=== PATIENT | male | born 1970 | race Caucasian/White ===

== ENCOUNTER 2019-08-24 13:04 | Outpatient (RCR) | payer OTHER, SELFPAY ==
--- NOTE | 2019-08-24 14:18 | HMH.PTOPEV ---
PT Outpatient Evaluation Rehab PT Outpatient Evaluation Start: 08/24/19 13:32 Freq: Status: Active Protocol: Document 08/24/19 14:03 NATHAN (Rec: 08/24/19 14:18 PHORCHERYLE [id number]) Electronically Signed By Ishan Baker, PT 08/24/19 14:03 Outpatient Therapy Subjective History Subjective History Pt is 48 yowm who presents with c/o pain in the R elbow x ~ 2-3 mos with insidious onset of symptoms. He reports pain is worse with lifting anything and any push/pull activity. 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 He has significant PMH with 2 extreme reconstructions of the R shld, pacemaker placement, 3 lumbar discectomies, 2 x L knee total reconstruction, and seizure disorder. He also reports intermittent tingling or numbess in the R 4th and 5th fingers (Tinel's sign positive at the medial elbow over the ulnar nerve). He reports limited relief from tylenol, ice packs, and oral steroids. Chief Complaint Pain,Stiff Symptom Type Ache,Sharp,Dull Symptoms Relieved By Rest/Positioning Symptoms Aggravated By Physical Activity,Lifting Prior Functional Limitations Reaching Current Functional Limitations Reaching,Lifting Symptom Description Constant but Variable Level of pain today (0-10) 5 Pain scale - at its worst (0-10) 8 Shoulder/Elbow Eval Shoulder Objective Measurements Shoulder MMT Right Anterior Deltoid Strength Grade 4 Good Shoulder Abduction Strength Grade 4 Good Shoulder Flexion Strength Grade 4 Good Shoulder Horizontal Abduction Strength 4 Good Grade Shoulder External Rotation Strength 4 Good Grade Shoulder Internal Rotation Strength 4 Good Grade Elbow Objective Measurements Palpation Tenderness Elbow Palpation Overall Comment R med epicondyle, lat epicondyle, distal bicep tendon, and tricep tendon Elbow Palpation Finding Tenderness tenderness over the lateral epicondyle right elbow exam st
== END 2019-08-24 13:05 | disposition home or self-care (01) ==
LOC: PT 13:04
PROVIDERS: PCP Nurse Practitioner; Visit Provider Orthopaedic Surgery
DX: M77.11 Lateral epicondylitis, right elbow (principal)
CPT/HCPCS: 97163

== ENCOUNTER → 2019-09-18 09:09 | Outpatient (CLI) | payer OTHER, SELFPAY ==
--- NOTE | 2019-09-18 09:12 | XR_ITS ---
PROCEDURE: XR ELBOW RT MIN 3V CLINICAL INDICATION: elbow pain COMPARISON: XR ELBOW RT MIN 3V from 07/12/2019 FINDINGS: No fracture or dislocation. There is normal mineralization. The joint spaces are well-preserved. No significant degenerative/arthritic changes. No erosive changes evident. Other findings:There is a small sclerotic area involving the proximal aspect the ulna and could be due to a bone island unchanged 07/12/2019. IMPRESSION: No change no acute finding Dictated by: Hiram Tipton MD 09/18/2019 09:56 Electronically signed by Hiram Tipton MD in [place] 09/18/2019 09:56
--- NOTE | 2019-09-18 09:12 | XR_ITS ---
PROCEDURE: XR SHOULDER RT MIN 2V CLINICAL INDICATION: shoulder pain COMPARISON: No exams were available for comparison FINDINGS: There are postsurgical changes with 2 anchors along the humeral head. There are mild osteoarthritic changes of the glenohumeral joint. Acromioclavicular joint has an unremarkable appearance. No acute fracture or dislocation. IMPRESSION: Postsurgical change with minimal osteoarthritic change of the glenohumeral joint Dictated by: Hiram Tipton MD 09/18/2019 09:41 Electronically signed by Hiram Tipton MD in [place] 09/18/2019 09:41
== END ==
PROVIDERS: PCP Nurse Practitioner; Visit Provider Orthopaedic Surgery
DX: M25.521 Pain in right elbow (principal); M25.511 Pain in right shoulder
CPT/HCPCS: 73030; 73080

== ENCOUNTER → 2019-09-25 10:32 | Outpatient (CLI) | payer OTHER, SELFPAY ==
--- NOTE | 2019-10-08 16:52 | PC.NURSE ---
165- pt notified of negative covid-19 test results 1656- RUKHSANA martin NOTIFIED AT THIS TIME. 1658 DR. ACOSTA NOTIFIED
[2019-10-08 18:32] LABS: Covid-19 Nasal PCR Sendout Lex Not Detected (Not Detected)
== END ==
PROVIDERS: Visit Provider Nurse Practitioner
DX: R05 Cough (principal); J02.9 Acute pharyngitis, unspecified; R06.02 Shortness of breath

== ENCOUNTER 2019-12-07 13:59 | Emergency (ER) | payer OTHER, SELFPAY ==
[2019-12-07 14:00] VITALS: BP 155/95; PULSE 85; RESP 20; TEMP 36.9; O2SAT 100
--- NOTE | 2019-12-07 14:16 | US_ITS ---
PROCEDURE: US TESTICULAR CLINICAL INDICATION: SWOLLEN LT TESTICLE, PAIN Painful and swollen left testicle COMPARISON: No exams were available for comparison FINDINGS: Right testicle is 4.4 x 2.6 x 2.8 cm. There is an epididymal cyst measuring 16 by 10 mm. There is blood flow to the right testicle. No testicular mass or hydrocele. The left testicle is 4 x 2.3 x 3.2 cm and has an unremarkable appearance. Blood flow is present. No mass evident. No hydrocele. IMPRESSION: Small epididymal cyst on the right otherwise negative scrotal ultrasound Dictated by: Hiram Tipton MD 12/07/2019 15:13 Electronically signed by Hiram Tipton MD in [place] 12/07/2019 15:13
--- NOTE | 2019-12-07 14:20 | PC.NURSE ---
Pt given urinal to obtain urine spec
--- NOTE | 2019-12-07 14:20 | PC.NURSE ---
rad called for us
--- NOTE | 2019-12-07 14:27 | PC.NURSE ---
Pt with US
[2019-12-07 14:31] LABS: Microscopic, Urine URINE MICROSCOPIC (MICROSCOPIC)
--- NOTE | 2019-12-07 14:48 | PC.NURSE ---
pt returned from rad
--- NOTE | 2019-12-07 14:51 | HMH.EDUROGM ---
ED Disposition Clinical Impression: Epididymitis Disposition: Home, Self-Care Condition on Discharge: Good Instructions: DI for Testicular Pain Additional Instructions: see dr moncada in am Prescriptions: levoFLOXacin [Levaquin 500mg tab] 500 mg PO DAILY #7 tab Transmission Status: Pending to [facility] Ketorolac Tromethamine [Toradol 10mg tablet] 10 mg PO Q6H 5 Days #10 tab Transmission Status: Pending to [facility] Referrals: Georgette Adame APRN [Primary Care Provider] - Felix Moncada MD [Staff Physician] - - Critical Care Critical Care Time: No Attestation: On 12/07/19, the high probability of a clinically significant, sudden or life threatening deterioration of the following system(s) required my full and direct attention, intervention and personal management. The time I documented below is in addition to time spent performing reported procedures but includes the following listed in this critical care notation. Medical Decision Making - Medical Records Medical records reviewed: Yes: I reviewed the patient's medical records. - Santosh Inquiry Pt receiving controlled substance: No Vital Signs: 12/07/19 14:00 Temperature 98.4 F Temperature Source Oral Pulse Rate [Right Radial] 85 Respiratory Rate 20 Blood Pressure [Right Arm] 155/95 H Blood Pressure Mean [Right Arm] 115 Blood Pressure Source [Right Arm] Automatic Cuff Blood Pressure Position [Right Arm] Sitting 02 Sat by Pulse Oximetry 100 Oxygen Delivery Method Room Air - Lab Data Lab results reviewed: Yes: I reviewed the patient's lab results. Lab Results 12/07/19 14:25: Urine Color Straw, Urine Appearance Clear, Urine pH 7.0, Ur Specific [place] 1.020, Urine Protein Trace, Urine Glucose (UA) Negative, Urine Ketones Negative, Urine Blood Negative, Urine Nitrate Negative, Urine Bilirubin Negative, Urine Urobilinogen 0.2, Ur Leukocyte Esterase Negative, Urine WBC Occasional, Urine Bacteria 1+, Urine Mucus 1+, Urine Sperm 1+ Orders (Tests/Meds): ED MEDICATIONS Generic Name Dose Route Start Last Admin Trade Name Freq PRN Reason Stop Dose Admin Sodium Chloride 1,000 mls @ 999 mls/hr 12/07/19 14:22 12/07/19 14:59 Sod Chlor 0.9% 1000ml Bag IV 12/07/19 15:22 999 mls/hr .Q1H1M ONE Administration Discontinued Medications Generic Name Dose Route Start Last Admin Trade Name Amari PRN Reason Stop Dose Admin Ketorolac Tromethamine 30 mg 12/07/19 14:22 12/07/19 14:59 Toradol 30mg/Ml Vial IV 12/07/19 14:23 30 mg ONCE ONE Administration Levofloxacin 500 mg 12/07/19 15:05 12/07/19 15:07 Levaquin 500mg Tab PO 12/07/19 15:06 500 mg ONCE ONE Administration Protocol ORDERS Category Date Time Status Complete Blood Count Auto Diff Stat Lab 12/07/19 14:16 Ordered Comprehensive Metabolic Panel Stat Lab 12/07/19 14:16 Ordered - US Data US Images: Other (scrotal) ED US Reviewed: Yes: I have viewed radiologist's interpretation Findings Narrative: no torsion Male Urogenital HPI - General Chief complaint: Urogenital-Male Stated complaint: left testicle pain Time Seen by Provider: 12/07/19 14:51 Mode of Arrival: Ambulatory Source of Information: Patient, Medical Record Limitations: No Limitations Description of Symptoms (Recalled from ER Triage Doc. by RN): PT C/O LT TESTICULAR PAIN/SWELLING THAT BEGAN YESTERDAY AND HASN'T GOTTEN ANY BETTER - History of Present Illness HPI Narrative: atraumatic lt testicular pain which started yesterday - no fever or penile d/c or std or lesions - heterosexual - MD Complaint: testicle pain, testicle swelling Onset (ago): day(s) Duration: constant Location: left testicle Severity: moderate Reports: denies other symptoms - Related Data Sexually active: Yes Home Medications Medication Instructions Recorded Confirmed alprazolam 1 mg tablet 1 mg PO QID tab 02/06/19 09/24/19 Previous Rx's Medication Instructi
[2019-12-07 14:56] LABS: Appearance,Urine CLEAR (Clear); Bilirubin,Urine Negative (Negative); Blood, Urine Negative (Negative); Color,Urine STRAW (Yellow); Glucose,Urine (UA) Negative (Negative); Ketones,Urine Negative (Negative); Leukocyte Esterase,Urine Negative (Negative); Nitrate,Urine Negative (Negative); Protein,Urine TRACE (Negative); Urobilinogen,Urine 0.2 EU/dl (0.2)
[2019-12-07 15:11] LABS: Bacteria,Urine 1+ /lpf; Mucus,Urine 1+ /lpf; Sperm,Urine 1+ /lpf; WBC,Urine Occasional #/hpf (0-3)
[2019-12-07 15:42] VITALS: BP 131/78; PULSE 76; RESP 18; TEMP 36.7; O2SAT 98
[2019-12-07 15:42] LABS: Basophils # 0.1 K/mm3 (0-0.2); Basophils % 0.9 % (0.1-2.0); Eosinophils # 0.2 K/mm3 (0.0-0.4); Eosinophils % 2.5 % (0.1-12.0); Hematocrit 46.1 % (42.0-52.0); Hemoglobin 15.4 g/dL (14.1-18.0); Lymphocytes # 1.4 K/mm3 (0.7-4.5); Lymphocytes % 18.6 % (10-50); Mean Corpuscular HGB Conc 33.4 g/dL (31.8-35.4); Mean Corpuscular Hemoglobin 30.5 pg (27.0-31.2); Mean Corpuscular Volume 91.2 fl (80-94); Mean Platelet Volume 7.9 fl (7.4-10.4); Monocytes # 0.5 K/mm3 (0.1-1.0); Monocytes % 5.9 % (1.7-9.3); Neutrophils # 5.5 K/mm3 (1.8-7.8); Neutrophils % 72.1 % (37.0-80.0); Platelet Count 248 K/mm3 (142-424); Red Blood Count 5.06 M/mm3 (4.60-6.20); Red Cell Distribution Width 13.9 % (11.5-17.5); White Blood Count 7.6 K/mm3 (4.8-10.8)
--- NOTE | 2019-12-07 15:44 | PC.NURSE ---
PT WAS OFFERED ADDITIONAL PAIN MEDICATION PRIOR TO D/C BUT PT REFUSED.
[2019-12-07 15:47] LABS: Alanine Aminotransferase 20 U/L (12-78); Albumin/Globulin Ratio 1.6 (1.1-1.8); Alkaline Phosphatase 120 U/L (38-126); Anion Gap 10.3 mEq/L (5-15); Aspartate Amino Transferase 30 U/L (17-59); Bilirubin,Total 0.4 mg/dl (0.2-1.3); Blood Urea Nitrogen 19 mg/dl (9-20); Calcium 9.6 mg/dl (8.4-10.2); Carbon Dioxide 30 mmol/L (22.0-30.0); Chloride 99 mmol/L (98-107); Creatinine Clearance Estimated 63 mL/min (50-200); Estimated Glomerular Filt Rate 59 ml/min (>60); GFR (African American) 72 ML/MIN (>60); Globulin 3.1 g/dL (1.3-3.2); Glucose 97 mg/dl (74-100); Potassium 4.3 mmoL/L (3.5-5.1); Sodium 135 mmol/L (136-145); Total Protein,Serum 8.1 g/dl (6.3-8.2)
== END 2019-12-07 15:44 | disposition home or self-care (01) ==
PROVIDERS: Emergency Provider Emergency Medicine; PCP Nurse Practitioner
DX: N45.1 Epididymitis (principal); F41.8 Other specified anxiety disorders; Z87.891 Personal history of nicotine dependence; G43.709 Chronic migraine without aura, not intractable, without status migrainosus; G40.909 Epilepsy, unspecified, not intractable, without status epilepticus; Z79.899 Other long term (current) drug therapy
CPT/HCPCS: 76870; 80053; 81001; 85025; 96365; 96375; 99283

== ENCOUNTER 2020-04-12 16:04 | Emergency (ER) | payer OTHER, SELFPAY ==
--- NOTE | 2020-04-12 16:10 | XR_ITS ---
PROCEDURE: XR SHOULDER RT MIN 2V CLINICAL INDICATION: PAIN Posttraumatic pain COMPARISON: CR XR SHOULDER RT MIN 2V from 09/18/2019 FINDINGS: No fracture or dislocation. No lytic or blastic change. There is normal mineralization. Mild osteoarthritic changes are present with slight decrease in the joint space. Postsurgical changes with 2 anchor screws in the humeral head Other findings:None. IMPRESSION: Postsurgical and mild osteoarthritic change, no acute finding Dictated by: Hiram Tipton MD 04/12/2020 16:48 Hiram Tipton MD in [place] 04/12/2020 16:48
--- NOTE | 2020-04-12 16:10 | HMH.EDUTC ---
[facility] Disposition Clinical Impression: Shoulder separation Disposition: Home, Self-Care Condition on Discharge: Good Instructions: AC Joint Separation Additional Instructions: Rest the extremity, apply ice for 15 minutes as tolerated three or four times per day, Elevate the extremity as tolerated while you are resting. Take ibuprofen for pain. Follow up with Dr. Hays. I put in a referral but you need to call her office and schedule an appointment. Follow up with your regular doctor. GO TO THE ER FOR ANY WORSENING SYMPTOMS Prescriptions: Ibuprofen [Ibuprofen 600mg Tablet] 600 mg PO Q6HP PRN #30 tab PRN Reason: Mild Pain Transmission Status: Received by [facility] Referrals: Georgette Adame APRN [Primary Care Provider] - Emily Hays MD [Physician] - Forms: Work/School Release Time of Disposition: 16:53 Medical Decision Making - Medical Records Medical records reviewed: No: I reviewed the patient's medical records. - Santosh Inquiry Pt receiving controlled substance: No Vital Signs: 04/12/20 16:13 04/12/20 17:06 Temperature 98.0 F Pulse Rate 70 Pulse Rate [Left Brachial] 70 Respiratory Rate 21 21 Blood Pressure 145/89 H Blood Pressure [Left Arm] 145/89 H Blood Pressure Mean [Left Arm] 107 Blood Pressure Source [Left Arm] Automatic Cuff Blood Pressure Position [Left Arm] Sitting 02 Sat by Pulse Oximetry 98 Oxygen Delivery Method Room Air - Radiology Data #1 Image(s): Shoulder Image Reviewed: Yes I reviewed the patient's radiology image Preliminary Findings: Abnormal, No Fracture Seen [facility] HPI - General Stated complaint: ao [id number] INJURED R SHOULDER Time Seen by Provider: 04/12/20 16:20 - History of Present Illness Provider Complaint: He states the 2 days ago he picked up a heavy board and almost dropped it. When he did this it resulted in him pulling his right arm and right shoulder. He has had right shoulder pain since then. The pain is worse with moving the arm. He has a history of having rotator cuff surgery on that shoulder several years ago. He states he feels like he has torn something back loose since this injury. - Related Data Home Medications Medication Instructions Recorded Confirmed alprazolam 1 mg tablet 1 mg PO QID tab 02/06/19 04/12/20 Vortioxetine Hydrobromide 20 mg PO DAILY 04/12/20 04/12/20 [Trintellix] Previous Rx's Medication Instructions Recorded Ibuprofen [Ibuprofen 600mg 600 mg PO Q6HP PRN #30 tab 04/12/20 Tablet] Allergies Allergy/AdvReac Type Severity Reaction Status Date / Time Tricyclic Compounds Allergy Unknown Verified 12/08/19 10:56 [TRICYCLIC COMPOUNDS] [facility] History - Hepatitis A Screen Attestation statement:: This patient has been screened for Hepatitis A risk factors. I have reviewed the patient's past medical history: Yes Medical History: Reports:: Anxiety, Asthma, Cancer, Internal Pacemaker, Seizures Denies:: Diabetes Mellitus Type 1, Diabetes Mellitus Type 2 Other Medical History: Reports: Arthritis Other Surgeries: Yes: Cancer Surgery, Pacemaker Amputation: No Fractures: Yes (ANKLE) Comment: 3 lower back, left knee reconstruction, right shoulder reconstruction - Social History Smoking Status: Former smoker Tobacco Type: cigarettes # Packs/Day (cigarettes): 1 Alcohol Intake: current Alcohol Intake Frequency:: holidays/special occasions only Substance Use Type: denies use Occupational Status: employed - Psychiatric History Pschychiatric History:: Reports:: Anxiety Family Hx:: Cancer, Hyperlipidemia, Heart Attack, Hypertension ROS Obtained: Yes All systems reviewed & no additional complaints - Constitutional Constitutional: Denies chills, Denies fever(s) - Musculoskeletal Musculoskeletal: Reports as per HPI - Integumentary/Breasts Skin/Breast: Denies redness, Denies rash, Denies wounds - Neurologic Neurologic: Denies tingling/numbne
[2020-04-12 16:13] VITALS: BP 145/89; PULSE 70; RESP 21; O2SAT 98; BMI 23.7
[2020-04-12 17:06] VITALS: BP 145/89; PULSE 70; RESP 21; TEMP 36.7; O2SAT 98
== END 2020-04-12 17:10 | disposition home or self-care (01) ==
PROVIDERS: Emergency Provider Nurse Practitioner Family; PCP Nurse Practitioner
DX: S43.001A Unspecified subluxation of right shoulder joint, initial encounter (principal); X50.0XXA Overexertion from strenuous movement or load, initial encounter; Y92.89 Other specified places as the place of occurrence of the external cause; Z95.0 Presence of cardiac pacemaker; G40.909 Epilepsy, unspecified, not intractable, without status epilepticus; Z87.891 Personal history of nicotine dependence
CPT/HCPCS: 73030; 99201

== ENCOUNTER → 2020-05-19 12:57 | Outpatient (CLI) | payer OTHER, SELFPAY ==
--- NOTE | 2020-05-19 12:59 | CT_ITS ---
PROCEDURE: CT SHOULDER RT W CON CLINICAL HISTORY: Rt shoulder pain,, hx of 2 reconstructions, right shoulder pain with limited range of motion, recent injury COMPARISON: CR XR SHOULDER RT MIN 2V from 04/12/2020 TECHNIQUE: Please see arthrogram report for description of that technique. Axial images obtained with sagittal and coronal reformats. All CT scans at the facility use one or more dose reduction, viz: automated exposure control, ma/kV adjustment per patient size (including targeted exams where dose is matched to indication, i.e. head), or iterative reconstruction technique. FINDINGS: There was normal localization of contrast within the shoulder joint. Contrast does not localize in the sub acromial region. No evidence of a full-thickness rotator cuff tear. There are 2 anchor screws in the humeral head anteriorly. There are mild osteoarthritic changes of the shoulder. There is a small defect within the superior glenoid labrum best seen on the coronal images series 601, image 28. This communicates with the articular surface and may be due to small incomplete labral tear versus a sublabral recess. The bicipital tendon appears in place. No acute fracture or dislocation is evident. No lytic or blastic change. IMPRESSION: 1. No evidence of rotator cuff tear. 2. Irregularity involving the superior aspect of the glenoid labrum possibly due to small labral tear versus a sublabral recess. 3. Osteoarthritic changes. Dictated by: Hiram Tipton MD 05/20/2020 06:04 Hiram Tipton MD in [place] 05/20/2020 06:04
--- NOTE | 2020-05-19 13:44 | IR_ITS ---
PROCEDURE: IR ARTHROGRAM SHOULDER RT CLINICAL INDICATION: RIGHT SHOULDER PAIN COMPARISON: CT CT SHOULDER RT W CON from 05/19/2020 FINDINGS: Technique: Following obtaining informed consent and time-out procedure with fluoroscopic guidance and local anesthesia with 1 percent buffered lidocaine, a 22 gauge spinal needle was inserted into the shoulder joint capsule via the anterior approach. Approximately 10 mL of a 50: 50 mixture of Optiray 320 and normal saline was injected into the shoulder joint. The patient tolerated the procedure well without evidence of immediate complication. Post exercise images were then obtained. The patient was then taken to CT where thin section images were obtained with multiplanar reformats. There was normal localization of contrast in this patient that has had a prior shoulder surgery with [address] There is no evidence of rotator cuff tear. Mild osteoarthritic changes are present at the shoulder joint. IMPRESSION: No evidence of rotator cuff tear. Mild osteoarthritis. Please see CT arthrogram report for further description Dictated by: Hiram Tipton MD 05/20/2020 08:47 Hiram Tipton MD in [place] 05/20/2020 08:47
== END ==
PROVIDERS: PCP Nurse Practitioner; Visit Provider Orthopaedic Surgery
DX: M19.011 Primary osteoarthritis, right shoulder (principal)
CPT/HCPCS: 73040; 73201

== ENCOUNTER → 2020-08-20 09:58 | Outpatient (CLI) | payer OTHER, SELFPAY ==
[2020-08-20 11:00] LABS: Coronavirus 19 IgG Antibody Negative (Negative)
[2020-08-20 11:01] LABS: Coronavirus 19 IgM Antibody Negative (Negative)
== END ==
PROVIDERS: Visit Provider Internal Medicine Gastroenterology
DX: Z01.818 Encounter for other preprocedural examination (principal); Z20.822 Contact with and (suspected) exposure to COVID-19; Z13.810 Encounter for screening for upper gastrointestinal disorder; Z12.11 Encounter for screening for malignant neoplasm of colon
CPT/HCPCS: 36415; 86328

== ENCOUNTER 2020-08-22 08:36 | Day surgery (SDC) | payer OTHER, SELFPAY ==
[2020-08-16 15:25] VITALS: BMI 25.1
[2020-08-22 08:58] VITALS: BP 158/89; PULSE 54; RESP 18; TEMP 36.6; O2SAT 97
[2020-08-22 09:33] VITALS: O2SAT 97
--- NOTE | 2020-08-22 09:49 | HMH.PROC ---
[facility] Procedure Note Procedure Note:: Upper Endoscopy Procedure Report: Esophagogastroduodenoscopy with cold biopsies Endoscopost: Scott Patel II, MD Referring Physician: Juan Luis Kaminski MD Date of Procedure: August 22, 2020 Equipment: Olympus GIF 180 standard upper endoscope Sedation: MAC sedation Indications: Mr. Purdy is a 49-year-old gentleman who is here for diagnostic upper endoscopy. He has had worsening heartburn and reflux. He has had epigastric and some lower abdominal pain and discomfort. He has bloating, nausea and some bilious vomiting. His CAT scan in January 2020 showed some mild enteritis. He was placed on metronidazole. He gets worse and nausea when he bends over and sometimes after he eats postprandially. He will have emesis 2 or 3 times weekly. He reports no weight loss. The patient also has some chronic diarrhea since September 2019. Procedure: Prior to the procedure, a history and physical exam was performed, and patient's medications and allergies were reviewed. The risks, benefits and alternatives of the sedation and procedure were discussed with the patient. All questions were answered and informed consent was obtained. The patient was brought to the procedure room. Patient identification and proposed procedure were verified by the physician and the nurse. The patient was placed in a left lateral decubitus position and the scope was passed under direct vision. Throughout the procedure, the patient's blood pressure, pulse, and oxygen saturations were monitored continuously. The upper GI endoscopy was accomplished without difficulty. The patient tolerated the procedure well. Findings: The scope was passed directly into the upper esophagus and advanced to the third portion of the duodenum. The post bulbar duodenum and duodenal bulb were normal with normal mucosa and conniventes. Biopsies were taken from the post bulbar duodenum to rule out celiac disease. The scope was withdrawn through a normal duodenal bulb and pylorus into the stomach. There was bile reflux with linear reactive gastropathy of the antrum and body. The remainder of the proximal body and fundus of the stomach were grossly normal. Upon retroflexion there was no hiatal hernia. 2 biopsies were taken in the antrum and along the lesser curvature for histology to rule out gastritis and/or H pylori. There was a gastric fundic polyp in the fundus of the stomach removed via cold biopsy. The scope was then withdrawn into the esophagus. There was grade B (LA classification) reflux esophagitis. A biopsy was taken at the GE junction to rule out intestinal metaplasia. The remainder of the esophageal mucosa was normal. Impression: 1. Grade B reflux esophagitis 2. Bile reflux with linear reactive gastropathy 3. Gastric fundic gland polyp Plan: I will follow-up the biopsies. I do feel that the patient has functional dyspepsia. He also has reflux esophagitis and I would recommend omeprazole daily. We will discuss additional dietary measures and treatment options. I will proceed with colonoscopy.
--- NOTE | 2020-08-22 10:07 | HMH.PROC ---
[facility] Procedure Note Procedure Note:: Colonoscopy Procedure Report: Colonoscopy with cold snare polypectomy and cold biopsies Endoscopist: Scott Patel II, MD Referring physician: Juan Luis Kaminski MD Date of Procedure: August 22, 2020 Equipment: Olympus 180 variable stiffness pediatric colonoscope Sedation: MAC sedation Indication: Mr. Nichole is a 49-year-old gentleman with chronic diarrhea that began in September 2019 and is here for diagnostic colonoscopy. He does report lower abdominal pain and watery diarrhea daily. His CAT scan in January 2020 showed some mild retention of stool as well as possible enteritis. He was treated with metronidazole. He reports no rectal bleeding or weight loss. He does have some gassiness and bloating. He reports no family history of colitis, Crohn's disease or colon cancer. His sister has irritable bowel syndrome. The patient's last colonoscopy was 4 to 5 years ago. Procedure: Prior to the procedure, a history and physical exam was performed, and patient's medications and allergies were reviewed. The risks, benefits and alternatives of the sedation and procedure were discussed with the patient. All questions were answered and informed consent was obtained. The patient was brought to the procedure room. Patient identification and proposed procedure were verified by the physician and the nurse. The patient was placed in a left lateral decubitus position and the scope was passed under direct vision. Throughout the procedure, the patient's blood pressure, pulse, and oxygen saturations were monitored continuously. The colonoscopy was accomplished without difficulty. The patient tolerated the procedure well. Findings: On digital rectal examination there was normal rectal tone. There were no external hemorrhoids. The prostate was 2+, mildly firm but symmetric without nodules. The colonoscope was introduced through the anal canal to the rectum and advanced to the cecum. The ileocecal valve and appendiceal orifice were identified. The scope was advanced a short distance into the ileum which appeared grossly normal. The scope was then withdrawn into the colon. The cecum and ascending colon were normal. Cold biopsies were taken from the right colon to rule out microscopic colitis. Within the transverse colon, there was a 4 mm polyp that was removed via cold snare polypectomy. The remaining descending, sigmoid and rectum were grossly normal. There were no mucosal abnormalities identified. Upon retroflexion within the rectum there were grade 1-2 internal hemorrhoids.The preparation was excellent throughout with [place] Preparation Score of 9. The cecal time was 12 minutes. Impression: 1. Diminutive transverse colon polyp 2. Grade 1-2 internal hemorrhoids Plan: I will follow up the polyp pathology and recommend repeat colonoscopy again in 7 years based upon the polyp histology. I suspect chronic IBS diarrhea. I would consider Viberzi. I would also consider dietary measures, bulk fiber, probiotic and IBgard.
[2020-08-22 10:08] VITALS: BP 107/59; PULSE 61; RESP 16; TEMP 36.4; O2SAT 97
[2020-08-22 10:18] VITALS: BP 110/70; PULSE 60; RESP 16; O2SAT 99
--- NOTE | 2020-08-22 10:19 | HMH.ANESCL ---
[facility] Anesthesia Checklist - Patient Identification Patient Identification: Arm Band - Structural Data Admitted From: Home Planned Operative Procedure/s: egd Consent for Planned Operative Procedure(s) Verified: Yes Verified Documents: Surgical Consent, History and Physical - NPO Status Verified Time NPO: 00:00 - Additional verifications Anesthesia Reactions: No - Airway Assessment C-Spine Mobility Assessed: Yes (mp2) TMJ Mobility Assessed: Yes Dentition: Dentures-good fit (removed) - Neurological Assessment Level of Consciousness: Awake, Alert - Anesthesia Plan Anesthesia Risk discussed: Yes Anesthesia Plan: Verified ASA Class: III Anesthesia Type: MAC [facility] History I have reviewed the patient's past medical history: Yes Medical History: Reports:: Anxiety, Arrhythmia, Asthma, Cancer (skin cancer), Internal Pacemaker Denies:: Diabetes Mellitus Type 1, Diabetes Mellitus Type 2, MRSA, Seizures *Have you ever received a pneumonia vaccine?: Yes *Have you received a flu vaccine this season?: No Other Medical History: Reports: Arthritis Anesthesia experience/problems:: nac Laterality Cases: Right: Other Other Surgeries: Yes: Cancer Surgery, Pacemaker Amputation: No Fractures: Yes (ANKLE) - *Social History Last grade of school completed: Advanced degree Smoking Status: Former smoker Tobacco Type: cigarettes, smokeless tobacco # Packs/Day (cigarettes): 1 #Yrs smoked (if former smoker): 20 Alcohol Intake: current Alcohol Intake Frequency:: a few times a week Substance Use Type: denies use *Occupational Status:: unemployed Housing: house Household Members: spouse, family *Travel in the last 8 weeks: None - Psychiatric History Pschychiatric History:: Reports:: Anxiety Family Hx:: Cancer, Coronary Artery Disease, Heart Attack
[2020-08-22 10:28] VITALS: BP 112/66; PULSE 57; RESP 18; O2SAT 99
[2020-08-22 10:38] VITALS: BP 144/74; PULSE 60; RESP 18; O2SAT 99
== END 2020-08-22 10:38 | disposition home health service (06) ==
LOC: OUTP 08:38
PROVIDERS: PCP Nurse Practitioner; Visit Provider Internal Medicine Gastroenterology
PROC: 0DJ08ZZ Inspection of Upper Intestinal Tract, Via Natural or Artificial Opening Endoscopic (ICD-10-PCS; CPT 43235; principal; 2020-08-22 11:00)
DX: K21.9 Gastro-esophageal reflux disease without esophagitis (principal); K31.9 Disease of stomach and duodenum, unspecified; K31.7 Polyp of stomach and duodenum; F41.9 Anxiety disorder, unspecified; J45.909 Unspecified asthma, uncomplicated; M19.90 Unspecified osteoarthritis, unspecified site; Z85.828 Personal history of other malignant neoplasm of skin; Z95.0 Presence of cardiac pacemaker; Z87.891 Personal history of nicotine dependence; Z88.8 Allergy status to other drugs, medicaments and biological substances; Z79.899 Other long term (current) drug therapy
CPT/HCPCS: 43239

== ENCOUNTER 2020-10-05 08:00 | Outpatient (RCR) | payer OTHER, SELFPAY | END 2020-10-05 08:05 | disposition home or self-care (01) | LOC: PT 08:00 | PROVIDERS: Visit Provider Orthopaedic Surgery | DX: M47.12 Other spondylosis with myelopathy, cervical region (principal) | CPT/HCPCS: 20560; 97010; 97012; 97110; 97140; 97163 ==

== ENCOUNTER → 2020-11-21 09:51 | Outpatient (POV) | payer OTHER, SELFPAY | PROVIDERS: Visit Provider Nurse Practitioner Family | DX: Z00.00 Encounter for general adult medical examination without abnormal findings (principal) ==

== ENCOUNTER 2021-01-22 11:54 | Emergency (ER) | payer OTHER, SELFPAY ==
[2021-01-22 12:37] VITALS: BMI 22.5
--- NOTE | 2021-01-22 12:38 | XR_ITS ---
PROCEDURE INFORMATION: Exam: XR Right Hand Exam date and time: 01/22/2021 12:38 PM Age: 50 years old Clinical indication: Pain; Hand; Right; Additional info: Fall TECHNIQUE: Imaging protocol: XR Right hand. Views: 3 or more views. 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 There is no evidence of acute fracture. There is no evidence of joint malalignment or dislocation. Sclerotic density noted within the distal aspect of the ulna may represent a bone island. Soft tissues: There are no soft tissue masses or fluid collections. IMPRESSION: 1. 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 2. No evidence of acute fracture. 3. No evidence of acute dislocation. 4. Sclerotic density noted within the distal aspect of the ulna may represent a bone island.
[2021-01-22 12:40] VITALS: BP 145/97; PULSE 75; RESP 14; TEMP 36.6; O2SAT 98; BMI 23.1
--- NOTE | 2021-01-22 14:25 | HMH.EDUTC ---
[facility] [place] Disposition Clinical Impression: Right hand pain Fall Qualifiers: Encounter type: initial encounter Qualified Code(s): W19.XXXA - Unspecified fall, initial encounter Disposition: Home, Self-Care Condition on Discharge: Good Instructions: DI for Hand Pain Additional Instructions: Rest the extremity, apply ice for 15 minutes as tolerated three or four times per day, Wear the esther wrap for compression, Elevate the extremity as tolerated while you are resting. Take ibuprofen for pain. I sent in a prescription to your pharmacy. Follow up with Dr. Cadet (orthopedics). Sometimes there can be fractures that don't show up well on the first set of x-rays. So, you should follow up if you continue to have symptoms. I put in a referral but you need to call his office and schedule an appointment. Follow up with your regular doctor. GO TO THE ER FOR ANY WORSENING SYMPTOMS Prescriptions: Ibuprofen [Ibuprofen 800mg Tablet] 800 mg PO Q8HP PRN #30 tab PRN Reason: Moderate Pain Transmission Status: Received by [id number] Referrals: Georgette Adame APRN [Primary Care Provider] - Hill Cadet MD [Staff Physician] - Time of Disposition: 14:27 Medical Decision Making - Medical Records Medical records reviewed: No: I reviewed the patient's medical records. - Santosh Inquiry Pt receiving controlled substance: No Reason not queried -: Santosh login issues Vital Signs: 01/22/21 12:40 01/22/21 14:37 Temperature 98 F 98 F Temperature Source Temporal Artery Scan Pulse Rate 79 Pulse Rate [Left] 75 Respiratory Rate 14 16 Blood Pressure 139/91 H Blood Pressure [Right Arm] 145/97 H Blood Pressure Mean [Right Arm] 113 02 Sat by Pulse Oximetry 98 - Radiology Data #1 Image(s): Hand Image Reviewed: Yes I reviewed the patient's radiology image, Yes I have reviewed radiologist's interpretation Preliminary Findings: No Fracture Seen Drink plenty of fluids. Take tylenol or ibuprofen for pain or fever. Take the medications as directed. Follow up with your regular doctor. GO TO THE ER FOR ANY WORSENING SYMPTOMS [facility] [place] HPI - General Stated complaint: fall 01/19 rt hand pain Time Seen by Provider: 01/22/21 12:45 Mode of Arrival: Ambulatory Source of Information: Patient Limitations: No Limitations Description of Symptoms (Recalled from Triage Doc. by RN): pt fell on his R hand, pt is now having pain. HEENT Symptoms (Recalled from RN notes): No Resp Symptoms (Recalled from RN notes): No Skin Symptoms (Recalled from RN notes): No MS Symptoms (Recalled from RN notes): Yes (R hand pain) Functional Status (Recalled from RN notes): na - History of Present Illness Provider Complaint: He states that yesterday he fell and came down on his right hand. Since then he has had right hand and wrist pain. He denies significant swellling today. - Related Data Home Medications Medication Instructions Recorded Confirmed alprazolam 1 mg tablet 1 mg PO QID tab 02/06/19 08/22/20 Bifidobacterium Infantis [Align] 4 mg PO DAILY 08/16/20 08/22/20 Gabapentin [Gabapentin 100mg Cap] 100 mg PO DAILY 08/16/20 08/22/20 Cyclobenzaprine HCl 10 mg PO TIDP PRN 08/22/20 08/22/20 [Cyclobenzaprine 10mg Tab*] Omeprazole [Omeprazole 20mg 20 mg PO DAILY 08/22/20 08/22/20 Capsule] Previous Rx's Medication Instructions Recorded vortioxetine 20 mg tablet 20 mg PO DAILY #90 tab 12/20/20 Ibuprofen [Ibuprofen 800mg 800 mg PO Q8HP PRN #30 tab 01/22/21 Tablet] Allergies Allergy/AdvReac Type Severity Reaction Status Date / Time Tricyclic Compounds Allergy Unknown Verified 01/22/21 12:43 [TRICYCLIC COMPOUNDS] - Worker's Comp Is this a Worker's Comp case?: No [facility] History - Hepatitis A Screen Drug use history?: No High risk sexual behaviors?: No History of sexually transmitted infection?: No Currently employed?: No Childcare worker?: No Do you have indoor plumbi
[2021-01-22 14:37] VITALS: BP 139/91; PULSE 79; RESP 16; TEMP 36.6
== END 2021-01-22 14:37 | disposition home or self-care (01) ==
PROVIDERS: Emergency Provider Nurse Practitioner Family; PCP Nurse Practitioner
DX: M79.641 Pain in right hand (principal); F41.9 Anxiety disorder, unspecified; Z95.0 Presence of cardiac pacemaker; J45.909 Unspecified asthma, uncomplicated; F17.210 Nicotine dependence, cigarettes, uncomplicated
CPT/HCPCS: 73130; 99202; G0463

== ENCOUNTER 2021-07-20 08:59 | Emergency (ER) | payer OTHER, SELFPAY ==
[2021-07-20 09:05] VITALS: BP 136/91; PULSE 101; RESP 21; TEMP 37.1; O2SAT 100; BMI 24.4
--- NOTE | 2021-07-20 09:45 | HMH.EDUTC ---
[facility] [place] Dis[place] Clinical Impression: URI (upper respiratory infection) Qualifiers: URI type: unspecified URI Qualified Code(s): J06.9 - Acute upper respiratory infection, unspecified Disposition: Home, Self-Care Condition on Discharge: Good Instructions: Sore Throat, DI for Fever (Symptom) -- Adult Additional Instructions: *Monitor Temp, Over the counter Motrin or Tylenol as directed/as needed Tylenol every 4 hours and Motrin every 6 hours (as long as your family doctor has told you that you can take it) for fever or pain. and straight to ER if unable to lower temp less than 101.0 after medication given *Warm salt water gargles may help to soothe the throat *Throat Lozenges *Warm fluids like tea with honey may help to soothe the throat *Sleep elevated *Humidifier/Vaporizer Your throat swab was sent for culture. Those results are typically sent to your primary care. Be sure to follow up in 2-3 days with your family doctor/primary care physician if no improvement so they can review those result and treat if necessary. If you don?t have a primary care doctor, I recommend you get one but in the mean time, you will have to return to a walk in clinic Follow up IMMEDIATELY for new or worsening symptoms or no Noticeable improvement over the next 48-72 hours. 911 for difficulty breathing or swallowing You were tested for today for COVID19 your test result should be back in the next 24-48 hours, you may check your results on the [facility] My Health Portal if you have trouble logging on you can call support or you will get a call if your results are Positive You was given a handout with instructions for Self Quarantine and Self isolation for while you wait on test results and what to do if they are positive If you are positive the Health Dept will be contacting you also Make sure to take your Vitamins Vit. C Vit D and Zinc if you can take them Prescriptions: Benzonatate [Benzonatate 100mg cap] 100 mg PO Q8HP PRN #15 cap PRN Reason: Cough Transmission Status: Received by [id number] Referrals: Juan Luis Kaminski MD [Primary Care Provider] - As needed Forms: Work/School Release Time of Disposition: 09:55 Medical Decision Making - Santosh Inquiry Pt receiving controlled substance: No Santosh was queried for this patient: No Vital Signs: 07/20/21 09:05 07/20/21 09:56 Temperature 98.8 F 98.8 F Temperature Source Oral Pulse Rate 101 H Pulse Rate [Right Brachial] 101 H Respiratory Rate 21 21 Blood Pressure 136/91 H Blood Pressure [Right Arm] 136/91 H Blood Pressure Mean [Right Arm] 106 Blood Pressure Source [Right Arm] Automatic Cuff Blood Pressure Position [Right Arm] Sitting 02 Sat by Pulse Oximetry 100 Oxygen Delivery Method Room Air - Lab Data Lab results reviewed: Yes: I reviewed the patient's lab results. Lab Results 07/20/21 09:14: Influenza Type A Ag Negative, Influenza Type B Ag Negative 07/20/21 09:14: Strep Scn Rapid Clinic Negative Orders (Tests/Meds): ORDERS Category Date Time Status Covid-19 Nasal PCR ([facility]) Routine Lab 07/20/21 09:14 Received Strep Screen Confirmation Stat Micro 07/20/21 09:14 Received [facility] UTC HPI - General Stated complaint: fever,sore throat,runny nose,headache Time Seen by Provider: 07/20/21 09:45 Mode of Arrival: Ambulatory Source of Information: Patient Limitations: No Limitations Description of Symptoms (Recalled from Triage Doc. by RN): PATIENT C/O FEVER, SORE THROAT, CHILLS, BODY ACHES, AND HEADACHE, SINCE YESTERDAY HEENT Symptoms (Recalled from RN notes): Yes Resp Symptoms (Recalled from RN notes): No Skin Symptoms (Recalled from RN notes): No MS Symptoms (Recalled from RN notes): Yes Functional Status (Recalled from RN notes): WNL - History of Present Illness Provider Complaint: Patient state that he started feeling bad yesterday States that he started feeling bad yesterday States that he has continued to feel worse State that he has been havi
[2021-07-20 09:54] LABS: UTC Strep Screen (Rapid) Negative (Negative)
[2021-07-20 09:55] LABS: UTC Influenza A Antigen Negative (Negative); UTC Influenza B Antigen Negative (Negative)
[2021-07-20 09:56] VITALS: BP 136/91; PULSE 101; RESP 21; TEMP 37.1; O2SAT 100
== END 2021-07-20 10:00 | disposition home or self-care (01) ==
PROVIDERS: Emergency Provider Nurse Practitioner; PCP Family Medicine
DX: J06.9 Acute upper respiratory infection, unspecified (principal); U07.1 COVID-19; Z87.891 Personal history of nicotine dependence
CPT/HCPCS: 87804; 87880; 99203; C9803; G0463; U0003; U0005

== ENCOUNTER → 2022-01-01 15:35 | Outpatient (CLI) | payer OTHER, SELFPAY ==
[2022-01-01 16:05] LABS: Basophils # 0.1 K/mm3 (0-0.2); Eosinophils # 0.1 K/mm3 (0.0-0.4); Eosinophils % 1.2 % (0.1-12.0); Hematocrit 46.3 % (42.0-52.0); Hemoglobin 14.9 g/dL (14.1-18.0); Lymphocytes # 1.1 K/mm3 (0.7-4.5); Mean Corpuscular HGB Conc 32.1 g/dL (31.8-35.4); Mean Corpuscular Hemoglobin 31.1 pg (27.0-31.2); Mean Platelet Volume 8.1 fl (7.4-10.4); Monocytes # 0.4 K/mm3 (0.1-1.0); Monocytes % 5.6 % (1.7-9.3); Neutrophils % 76.1 % (37.0-80.0); Platelet Count 229 K/mm3 (142-424); Red Blood Count 4.78 M/mm3 (4.60-6.20); Red Cell Distribution Width 13.9 % (11.5-17.5); White Blood Count 6.6 K/mm3 (4.8-10.8)
[2022-01-01 16:22] LABS: Alanine Aminotransferase 80 U/L (12-78); Albumin Level 4.4 g/dl (3.5-5.0); Albumin/Globulin Ratio 1.6 (1.1-1.8); Alkaline Phosphatase 140 U/L (38-126); Anion Gap 11.4 mEq/L (5-15); Aspartate Amino Transferase 58 U/L (17-59); Blood Urea Nitrogen 12 mg/dl (9-20); Calcium 9.4 mg/dl (8.4-10.2); Carbon Dioxide 30 mmol/L (22.0-30.0); Chloride 102 mmol/L (98-107); Estimated Glomerular Filt Rate 79 ml/min (>60); GFR (African American) 96 ML/MIN (>60); Globulin 2.7 g/dL (1.3-3.2); Glucose 108 mg/dl (74-100); Potassium 4.4 mmoL/L (3.5-5.1); Sodium 139 mmol/L (136-145); Total Protein,Serum 7.1 g/dl (6.3-8.2)
[2022-01-01 16:34] LABS: Bilirubin,Total < 0.1 mg/dl (0.2-1.3)
[2022-01-01 16:40] LABS: Free Thyroxine Index 1.9 ug/dL (5.93-13.13); T4 (Thyroxine) 5.5 ug/dl (5.53-11.0); Triiodothryronine (T3) Uptake 34 % (23.5-40.5)
[2022-01-01 16:54] LABS: Thyroid Stimulating Hormone 2.66 uIU/mL (0.465-4.68)
[2022-01-01 18:06] LABS: Iron 114 ug/dL (49-181)
[2022-01-01 18:15] LABS: Total Iron Binding Capacity 361 ug/dL (261-462)
[2022-01-01 21:09] LABS: Vitamin B12 261 pg/mL (239-931)
[2022-01-15 22:07] LABS: 1,25 Dihydroxy Vitamin D 75 pg/mL (.); 1,25-Dihydroxy, Vitamin D-2 <10 pg/mL (.); 1,25-Dihydroxy, Vitamin D-3 75 pg/mL (.)
== END ==
PROVIDERS: PCP Family Medicine; Visit Provider Nurse Practitioner Psychiatric/Mental Health
DX: Z00.00 Encounter for general adult medical examination without abnormal findings (principal); Z79.899 Other long term (current) drug therapy
CPT/HCPCS: 36415; 80053; 82607; 82652; 83540; 83550; 84436; 84443; 84479; 85025

== ENCOUNTER 2022-04-10 09:22 | Emergency (ER) | payer OTHER, SELFPAY ==
[2022-04-10 09:46] VITALS: BP 164/100; PULSE 67; RESP 18; TEMP 36.7; O2SAT 99; BMI 26.4
--- NOTE | 2022-04-10 09:51 | XR_ITS ---
FINAL REPORT CLINICAL HISTORY: injury, left sided lower rib pain COMPARISON: September 24, 2019 FINDINGS: Two views of the chest were obtained. A the left subclavian pacemaker is present. The heart size and pulmonary vascularity are within normal limits. The mediastinum is normal. No acute pulmonary abnormality is identified. There is no pneumothorax. The bony thorax is intact. IMPRESSION: No active cardiopulmonary disease. Reviewed, Interpreted and Dictated by Steven Jones III, MD Transcribed by Emi Whipple Authenticated and [facility]
--- NOTE | 2022-04-10 09:52 | XR_ITS ---
FINAL REPORT CLINICAL HISTORY: injury, left sided lower rib pain COMPARISON: January 11, 2019 FINDINGS: LEFT RIBS Three views of the left ribs show no acute fracture. There is a chronic left 9th posterior rib fracture. There is no pneumothorax or pleural fluid collection. IMPRESSION: No acute rib fracture. No pneumothorax. Reviewed, Interpreted and Dictated by Steven Jones III, MD Transcribed by Emi Whipple Authenticated and . [facility]
--- NOTE | 2022-04-10 09:54 | EXP.UTC ---
Discharge Plan Disposition Patient Disposition: Home, Self-Care Condition: Good Prescriptions Prescriptions: No Action alprazolam [Xanax] 1 mg tablet 1 mg PO QID Label Comments: previously given before seeing tru meredith 02-06-19 omeprazole 20 mg capsule,delayed release(/EC) 20 mg PO DAILY vortioxetine 20 mg tablet 20 mg PO DAILY Qty: 90 0RF Referrals Follow up/Referrals: Javier Mera MD [Primary Care Provider] - See instructions Activity Restrictions/Add. Instructions Additional Instructions/Restrictions: [id number] ibuprofen for pain. Follow-up with primary care provider if not improved in 1 week. Follow-up with primary care provider regarding elevated liver enzymes. Clinical Impressions Clinical Impression: Chest wall contusion, Abdominal contusion, Elevated liver enzymes Instructions Patient Instructions: DI for Acute Abdominal Pain Discharge ED Provider: Zach Bell [facility] General Chief complaint: Abdominal Pain Stated complaint: pain in Lt side Mode of Arrival: Ambulatory Source of Information: Patient Limitations: No Limitations Time Seen by Provider: 04/10/22 09:45 Description of Symptoms (Recalled from Triage Doc. by RN): pt comes in with c/o left rib pain, shortness of breath, minor neck pain. pt states he was hit in chest/abdomen with a log. 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 He states that it took 3 to 4 minutes to get the log off of him. Since then he has had left sided chest pain and left upper abdomen pain and swelling. He began to have shortness of breath this morning, so he came here to be checked. Related Data Home Medications Medication Instructions Recorded Confirmed alprazolam 1 mg tablet (Xanax) 1 mg PO QID Anxiety 02/06/19 01/23/22 omeprazole 20 mg capsule,delayed 20 mg PO DAILY 01/23/22 01/23/22 release Previous Rx's Medication Instructions Recorded vortioxetine 20 mg tablet 20 mg PO DAILY Depression #90 tabs 01/01/22 Allergies Allergy/AdvReac Type Severity Reaction Status Date / Time Tricyclic Compounds Allergy Unknown Verified 04/10/22 09:51 [TRICYCLIC COMPOUNDS] metoprolol AdvReac fatigue Verified 04/10/22 09:51 Worker's Comp Is this a Worker's Comp case?: No PFSH PFSH Medical History Cardiac pacemaker in situ Palpitations SVT (supraventricular tachycardia) Social History Smoking Status: Former smoker pack-years: 20 second hand exposure: No alcohol intake: never substance use type: denies use current occupational status: other Travel in the last 8 weeks: Inside the [place] household members: spouse and family housing: house number of children: 2 current occupational exposures/hazards: No caffeine: Yes ROS Obtained: Yes All systems reviewed & no additional complaints except as documented Constitutional Constitutional: Denies chills and Denies fever(s) Cardiovascular Cardiovascular: Reports chest pain, Reports dyspnea and Denies lightheadedness Respiratory Respiratory: Denies chest congestion, Denies cough, Reports dyspnea, Denies hemoptysis, Denies stridor and Denies wheezing Gastrointestinal Gastrointestingal: Reports abdominal pain, nausea and vomiting Genitourinary Male Genitourinary: Denies difficulty urinating Musculoskeletal Musculoskeletal: Reports as per HPI Integumentary/Breasts Skin/Breast: Reports redness, Denies rash and Denies wounds Neurologic
--- NOTE | 2022-04-10 10:11 | CT_ITS ---
FINAL REPORT CLINICAL HISTORY: injury luq abd pain FINDINGS: CT OF THE ABDOMEN AND PELVIS WITH CONTRAST Axial CT images of the abdomen and pelvis were obtained after the administration of IV contrast. Coronal reformatted images were also obtained and reviewed.This study was performed with techniques to keep radiation doses as low as reasonably achievable (ALARA). Individualized dose reduction techniques using automated exposure control or adjustment of mA and/or kV according to the patient's size were employed. Abdomen: The heart is normal in size. There is mild fatty infiltration of the liver. The gallbladder is present. The spleen is unremarkable. No adrenal mass is present. The pancreas has an unremarkable appearance. The kidneys are normal, without evidence of mass or hydronephrosis. The aorta is normal in caliber. There is no free fluid or adenopathy. No mass or abnormal fluid collection is seen. There is no evidence of solid organ injury or hemoperitoneum. Pelvis: The appendix not seen. The urinary bladder is unremarkable. No inflammatory process is seen. There is no evidence of mass or adenopathy. There is no evidence of bowel obstruction. IMPRESSION: No evidence of acute intra-abdominal process. No evidence of solid organ injury or hemoperitoneum. Reviewed, Interpreted and Dictated by Steven Jones III, MD Transcribed by Emi Whipple Authenticated and [facility]
--- NOTE | 2022-04-10 10:13 | CT_ITS ---
FINAL REPORT CLINICAL HISTORY: injury lt side chest pain FINDINGS: CT CHEST W/CONTRAST Axial CT images of the chest were obtained with contrast. Coronal reformatted images were also obtained. This study was performed with techniques to keep radiation doses as low as reasonably achievable, (ALARA). Individualized dose reduction techniques using automated exposure control or adjustment of mA and/or KV according to the patient's size were employed. A left subclavian pacemaker is present. There is no evidence of mediastinal or hilar mass or adenopathy. No axillary mass or adenopathy is identified. On lung window images, no pulmonary mass or dominant pulmonary nodule is identified. There is mild biapical scarring. There is no pneumothorax. There is mild dependent atelectasis. There is a calcified granuloma in the right lung base. No fracture is identified on the bone window images. IMPRESSION: No mass or localized inflammatory process. No fracture identified on bone window images. Reviewed, Interpreted and Dictated by Steven Jones III, MD Transcribed by Emi Whipple Authenticated and [facility]
[2022-04-10 10:15] VITALS: BP 183/107; BP 194/116; PULSE 61; RESP 16; TEMP 37.1; O2SAT 98; BMI 26.4
--- NOTE | 2022-04-10 10:15 | HMH.EDGENADL ---
Discharge Plan Disposition Patient Disposition: Home, Self-Care Condition: Good Chief Complaint: Abdominal Pain Prescriptions Prescriptions: No Action alprazolam [Xanax] 1 mg tablet 1 mg PO QID Label Comments: previously given before seeing tru harper 02-06-19 omeprazole 20 mg capsule,delayed release(DR/EC) 20 mg PO DAILY vortioxetine 20 mg tablet 20 mg PO DAILY Qty: 90 0RF Referrals Follow up/Referrals: Javier Mera MD [Primary Care Provider] - See instructions Activity Restrictions/Add. Instructions Additional Instructions/Restrictions: [id number] ibuprofen for pain. Follow-up with primary care provider if not improved in 1 week. Follow-up with primary care provider regarding elevated liver enzymes. Clinical Impressions Clinical Impression: Chest wall contusion, Abdominal contusion, Elevated liver enzymes Instructions Patient Instructions: DI for Acute Abdominal Pain Discharge ED Provider: Zach Bell General Adult HPI General Chief complaint: Abdominal Pain Stated complaint: pain in Lt side Time Seen by Provider: 04/10/22 09:45 Mode of Arrival: Ambulatory Source of Information: Patient Limitations: No Limitations Description of Symptoms (Recalled from ER Triage Doc. by RN): pt comes in with c/o left rib pain, shortness of breath, minor neck pain. pt states he was hit in chest/abdomen with a log. History of Present Illness HPI narrative: Patient is sent from the urgent treatment center. He states that on , 5 days ago, he was hit in his left side of his anterior chest and abdomen by a seizure log, approximately 8 inches diameter and 8 feet long. 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 He says that it knocked the wind out of him but he kept on working. Since then he has continued pain in his abdomen and left anterior chest. Occasional difficulty breathing. He has some pain in his neck posteriorly upper cervical spine area. Denies hitting his head, but thinks that he jerked his neck and might have some minor whiplash. He had a little bit of vomiting this morning but says that he thinks he gagged himself with his toothbrush. Otherwise has been able to eat without difficulty. He feels like there is a rib sticking out on his left anterior lower chest. Related Data Home Medications Medication Instructions Recorded Confirmed alprazolam 1 mg tablet (Xanax) 1 mg PO QID Anxiety 02/06/19 01/23/22 omeprazole 20 mg capsule,delayed 20 mg PO DAILY 01/23/22 01/23/22 release Previous Rx's Medication Instructions Recorded vortioxetine 20 mg tablet 20 mg PO DAILY Depression #90 tabs 01/01/22 Allergies Allergy/AdvReac Type Severity Reaction Status Date / Time Tricyclic Compounds Allergy Unknown Verified 04/10/22 09:51 [TRICYCLIC COMPOUNDS] metoprolol AdvReac fatigue Verified 04/10/22 09:51 PFSH [facility] Medical History Cardiac pacemaker in situ Palpitations SVT (supraventricular tachycardia) Social History Smoking Status: Former smoker pack-years: 20 second hand exposure: No alcohol intake: never substance use type: denies use current occupational status: other Travel in the last 8 weeks: [place] the [place] household members: spouse and family housing: house number of children: 2 current occupational exposures/hazards: No caffeine: Yes ROS Obtained: Yes Systems reviewed as appropriate & no additional complaints except as documented Constitutional Constitutional: Denies fever(s), Denies headache(s) and Denies weakness ENT Ears, Nose, Mouth, and Throat: Denies headache(s) Cardiovascular Cardiovascular: Reports chest pain Respiratory Respiratory: Reports shortness of breath and Denies hemoptysis Gastrointestinal Gastrointestingal: Reports abdomina
--- NOTE | 2022-04-10 10:17 | CT_ITS ---
FINAL REPORT CLINICAL HISTORY: Hit by log falling off log truck FINDINGS: Axial CT images of the cervical spine were obtained without contrast. Sagittal and coronal reformatted images were also obtained. This study was performed with techniques to keep radiation doses as low as reasonably achievable (ALARA). Individualized dose reduction techniques using automated exposure control or adjustment of mA and/or kV according to the patient's size were employed. There is no evidence of fracture or dislocation. The bony alignment is normal. There are mild degenerative changes. There is no evidence of canal stenosis. There is multilevel mild neural foraminal narrowing. No paraspinous soft tissue abnormality is seen. Limited images of the upper thorax are unremarkable. IMPRESSION: No fracture or acute bony abnormality identified. Reviewed, Interpreted and Dictated by Steven Jones III, MD Transcribed by Emi Whipple Authenticated and [facility]
--- NOTE | 2022-04-10 10:18 | PC.NURSE ---
Pt to rad
[2022-04-10 10:33] LABS: Basophils # 0.1 K/mm3 (0-0.2); Basophils % 1.6 % (0.1-2.0); Eosinophils # 0.1 K/mm3 (0.0-0.4); Eosinophils % 1.1 % (0.1-12.0); Hematocrit 51.8 % (42.0-52.0); Hemoglobin 16.7 g/dL (14.1-18.0); Mean Corpuscular HGB Conc 32.2 g/dL (31.8-35.4); Mean Corpuscular Hemoglobin 30.4 pg (27.0-31.2); Mean Corpuscular Volume 94.3 fl (80-94); Mean Platelet Volume 8.1 fl (7.4-10.4); Monocytes # 0.3 K/mm3 (0.1-1.0); Neutrophils # 4.1 K/mm3 (1.8-7.8); Neutrophils % 73.3 % (37.0-80.0); Platelet Count 280 K/mm3 (142-424); Red Blood Count 5.49 M/mm3 (4.60-6.20); Red Cell Distribution Width 13.4 % (11.5-17.5); White Blood Count 5.6 K/mm3 (4.8-10.8)
[2022-04-10 10:42] VITALS: BP 178/96; PULSE 60; RESP 20; O2SAT 99
[2022-04-10 11:00] LABS: Chloride 99 mmol/L (98-107); Potassium 4.5 mmoL/L (3.5-5.1); Sodium 141 mmol/L (136-145)
[2022-04-10 11:03] LABS: Alanine Aminotransferase 88 U/L (12-78); Alkaline Phosphatase 155 U/L (38-126); Anion Gap 15.5 mEq/L (5-15); Aspartate Amino Transferase 69 U/L (17-59); Bilirubin,Total 0.2 mg/dl (0.2-1.3); Blood Urea Nitrogen 12 mg/dl (9-20); Calcium 9.6 mg/dl (8.4-10.2); Carbon Dioxide 31 mmol/L (22.0-30.0); Creatinine Clearance Estimated 109 mL/min (50-200); Estimated Glomerular Filt Rate 79 ml/min (>60); GFR (African American) 96 ML/MIN (>60); Glucose 107 mg/dl (74-100)
[2022-04-10 11:04] LABS: Albumin/Globulin Ratio 1.4 (1.1-1.8); Globulin 3.7 g/dL (1.3-3.2); Lipase 104 U/L (23-300); Total Protein,Serum 8.7 g/dl (6.3-8.2)
[2022-04-10 11:23] VITALS: BP 158/90; PULSE 60; RESP 22; O2SAT 98
[2022-04-10 11:59] VITALS: BP 169/100; PULSE 78; RESP 16; TEMP 36.6; O2SAT 98
== END 2022-04-10 12:00 | disposition home or self-care (01) ==
LOC: UTC 09:24 → ER 10:04
PROVIDERS: Emergency Provider Emergency Medicine; PCP Family Medicine
DX: S20.219A Contusion of unspecified front wall of thorax, initial encounter (principal); S30.1XXA Contusion of abdominal wall, initial encounter; R94.5 Abnormal results of liver function studies; Z88.8 Allergy status to other drugs, medicaments and biological substances; Z95.0 Presence of cardiac pacemaker; R00.2 Palpitations; I47.1 Supraventricular tachycardia; Z87.891 Personal history of nicotine dependence
CPT/HCPCS: 71046; 71101; 71260; 72125; 74177; 80053; 83690; 85025; 96374; 99285; Q9967

== ENCOUNTER 2022-05-08 08:51 | Emergency (ER) | payer OTHER, SELFPAY ==
[2022-05-08] VITALS (7 sets, daily range): BP systolic 139–159; BP diastolic 85–96; PULSE 54–64; RESP 14–24; TEMP 36.7; O2SAT 96–100; BMI 26.4
--- NOTE | 2022-05-08 08:48 | ECG_ITS ---
APPROVED REPORT Exam: Resting ECG HR:63 bpm ECG Measurements Heart Rate 63 AXES OH 154 P 61 QRSd 93 QRS 52 QT 382 T 22 QTc 389 Conclusion SINUS RHYTHM POSSIBLE LEFT ATRIAL ENLARGEMENT [-0.1mV P-WAVE IN V1/V2] BORDERLINE ECG UNCONFIRMED REPORT Electronically signed by : Juan Luis Castillo MD 05/08/2022 21:10:02
--- NOTE | 2022-05-08 08:53 | HMH.EDGENADL ---
Discharge Plan Disposition Patient Disposition: Home, Self-Care Condition: Good Prescriptions Prescriptions: No Action alprazolam [Xanax] 1 mg tablet 1 mg PO QID Label Comments: previously given before seeing tru meredith 02-06-19 omeprazole 20 mg capsule,delayed release(/EC) 20 mg PO DAILY vortioxetine 20 mg tablet 20 mg PO DAILY Qty: 90 1RF Referrals Follow up/Referrals: Javier Mera MD [Primary Care Provider] - See instructions Armando Mitchell MD [Staff Physician] - See instructions Activity Restrictions/Add. Instructions Additional Instructions/Restrictions: Call Dr. Mitchell's office for follow-up appointment. Additional instructions for CHEST PAIN: See your physician as soon as possible for further evaluation. Return immediately if worsening chest pain, vomiting, shortness of breath, fever, coughing of blood. Clinical Impressions Clinical Impression: Atypical chest pain Discharge ED Provider: Zach Bell General Adult HPI General Chief complaint: Chest Pain Stated complaint: CHEST PAIN Time Seen by Provider: 05/08/22 09:20 History of Present Illness HPI narrative: Patient states that he has been having chest pains for 2 weeks. Initially it was a sharp stabbing intermittent pain in his left lower parasternal area. However, for the past 2 days he says he has been having episodes of chest pressure that last up to 5 minutes at a time. Associated with shortness of breath, nausea, diaphoresis. He also says his blood pressure has been all over the place and he has had bad headache. He has a prior history of SVT. He has had an ablation and he has a pacemaker. He says he had a heart cath in 2015 before his pacemaker. He sees Dr. Mitchell. Seen in the cardiology clinic on 04/30/2022. Related Data Home Medications Medication Instructions Recorded Confirmed alprazolam 1 mg tablet (Xanax) 1 mg PO QID Anxiety 02/06/19 05/01/22 omeprazole 20 mg capsule,delayed 20 mg PO DAILY 01/23/22 05/01/22 release Previous Rx's Medication Instructions Recorded vortioxetine 20 mg tablet 20 mg PO DAILY Depression #90 tabs 05/01/22 Allergies Allergy/AdvReac Type Severity Reaction Status Date / Time Tricyclic Compounds Allergy Unknown Verified 05/01/22 11:06 [TRICYCLIC COMPOUNDS] metoprolol AdvReac fatigue Verified 05/01/22 11:06 [facility] Medical History (Updated 05/08/22 @ 13:39 by Zach Bell MD) Cardiac pacemaker in situ Chest pain Generalized anxiety disorder Hypertension Major depressive disorder Palpitations Shortness of Breath SVT (supraventricular tachycardia) Social History (Updated 05/08/22 @ 09:00 by Leticia Guerrero RN) Smoking Status: Current every day smoker tobacco type: cigarettes packs per day: 1 and smokeless tobacco second hand exposure: No alcohol intake: never substance use type: denies use current occupational status: other Travel in the last 8 weeks: Inside the [place] household members: spouse and family housing: house number of children: 2 current occupational exposures/hazards: No caffeine: Yes ROS Obtained: Yes Systems reviewed as appropriate & no additional complaints except as documented Constitutional Constitutional: Denies fever(s), Denies headache(s) and Denies weakness ENT Ears, Nose, Mouth, and Throat: Denies headache(s), Denies nasal discharge and Denies sore throat Cardiovascular Cardiovascular: Denies chest pain Respiratory Respiratory: Denies shortness of breath and Denies cough Gastrointestinal Gastrointestingal: Denies abdominal pain, constipation, diarrhea or vomiting Genitourinary Male Genitourinary: Denies difficulty urinating and Denies flank pain Musculoskeletal Musculoskeletal: Denies numbness Neurologic Neurologic: Denies headache(s), Denies numbness and Denies weakness Physical Exam General General appearance: alert and in no apparent distress Head Head exa
--- NOTE | 2022-05-08 08:55 | PC.NURSE ---
ED MD AT BEDSIDE
--- NOTE | 2022-05-08 09:01 | XR_ITS ---
FINAL REPORT TECHNIQUE: Chest PA & Lateral CLINICAL HISTORY: CHEST PAIN COMPARISON: April 10, 2022 FINDINGS: 2 views of the chest were performed. There is a left subclavian pacemaker. The heart size is normal. The mediastinum is within normal limits. The lungs are hyperinflated consistent with COPD. There is no acute infiltrate. There are no pleural effusions. There is no pneumothorax. The bony thorax appears intact. IMPRESSION: No acute cardiopulmonary process. Reviewed, Interpreted and Dictated by Steven Jones III, MD Transcribed by Charli Acosta Authenticated and [facility]
[2022-05-08 09:09] LABS: Basophils # 0.2 K/mm3 (0-0.2); Basophils % 3.3 % (0.1-2.0); Eosinophils # 0.1 K/mm3 (0.0-0.4); Hematocrit 46.4 % (42.0-52.0); Hemoglobin 15.7 g/dL (14.1-18.0); Lymphocytes % 19.4 % (10-50); Mean Corpuscular HGB Conc 33.8 g/dL (31.8-35.4); Mean Corpuscular Hemoglobin 30.9 pg (27.0-31.2); Mean Corpuscular Volume 91.5 fl (80-94); Mean Platelet Volume 8.4 fl (7.4-10.4); Monocytes # 0.4 K/mm3 (0.1-1.0); Neutrophils # 3.5 K/mm3 (1.8-7.8); Neutrophils % 68.4 % (37.0-80.0); Platelet Count 252 K/mm3 (142-424); Red Blood Count 5.07 M/mm3 (4.60-6.20); Red Cell Distribution Width 13.3 % (11.5-17.5); White Blood Count 5.2 K/mm3 (4.8-10.8)
--- NOTE | 2022-05-08 09:11 | PC.NURSE ---
PT TO XR AT THIS TIME
[2022-05-08 09:14] LABS: Anion Gap 14.4 mEq/L (5-15); Blood Urea Nitrogen 16 mg/dl (9-20); Calcium 8.8 mg/dl (8.4-10.2); Carbon Dioxide 30 mmol/L (22.0-30.0); Chloride 101 mmol/L (98-107); Creatinine Clearance Estimated 109 mL/min (50-200); Estimated Glomerular Filt Rate 79 ml/min (>60); GFR (African American) 96 ML/MIN (>60); Glucose 130 mg/dl (74-100); Potassium 4.4 mmoL/L (3.5-5.1); Sodium 141 mmol/L (136-145)
--- NOTE | 2022-05-08 09:26 | PC.NURSE ---
CARDIOLOGY CALLED AT THIS TIME
[2022-05-08 09:30] LABS: Troponin I < 0.01 ng/ml (0.00-0.034)
--- NOTE | 2022-05-08 09:37 | PC.NURSE ---
DR. SERNA SPEAKING WITH CARDIOLOGY
--- NOTE | 2022-05-08 10:06 | PC.NURSE ---
A BLACK AUTOMATIC FANCY MACHINE OPERATOR AT BEDSIDE
--- NOTE | 2022-05-08 10:10 | PC.NURSE ---
fabián hutchisonn at [facility]
--- NOTE | 2022-05-08 10:10 | PC.NURSE ---
per dimas hutchison she is going to do an echo and if pt second troponin is negative pt can be d/c home they will set pt up for follow up and outpt stress test.
--- NOTE | 2022-05-08 10:16 | CA_ITS ---
APPROVED REPORT EXAM: Comprehensive 2D, Doppler, and color-flow Echocardiogram Senior Technical Writer: Jo Sotomayor CRT Ht: 5 ft 11 in Wt: 190lbs BSA: 2.06 BP: 155/90 mmHg Indications: Chest Pain, Shortness of Breath, Palpitations, pacer 2016,SVT,Ablation 2D Dimensions LVOT 1.77 cm (M/F) 1.5-2.5 LA Volume 34.40 mL LA Volume Index 16.30 mL/m2 (M/F) 16-34 M-Mode Dimensions RVDd 2.72 cm (0.9-2.6) LA Diam 3.20 cm (1.9-4.0) LVDd 5.01 cm (3.5-5.7) Ao Diam 4.17 cm (2.0-3.7) LVDs 3.68 cm (3.5-5.7) IVSd 1.24 cm (0.6-1.1) PWd 0.72 cm (0.6-1.1) EF (Teich) 51.70% FS 26.50% EDV (Teich) 118.80 mL TAPSE 1.94 (<1.7) ESV (Teich) 57.40 mL LV Diastology E Decel Time 173.00 (160-240 msec) E/A Ratio 0.77 MED E' 6.80 (< 7 cm/sec) MED A' 12.10 cm/s E'/MED E' Ratio 6.91 (>14) LAT E' 5.70 (<10 cm/sec) LAT A' 10.00 cm/s E/LAT E' Ratio 8.25 (>14) Aortic Valve AO Peak GR. 4.00 mmHg Mitral Valve MV A Velocity 61.00 (40-130 cm/s) E/A Ratio 0.77 MV Decel. Time 173.00 (160-240 ms) Pulmonary Valve PV Peak Velocity 113.00 (50-150 cm/s) Tricuspid Valve TR P. Velocity 337.00 cm/s RAP Estimate 10.00 mmHg RVSP 55.50 mmHg Left Ventricle Left atrium is mildly enlarged, left ventricle is normal size, there is mild qualitative concentric left ventricular hypertrophy, estimated ejection fraction 55% with no regional wall motion abnormality, Doppler evidence of impaired LV relaxation seen, tissue Doppler is not indicated above left atrial pressure elevation. Right Ventricle Right atrium and right ventricle are normal size and contractility, pacemaker leads in right ventricle. Aortic Valve Aortic valve is minimally thickened and fibrosed there is no aortic stenosis or aortic insufficiency. Mitral Valve Mitral valve leaflets are minimally thickened, there is no mitral stenosis, there is mild mitral regurgitation. Tricuspid Valve Tricuspid valve grossly normal, there is mild tricuspid regurgitation, tricuspid regurgitation jet velocity is inadequate for calculation of the right ventricular systolic pressure. Pulmonic Valve Pulmonic valve is poorly visualized. Great Vessels Aortic root is normal size. Inferior vena cava is normal size with normal inspiratory collapse. Pericardium No significant pericardial effusion noted. Conclusion 1. Normal left ventricular size preserved left ventricular systolic function, estimated ejection fraction 55% with no regional wall motion abnormality, Doppler evidence of impaired LV relaxation seen. 2. Pacemaker lead seen in the right ventricle. 3. Mild mitral and tricuspid regurgitation. 4. No significant pericardial effusion noted. 5. Inferior vena cava is normal size with normal inspiratory collapse. Electronically signed by : Chris Madsen MD 05/09/2022 07:04:29
--- NOTE | 2022-05-08 10:21 | EXP.CARD.CON ---
History of Present Illness History of Present Illness Consult date: 05/08/22 Requesting physician: Zach Bell Consult reason: chest pain Chief complaint: chest pain History of present illness: This is a 51-year-old white gentleman who presented to the emergency department complaints of chest pain. He states that he has been having chest pain for approximately 2 weeks. He states that initially his chest pain started out as a sharp, stabbing sensation in the left side of his chest and then 2 days ago it turned into a pressure sensation. He states that this is in the left side of his chest as well. It last for approximately 5 minutes. It radiates down his left arm and causes numbness. Is associated with shortness of breath, nausea and diaphoresis. He reports that his blood pressure has been all over the place for the last 2 weeks. His blood pressure has consistently been running high at home with systolic blood pressures in the 160s to 170s. He states that he has a headache and dizziness associated with his high blood pressure. The patient does report a history of SVT and is status post ablation and permanent pacemaker placement. He had a left cardiac catheterization in 2016 prior to his pacemaker placement and he had normal coronary arteries. The patient reports he has really had no cardiac ischemic evaluation since that time. [facility] Medical History (Updated 05/08/22 @ 10:26 by Clair Valiente APRN) Cardiac pacemaker in situ Chest pain Generalized anxiety disorder Hypertension Major depressive disorder Palpitations Shortness of Breath SVT (supraventricular tachycardia) Social History (Updated 05/08/22 @ 09:00 by Leticia Guerrero RN) Smoking Status: Current every day smoker tobacco type: cigarettes packs per day: 1 and smokeless tobacco second hand exposure: No alcohol intake: never substance use type: denies use current occupational status: other Travel in the last 8 weeks: Inside the [place] household members: spouse and family housing: house number of children: 2 current occupational exposures/hazards: No caffeine: Yes Review of Systems Review of Systems Review of systems:: pertinent systems reviewed and negative unless documented below Constitutional Constitutional: Reports system reviewed and no additional complaints, except as documented and Reports headache(s) Eyes Eyes: Reports system reviewed and no additional complaints, except as documented ENT Ears, Nose, Mouth, and Throat: Reports system reviewed and no additional complaints, except as documented and Reports headache(s) *Cardiovascular Cardiovascular: Reports system reviewed and no additional complaints, except as documented, Reports as per HPI, Reports chest pain, Reports chest pain at rest, Reports chest pain with activity, Reports diaphoresis, Reports dyspnea, Reports dyspnea on exertion, Reports lightheadedness and Reports radiating jaw, neck or arm pain *Respiratory Respiratory: Reports system reviewed and no additional complaints, except as documented, Reports dyspnea and Reports dyspnea on exertion *Gastrointestinal Gastrointestinal: Reports system reviewed and no additional complaints, except as documented and Reports nausea *Genitourinary Genitourinary: Reports system reviewed and no additional complaints, except as documented *Musculoskeletal Musculoskeletal: Reports system reviewed and no additional complaints, except as documented and Reports numbness (Left arm) Integumentary/Breasts Skin/Breast: Reports system reviewed and no additional complaints, except as documented *Neurologic Neurologic: Reports system reviewed and no additional complaints, except as documented, Reports headache(s) and Reports numbness (Left arm) Psychiatric Psychiatric: Reports system reviewed and no additional complaints, except as documented Endocrine Endocrine: Reports system reviewed and no additional complaints, except as documented Hematologic/Lymph
--- NOTE | 2022-05-08 10:45 | PC.NURSE ---
VASCULAR LAB NOTIFIED OF ECHO ORDER
--- NOTE | 2022-05-08 10:52 | PC.NURSE ---
ECHO AT BEDSIDE
--- NOTE | 2022-05-08 11:02 | PC.NURSE ---
Nyla Brown rounded on pts room
--- NOTE | 2022-05-08 13:00 | PC.NURSE ---
ROUNDED ON PT AT THIS TIME, RESTING WITH EYES CLOSED, ROOM DARKENED. NO NEEDS AT THIS TIME. UPDATED ON POC
[2022-05-08 13:14] LABS: Troponin I < 0.01 ng/ml (0.00-0.034)
== END 2022-05-08 13:46 | disposition home or self-care (01) ==
PROVIDERS: Emergency Provider Emergency Medicine; PCP Family Medicine
DX: R07.89 Other chest pain (principal); I10 Essential (primary) hypertension; F41.1 Generalized anxiety disorder; F33.9 Major depressive disorder, recurrent, unspecified; I47.1 Supraventricular tachycardia; R06.02 Shortness of breath; Z95.0 Presence of cardiac pacemaker; Z79.899 Other long term (current) drug therapy
CPT/HCPCS: 36415; 71046; 80048; 84484; 85025; 93005; 93306; 99285

== ENCOUNTER → 2022-05-10 11:22 | Outpatient (CLI) | payer OTHER, SELFPAY ==
--- NOTE | 2022-05-10 | CA_ITS ---
APPROVED REPORT Exam: Pharmacologic Technologist: Ita Gallego, Ht: 5 ft 11 in Wt: 190 lbs BSA: 2.06 m2 HR: 60 bpm BP: 171/98 mmHg Rhythm: NSR, normal Medical History Medications: Omeprazole,,,,, Alprazolam,,,,, Cardiac Risk Factors: HTN, Smoking Stress Test Details Test: LEXISCAN HR Resting HR: 60 bpm Max Heart Rate (APMHR): 171.041000 bpm Max HR Achieved: 103 bpm Target HR (85% APMHR): 145.670981 bpm % of APMHR: 60.23 Recovery HR: 68 bpm BP Resting BP: 171/98 mmHg Max BP: 176/83 mmHg Recovery BP: 163.0/92.0 mmHg ECG Resting ECG: NSR, normal Clinical Exercise duration: 04:06 min Highest Stage Achieved: Stress ECG Conclusion During lexiscan mild SOA and stomach discomfort. PVCs and a run of vent. bigeminy. Nonspecific T wave changes. Unremarkable lexiscan stress. Myoview images reported separately. Test Summary RECOVERY 03:18 . . 78 . 163/ 92 . . REST 06:18 . . 60 . 171/ 98 . . Stage 1 01:00 . . 82 . . . . Stage 2 01:00 . . 89 . 168/ 86 . . Stage 3 01:00 . . 100 . . . . Stage 4 01:00 . . 68 . 176/ 83 . . Stage 4 01:06 . . 68 . 176/ 83 . Stop exercise at 04:06 RECOVERY 01:00 . . 67 . 159/ 87 . . RECOVERY 02:00 . . 68 . 159/ 87 . . RECOVERY 03:00 . . 63 . 163/ 92 . . RECOVERY 03:18 . . 78 . 163/ 92 . . Electronically signed by : Chris Madsen MD 05/11/2022 10:49:54
--- NOTE | 2022-05-10 11:35 | NM_ITS ---
APPROVED REPORT Exam: Nuclear Stress Test Indication: HTN, TOB USE, FM HX, C.P., SOB, PALPITATIONS, SYNCOPE, FATIGUE, ABLATION , PACE MAKER Patient Location: Outpatient Stress Tech: Ita Gallego [place] Tech:Leticia Alexandra, BHAVIN RT(R)(N) Ht: 5 ft 11 in Wt: 190 lbs HR: 60 bpm BP: 171/98 mmHg BSA: 2.06 m2 TID: 1.04 BMI: 26.4 History: HTN, TOB USE, FM HX, C.P., SOB, PALPITATIONS, SYNCOPE, FATIGUE, ABLATION , PACE MAKER Procedure: Patient received a 0.4 mg of intravenous Lexiscan, resting heart rate 60 bpm, resting blood pressure 171/98 mmHg, with Lexiscan maximum heart rate achived was 100 bpm which is Less than 85 % of the maximum predicted heart rate and blood pressure was 176/83 mmHg. With Lexiscan, patient denied any complaint of chest pain. Electrocardiogram Resting electrocardiogram shows sinus rhythm, with Lexiscan there is less than 1.[address] segment depression noted from the baseline EKG. The EKG portion of the Lexiscan is nondiagnostic. Frequent premature ventricular complexes were present. Cardiac Stress and Resting SPECT Images: Cardiac Stress and Resting SPECT images were obtained using technetium 99m Myoview 30.5 mCi stress and 10.68 mCi at rest. Gated SPECT analysis of segmental wall motion and calculation of the ejection fraction also done. Cardiac stress and resting SPECT images show uniform myocardial activity without segmental perfusion abnormality, computer derived ejection fraction is 43% with no regional wall motion abnormality, however during the acquisition of this study frequent premature ventricular complexes are present which may underestimate the ejection fraction by gated SPECT. Right ventricle is mildly enlarged with normal contractility. Conclusion: 1. The EKG portion of the Lexiscan is nondiagnostic. 2. No scintigraphic evidence of reversible ischemia seen, computer derived ejection fraction is 43% with no regional wall motion abnormality, however frequent ectopic beats were present throughout the study which may underestimate the ejection fraction by gated SPECT. Right ventricle is mildly enlarged with normal contractility. Electronically signed by : Chris Madsen MD 05/11/2022 10:58:43
== END ==
PROVIDERS: PCP Family Medicine; Visit Provider Nurse Practitioner Family
DX: R07.89 Other chest pain (principal)
CPT/HCPCS: 78452; 93017; A9502; J2785

== ENCOUNTER 2022-06-11 09:47 | Emergency (ER) | payer OTHER, SELFPAY ==
[2022-06-11 11:15] VITALS: BP 139/73; PULSE 67; RESP 19; TEMP 36.5; O2SAT 100; BMI 26.9
--- NOTE | 2022-06-11 11:27 | XR_ITS ---
FINAL REPORT CLINICAL HISTORY: PAIN/INJURY- using chainsaw felt pop and pain FINDINGS: LEFT SHOULDER 3 views of the left shoulder were obtained. There is no acute fracture or dislocation. There is mild AC joint degenerative change. A left subclavian pacemaker is in place. Soft tissues are unremarkable. IMPRESSION: No acute bony abnormality. Reviewed, Interpreted and Dictated by Steven Jones III, MD Transcribed by Maddie Acuna Authenticated and . [facility]
--- NOTE | 2022-06-11 11:27 | EXP.UTC ---
Discharge Plan Disposition Patient Disposition: Home, Self-Care Condition: Good Prescriptions Prescriptions: New methocarbamol 500 mg tablet 500 mg PO TID PRN (Reason: muscle spasm) Qty: 15 0RF methylprednisolone [Medrol (Tucker)] 4 mg tablets,dose pack See Rx Instructions .Route .COMPLEX 6 Days Qty: 21 0RF Rx Instructions: taper pack; No Action alprazolam [Xanax] 1 mg tablet 1 mg PO QID Label Comments: previously given before seeing tru meredith 02-06-19 vortioxetine 20 mg tablet 20 mg PO DAILY Qty: 90 1RF bisoprolol fumarate 10 mg tablet 10 mg PO DAILY valsartan 160 mg tablet 160 mg PO DAILY Referrals Follow up/Referrals: aJvier Mera MD [Primary Care Provider] - See instructions Moris Salter JR, MD [Physician] - See instructions (Call office for appointment) Activity Restrictions/Add. Instructions Additional Instructions/Restrictions: *RICE, Rest the extremity, Ice 15-20 minutes 3-4 times daily, Compress- wear the esther wrap as discussed as much as possible to help reduce swelling and pain, Elevate the extremity when at rest *sling is for support and help control swelling, use it except in the shower. Be sure that is not to tight but not to loose either *Elevate when resting? *Ibuprofen 600-800mg every 6-8 hours as needed for pain an inflammation if your Doctor has said you can take it. If need something more can take Tylenol in between doses of Ibuprofen to help Call Orthopedic office for appointment Clinical Impressions Clinical Impression: Left shoulder strain Qualifiers: Encounter type: initial encounter Qualified Code(s): S46.912A - Strain of unspecified muscle, fascia and tendon at shoulder and upper arm level, left arm, initial encounter Instructions Patient Instructions: How to Use a Sling, How To Perform RICE (Rest, Ice, Compress, Elevate) Discharge ED Provider: Teresa Singh [facility] General Stated complaint: left shoulder pain, no accident Time Seen by Provider: 06/11/22 11:27 History of Present Illness Provider Complaint: Patient states that he was sitting down a heavy chain saw last Saturday when he felt a pop in his left shoulder area State that feels like it did when he tore his Rotator Cuff in the right arm States that since then he has been having pain in his shoulder with movement and unable to raise it up above his chest without pain so today he came in to get it checked Denies CP Related Data Home Medications Medication Instructions Recorded Confirmed alprazolam 1 mg tablet (Xanax) 1 mg PO QID Anxiety 02/06/19 06/11/22 bisoprolol fumarate 10 mg tablet 10 mg PO DAILY HEART RATE 06/11/22 06/11/22 valsartan 160 mg tablet 160 mg PO DAILY Hypertension 06/11/22 06/11/22 Previous Rx's Medication Instructions Recorded vortioxetine 20 mg tablet 20 mg PO DAILY Depression #90 tabs 06/08/22 methocarbamol 500 mg tablet 500 mg PO TID PRN muscle spasm #15 06/11/22 tabs methylprednisolone 4 mg tablets in See Rx Instructions .Route 06/11/22 a dose pack (Medrol (Tucker)) .COMPLEX 6 days #21 tabs Allergies Allergy/AdvReac Type Severity Reaction Status Date / Time Tricyclic Compounds Allergy Unknown Verified 05/28/22 14:33 [TRICYCLIC COMPOUNDS] metoprolol AdvReac fatigue Verified 05/28/22 14:33 PFSH [facility] Disclaimer: The information contained in this section may have been updated after the patient was seen, as this information can be updated by other users. Medical History Cardiac pacemaker in situ Chest pain Generalized anxiety disorder Hypertension Major depressive disorder Palpitations Shortness of Breath SVT (supraventricular tachycardia) Social History (Updated 06/11/22 @ 11:27 by Helen Morel RN) Smoking Status: Current every day smoker tobacco type: cigarettes packs per day: 1 and smokeless tobacco second hand exposure: No alcohol intake: current sub
[2022-06-11 11:50] VITALS: BP 139/73; PULSE 67; RESP 19; TEMP 36.5; O2SAT 100
== END 2022-06-11 12:53 | disposition home or self-care (01) ==
PROVIDERS: Emergency Provider Nurse Practitioner; PCP Family Medicine
DX: S46.912A Strain of unspecified muscle, fascia and tendon at shoulder and upper arm level, left arm, initial encounter (principal)
CPT/HCPCS: 73030; 99212; G0463

== ENCOUNTER → 2022-07-10 10:38 | Outpatient (CLI) | payer OTHER, SELFPAY | PROVIDERS: PCP Family Medicine; Visit Provider Nurse Practitioner | DX: G47.30 Sleep apnea, unspecified (principal); R06.83 Snoring | CPT/HCPCS: 95806; G0399 ==

== ENCOUNTER 2022-07-29 12:24 | Emergency (ER) | payer OTHER, SELFPAY ==
[2022-07-29] VITALS (10 sets, daily range): BP systolic 126–184; BP diastolic 71–110; PULSE 60–79; RESP 15–20; TEMP 36.6–36.8; O2SAT 96–99; BMI 26.4
--- NOTE | 2022-07-29 12:40 | CT_ITS ---
PROCEDURE INFORMATION: Exam: CT Head Without Contrast Exam date and time: 07/29/2022 12:53 PM Age: 51 years old Clinical indication: Pain; Headache; Migraine; Aura effect not specified; Additional info: Severe headache, left sided weakness, resolved dys TECHNIQUE: Imaging protocol: Computed tomography of the head without contrast. Radiation optimization: All CT scans at this facility use at least one of these dose optimization techniques: automated exposure control; mA and/or kV adjustment per patient size (includes targeted exams where dose is matched to clinical indication); or iterative reconstruction. COMPARISON: HDO CT HEAD W/O CONTRAST 04/11/2017 10:11 AM FINDINGS: Brain: No evidence of acute parenchymal hemorrhage, extra-axial collection or local regional mass effect. Cerebral ventricles: The ventricles, sulci and cisterns are normal in size and configuration. No hydrocephalus or midline structure shift Pituitary gland and sella: Sellar/parasellar structures, orbits and craniocervical junction are unremarkable Paranasal sinuses: Mucosal thickening noted throughout the paranasal sinuses. Mastoid air cells: Visualized mastoid air cells are well aerated. Bones/joints: No calvarial fracture Soft tissues: Unremarkable. IMPRESSION: 1. No acute intracranial abnormality. No calvarial fracture. If neurological symptoms persist brain MRI can be obtained for better evaluation 2. Infectious/inflammatory sinusitis
--- NOTE | 2022-07-29 12:54 | PC.NURSE ---
Pt to CT for scan, provider at bedside
--- NOTE | 2022-07-29 12:57 | CT_ITS ---
PROCEDURE INFORMATION: Exam: CTA Neck With Contrast Exam date and time: 07/29/2022 1:45 PM Age: 51 years old Clinical indication: Pain; Weakness; Headache; Additional info: L sided weakness, speech difficulty TECHNIQUE: Imaging protocol: Computed tomographic angiography of the neck with contrast. 3D rendering (Not supervised by radiologist): MIP and/or 3D reconstructed images were created by the technologist. Radiation optimization: All CT scans at this facility use at least one of these dose optimization techniques: automated exposure control; mA and/or kV adjustment per patient size (includes targeted exams where dose is matched to clinical indication); or iterative reconstruction. Contrast material: ISOVUE 370; Contrast volume: 100 ml; Contrast route: INTRAVENOUS (IV); COMPARISON: CT HEAD/BRAIN WO CON 07/29/2022 12:53 PM FINDINGS: Right common carotid artery: No stenosis. No dissection or occlusion. Right internal carotid artery: No stenosis of the extracranial segment. No dissection or occlusion. Right external carotid artery: No occlusion or stenosis of the origin. Left common carotid artery: No stenosis. No dissection or occlusion. Left internal carotid artery: No stenosis of the extracranial segment. No dissection or occlusion. Left external carotid artery: No occlusion or stenosis of the origin. Right vertebral artery: There is a non dominant right vertebral artery with no evidence of dissection or stenosis. Left vertebral artery: There is a dominant left vertebral artery with no evidence of dissection or stenosis. Thyroid: The thyroid appears normal. Soft tissues: Normal. No significant soft tissue swelling. Bones/joints: No acute fracture. Lungs: The visualized portions of the lung apices are normal. IMPRESSION: 1. There is no evidence of brachiocephalic arterial pathology. 2. There is a dominant left vertebral artery with no evidence of dissection or stenosis. 3. There is a non dominant right vertebral artery with no evidence of dissection or stenosis. REFERENCES: NASCET CRITERIA. The degree of stenosis in the cervical segment of the internal carotid artery is based on NASCET criteria. Normal is no stenosis. Mild is less than 50% stenosis. Moderate is 50-69% stenosis. Severe is 70% to 99% stenosis. Total occlusion is no detectable patent lumen.
--- NOTE | 2022-07-29 12:57 | CT_ITS ---
PROCEDURE INFORMATION: Exam: CTA Head With Contrast, Arteriography Exam date and time: 07/29/2022 1:45 PM Age: 51 years old Clinical indication: Weakness; Additional info: L sided weakness, speech difficulty TECHNIQUE: Imaging protocol: Computed tomographic angiography of the head with contrast. Exam focused on the arteries. 3D rendering (Not supervised by radiologist): MIP and/or 3D reconstructed images were created by the technologist. Radiation optimization: All CT scans at this facility use at least one of these dose optimization techniques: automated exposure control; mA and/or kV adjustment per patient size (includes targeted exams where dose is matched to clinical indication); or iterative reconstruction. Contrast material: ISOVUE 370; Contrast volume: 100 ml; Contrast route: INTRAVENOUS (IV); COMPARISON: CT HEAD/BRAIN WO CON 07/29/2022 12:53 PM FINDINGS: ANTERIOR CIRCULATION: Right internal carotid artery: Intracranial segment is patent with no significant stenosis. No aneurysm. Right middle cerebral artery: No occlusion or significant stenosis. No aneurysm. Right anterior cerebral artery: No occlusion or significant stenosis. No aneurysm. Left internal carotid artery: Intracranial segment is patent with no significant stenosis. No aneurysm. Left middle cerebral artery: No occlusion or significant stenosis. No aneurysm. Left anterior cerebral artery: No occlusion or significant stenosis. No aneurysm. POSTERIOR CIRCULATION: Right vertebral artery: No occlusion or significant stenosis. No aneurysm. Left vertebral artery: No occlusion or significant stenosis. No aneurysm. Basilar artery: No occlusion or significant stenosis. No aneurysm. Right posterior cerebral artery: No occlusion or significant stenosis. No aneurysm. Left posterior cerebral artery: No occlusion or significant stenosis. No aneurysm. Veins: There is no evidence of venous sinus thrombosis. Brain: There is no evidence of intracranial large vessel stenosis or occlusion. Cerebral ventricles: No ventriculomegaly. Bones/joints: Unremarkable. No acute fracture. Soft tissues: Unremarkable. IMPRESSION: 1. There is no evidence of intracranial large vessel stenosis or occlusion. 2. There is no evidence of venous sinus thrombosis.
--- NOTE | 2022-07-29 13:01 | XR_ITS ---
PROCEDURE INFORMATION: Exam: XR Chest Exam date and time: 07/29/2022 1:21 PM Age: 51 years old Clinical indication: Other: Stroke symptons, left side weakness, headache for 4 days. ; Additional info: Stroke symptoms TECHNIQUE: Imaging protocol: Radiologic exam of the chest. Views: 1 view. COMPARISON: CR XR CHEST 2V 05/08/2022 9:03 AM FINDINGS: Tubes, catheters and devices: Clinton sutures projected over the right humeral head. A pulse generator device is present, and its leads are in appropriate position. Lungs: No evidence of pneumonia or interstitial edema. Pleural spaces: Unremarkable. No pleural effusion. No pneumothorax. Heart/Mediastinum: Unremarkable. No cardiomegaly. Bones/joints: Unremarkable. IMPRESSION: No evidence of pneumonia or interstitial edema.
--- NOTE | 2022-07-29 13:04 | HMH.EDGENADL ---
Discharge Plan Disposition Patient Disposition: Home, Self-Care Condition: Good Prescriptions Prescriptions: No Action alprazolam [Xanax] 1 mg tablet 1 mg PO QID Label Comments: previously given before seeing tru meredith 02-06-19 metoprolol succinate 25 mg tablet extended release 24 hr 25 mg PO ONCE omeprazole 20 mg capsule,delayed release(DR/EC) 20 mg PO DAILY zolpidem 5 mg tablet 5 mg PO HS MDD 10 mg PRN (Reason: insomnia) Qty: 2 0RF Rx Instructions: 5 mg po qhs prn for sleep test. Do not drive if drowsiness or sleepiness present. vortioxetine 20 mg tablet 20 mg PO DAILY Qty: 90 1RF valsartan 160 mg tablet 160 mg PO DAILY methocarbamol 500 mg tablet 500 mg PO TID PRN (Reason: muscle spasm) Qty: 15 0RF Referrals Follow up/Referrals: Javier Mera MD [Primary Care Provider] - See instructions Activity Restrictions/Add. Instructions Additional Instructions/Restrictions: Follow-up with Dr. Mera, call tomorrow morning to make an appointment to be seen this week. Return emergency department if symptoms worsen. Aspirin, low-dose, 81 mg/day. Clinical Impressions Clinical Impression: Headache, Left-sided weakness Instructions Patient Instructions: DI for Headache Discharge ED Provider: Zach Bell Adult [facility] General Chief complaint: Headache Stated complaint: Headache LT side body weakness Time Seen by Provider: 07/29/22 12:45 Mode of Arrival: Ambulatory Source of Information: Patient Limitations: No Limitations Description of Symptoms (Recalled from ER Triage Doc. by RN): Pt reports sudden onset of severe headache, dysphasia, left sided weakness, last Pm 2300; speech improved this am, but still weak UE and LE, pmh migraines and reports feels similar, GCS 15, perrl at this time History of Present Illness HPI narrative: Patient states he thinks he might have had a mini stroke. States that he has had a headache for 4 days. Last night about 11 PM he developed difficulty speaking and left upper and lower extremity weakness and generalized shakiness. He has a history of migraines but has never had problems with his speech or with weakness. Denies visual disturbance. Able to walk without difficulty. He is on anxiety medication, states he last took it this morning. States he does not currently feel anxious. Related Data Home Medications Medication Instructions Recorded Confirmed alprazolam 1 mg tablet (Xanax) 1 mg PO QID Anxiety 02/06/19 07/25/22 valsartan 160 mg tablet 160 mg PO DAILY Hypertension 06/11/22 07/25/22 metoprolol succinate 25 mg 25 mg PO ONCE 07/25/22 07/25/22 tablet,extended release 24 hr omeprazole 20 mg capsule,delayed 20 mg PO DAILY 07/25/22 07/25/22 release Previous Rx's Medication Instructions Recorded vortioxetine 20 mg tablet 20 mg PO DAILY Depression #90 tabs 06/08/22 methocarbamol 500 mg tablet 500 mg PO TID PRN muscle spasm #15 06/11/22 tabs zolpidem 5 mg tablet 5 mg PO HS PRN insomnia #2 tabs 07/25/22 Allergies Allergy/AdvReac Type Severity Reaction Status Date / Time Tricyclic Compounds Allergy Unknown Verified 07/25/22 08:18 [TRICYCLIC COMPOUNDS] metoprolol AdvReac fatigue Verified 07/25/22 08:18 [facility] Disclaimer: The information contained in this section may have been updated after the patient was seen, as this information can be updated by other users. Medical History Cardiac pacemaker in situ Chest pain Generalized anxiety disorder Hypertension Major depressive disorder Palpitations Shortness of Breath SVT (supraventricular tachycardia) Social History (Updated 07/25/22 @ 08:23 by Tru Cason) Smoking Status: Current every day smoker tobacco type: e-cigarettes and smokeless tobacco second hand exposure: No alcohol intake: current substance use type: denies use current occupational status: employed [employer]
[2022-07-29 13:32] LABS: Basophils # 0.1 K/mm3 (0-0.2); Basophils % 2.5 % (0.1-2.0); Eosinophils # 0.2 K/mm3 (0.0-0.4); Eosinophils % 3.4 % (0.1-12.0); Hematocrit 41.1 % (42.0-52.0); Lymphocytes # 1.1 K/mm3 (0.7-4.5); Lymphocytes % 22.5 % (10-50); Mean Corpuscular HGB Conc 34.1 g/dL (31.8-35.4); Mean Corpuscular Hemoglobin 31.1 pg (27.0-31.2); Mean Corpuscular Volume 91.2 fl (80-94); Mean Platelet Volume 8.2 fl (7.4-10.4); Monocytes # 0.3 K/mm3 (0.1-1.0); Monocytes % 7.1 % (1.7-9.3); Neutrophils % 64.4 % (37.0-80.0); Platelet Count 311 K/mm3 (142-424); Red Cell Distribution Width 13.9 % (11.5-17.5); White Blood Count 4.6 K/mm3 (4.8-10.8)
[2022-07-29 13:37] LABS: Activated Partial Thrombo Time 25.6 seconds (22.8-30.6); Alanine Aminotransferase 90 U/L (12-78); Albumin Level 4.9 g/dl (3.5-5.0); Albumin/Globulin Ratio 1.5 (1.1-1.8); Alkaline Phosphatase 122 U/L (38-126); Anion Gap 13.3 mEq/L (5-15); Aspartate Amino Transferase 61 U/L (17-59); Bilirubin,Total 0.4 mg/dl (0.2-1.3); Blood Urea Nitrogen 13 mg/dl (9-20); Calcium 9.1 mg/dl (8.4-10.2); Carbon Dioxide 27 mmol/L (22.0-30.0); Chloride 104 mmol/L (98-107); Creatinine Clearance Estimated 109 mL/min (50-200); Estimated Glomerular Filt Rate 79 ml/min (>60); GFR (African American) 96 ML/MIN (>60); Globulin 3.2 g/dL (1.3-3.2); Glucose 95 mg/dl (74-100); INR 0.98 (0.9-1.1); Potassium 4.3 mmoL/L (3.5-5.1); Prothrombin Time 10.6 seconds (10.1-12.5); Sodium 140 mmol/L (136-145); Total Protein,Serum 8.1 g/dl (6.3-8.2)
--- NOTE | 2022-07-29 13:37 | PC.NURSE ---
NIHSS conducted at bedside, result score of 2 for LLE drift and LLE sensation deficit for sharp and dull stimuli in later aspect/dermatome, however pt has history of lumbar surgery in setting of DDD; Ed physician advised
[2022-07-29 13:51] LABS: Troponin I < 0.01 ng/ml (0.00-0.034)
[2022-07-29 14:29] LABS: Microscopic, Urine URINE MICROSCOPIC (MICROSCOPIC)
[2022-07-29 14:53] LABS: Ethyl Alcohol 15 mg/dl (0-10)
[2022-07-29 14:54] LABS: Appearance,Urine CLEAR (Clear); Bilirubin,Urine Negative (Negative); Blood, Urine Negative (Negative); Color,Urine YELLOW (Yellow); Glucose,Urine (UA) Negative (Negative); Ketones,Urine Negative (Negative); Leukocyte Esterase,Urine Negative (Negative); Nitrate,Urine Negative (Negative); Protein,Urine Negative (Negative); Urobilinogen,Urine 0.2 EU/dl (0.2)
[2022-07-29 15:03] LABS: Squamous Epithelial Cell,Urine Occasional #/hpf (0-5)
[2022-07-29 15:04] LABS: Barbiturates Screen,Urine Negative ng/ml (<200)
[2022-07-29 15:05] LABS: Benzodiazepines Screen,Urine Positive ng/ml (<200)
[2022-07-29 15:06] LABS: Amphetamine/Metha Screen,Urine Negative ng/ml (<1000); Cocaine Screen,Urine Negative ng/ml (<300)
[2022-07-29 15:07] LABS: Methadone Screen,Urine Negative ng/ml (<300)
[2022-07-29 15:08] LABS: Cannabinoid Screen,Urine Negative ng/ml (<50); Opiate Screen,Urine Negative ng/ml (<300)
[2022-07-29 15:09] LABS: Phencyclidine Screen,Urine Negative ng/ml (<25)
[2022-07-29 17:14] LABS: Troponin I < 0.01 ng/ml (0.00-0.034)
== END 2022-07-29 17:22 | disposition home or self-care (01) ==
PROVIDERS: Emergency Provider Emergency Medicine; PCP Family Medicine
DX: R51.9 Headache, unspecified (principal); R53.1 Weakness; Z95.0 Presence of cardiac pacemaker; F41.1 Generalized anxiety disorder; I10 Essential (primary) hypertension; Z82.49 Family history of ischemic heart disease and other diseases of the circulatory system; F17.210 Nicotine dependence, cigarettes, uncomplicated; U07.0 Vaping-related disorder; F17.220 Nicotine dependence, chewing tobacco, uncomplicated
CPT/HCPCS: 36415; 70450; 70496; 70498; 71045; 80053; 80305; 81001; 84484; 85025; 85610; 85730; 96374; 96375; 99285; Q9967

== ENCOUNTER → 2022-10-18 19:46 | Outpatient (CLI) | payer OTHER, SELFPAY | PROVIDERS: PCP Family Medicine; Visit Provider Specialist | DX: G47.30 Sleep apnea, unspecified (principal); R40.0 Somnolence; I47.1 Supraventricular tachycardia | CPT/HCPCS: 95810 ==

== ENCOUNTER → 2022-10-30 13:31 | Outpatient (POV) | payer OTHER, SELFPAY | PROVIDERS: Visit Provider Dermatology | DX: Z00.00 Encounter for general adult medical examination without abnormal findings (principal) ==

== ENCOUNTER → 2022-12-12 12:51 | Outpatient (CLI) | payer OTHER, SELFPAY ==
[2022-12-12 14:27] LABS: Alanine Aminotransferase 112 U/L (12-78); Albumin/Globulin Ratio 1.7 (1.1-1.8); Alkaline Phosphatase 138 U/L (38-126); Anion Gap 18.3 mEq/L (5-15); Aspartate Amino Transferase 85 U/L (17-59); Bilirubin,Total 0.4 mg/dl (0.2-1.3); Blood Urea Nitrogen 13 mg/dl (9-20); Calcium 9.7 mg/dl (8.4-10.2); Carbon Dioxide 29 mmol/L (22.0-30.0); Chloride 99 mmol/L (98-107); Estimated Glomerular Filt Rate 79 ml/min (>60); GFR (African American) 96 ML/MIN (>60); Glucose 127 mg/dl (74-100); Potassium 5.3 mmoL/L (3.5-5.1); Sodium 141 mmol/L (136-145)
[2022-12-12 14:42] LABS: Triiodothryronine (T3) Uptake 29 % (23.5-40.5)
[2022-12-12 14:56] LABS: Thyroid Stimulating Hormone 1.64 uIU/mL (0.465-4.68)
[2022-12-12 16:45] LABS: Basophils % 0.3 % (0.1-2.0); Eosinophils # 0.1 K/mm3 (0.0-0.4); Hematocrit 48.3 % (42.0-52.0); Hemoglobin 15.5 g/dL (14.1-18.0); Lymphocytes # 1.2 K/mm3 (0.7-4.5); Lymphocytes % 12.5 % (10-50); Mean Corpuscular HGB Conc 32.1 g/dL (31.8-35.4); Mean Corpuscular Hemoglobin 29.6 pg (27.0-31.2); Mean Corpuscular Volume 92.2 fl (80-94); Mean Platelet Volume 8.8 fl (7.4-10.4); Monocytes # 0.6 K/mm3 (0.1-1.0); Monocytes % 6.2 % (1.7-9.3); Neutrophils # 7.4 K/mm3 (1.8-7.8); Platelet Count 287 K/mm3 (142-424); Red Blood Count 5.23 M/mm3 (4.60-6.20); Red Cell Distribution Width 14.1 % (11.5-17.5); White Blood Count 9.3 K/mm3 (4.8-10.8)
[2022-12-12 16:59] LABS: Hemoglobin A1C 5.2 % (4.0-6.0)
[2022-12-14 10:51] LABS: Free Thyroxine Index 1.9 ug/dL (5.93-13.13); T4 (Thyroxine) 6.5 ug/dl (5.53-11.0)
[2022-12-14 14:22] LABS: Thyroid Peroxidase Antibodies 14 IU/mL (0-34)
[2022-12-19 11:17] LABS: Free Testosterone (Direct) 3.4 pg/mL (7.2-24.0); Testosterone, Total, LC/MS 148.2 ng/dL (264.0-916.0)
[2022-12-24 13:39] LABS: 1,25 Dihydroxy Vitamin D 60 pg/mL (.); 1,25-Dihydroxy, Vitamin D-2 <10 pg/mL (.); 1,25-Dihydroxy, Vitamin D-3 60 pg/mL (.)
== END ==
PROVIDERS: PCP Family Medicine; Visit Provider Nurse Practitioner Psychiatric/Mental Health
DX: Z00.00 Encounter for general adult medical examination without abnormal findings (principal); R53.83 Other fatigue; Z79.899 Other long term (current) drug therapy
CPT/HCPCS: 36415; 80053; 82652; 83036; 84436; 84443; 84479; 85025; 86376

== ENCOUNTER 2023-03-31 13:03 | Emergency (ER) | payer OTHER, SELFPAY ==
[2023-03-31 13:30] VITALS: BP 138/82; PULSE 66; RESP 18; TEMP 36.8; O2SAT 98; BMI 26.5
--- NOTE | 2023-03-31 13:51 | XR_ITS ---
PROCEDURE INFORMATION: Exam: XR Right Shoulder Exam date and time: 03/31/2023 2:12 PM Age: 52 years old Clinical indication: Pain; Shoulder; Right TECHNIQUE: Imaging protocol: Radiologic exam of the right shoulder. Views: 2 or more views. COMPARISON: CT SHOULDER RT W CON 05/19/2020 2:04 PM FINDINGS: Tubes, catheters and devices: Surgical device in the right humeral head Degenerative changes in the acromioclavicular joint and glenohumeral joint. Bones/joints: There is no evidence of acute fracture.There is no evidence of malalignment or dislocation. Soft tissues: Normal. IMPRESSION: There is no evidence of acute fracture.There is no evidence of malalignment or dislocation.
--- NOTE | 2023-03-31 13:51 | XR_ITS ---
PROCEDURE INFORMATION: Exam: XR Right Humerus Exam date and time: 03/31/2023 2:13 PM Age: 52 years old Clinical indication: Pain; Upper arm; Right TECHNIQUE: Imaging protocol: Radiologic exam of the right humerus. Views: 2 or more views. COMPARISON: CR XR SHOULDER RT MIN 2V 03/31/2023 2:12 PM FINDINGS: Tubes, catheters and devices: Surgical device in the humeral head Bones/joints: There is no evidence of acute fracture in any of the visualized osseous structures.. The glenohumeral joint is not seen on this study Soft tissues: Normal. IMPRESSION: There is no evidence of acute fracture in any of the visualized osseous structures..
--- NOTE | 2023-03-31 14:51 | EXP.UTC ---
Discharge Plan Disposition Patient Disposition: Home, Self-Care Condition: Good Prescriptions Prescriptions: New ibuprofen 800 mg tablet 800 mg PO TID PRN (Reason: pain) Qty: 30 0RF Rx Instructions: Do not start until 04/01/23. No Action alprazolam [Xanax] 1 mg tablet 1 mg PO QID Patient Comments: previously given before seeing tru harper 02-06-19 valsartan 160 mg tablet 160 mg PO DAILY Qty: 90 3RF methocarbamol 500 mg tablet 500 mg PO TID PRN (Reason: muscle spasm) Qty: 15 0RF valsartan 160 mg tablet 160 mg PO DAILY Patient Comments: TAKE 1 TABLET BY MOUTH ONCE DAILY FOR HYPERTENSION Trintellix 20 mg tablet 20 mg PO DAILY Patient Comments: TAKE 1 TABLET BY MOUTH ONCE DAILY FOR DEPRESSION Referrals Follow up/Referrals: Javier Mera MD [Primary Care Provider] - See instructions Luke Blandon DO [Staff Physician] - See instructions (right shoulder pain and immobility) Activity Restrictions/Add. Instructions Additional Instructions/Restrictions: Call Dr. Blandon on Saturday for a follow up visit. [phone] Clinical Impressions Clinical Impression: Acute pain of right shoulder Instructions Patient Instructions: DI for Chronic Pain -- Adult, DI for Shoulder Pain Discharge ED Provider: Dejah Gardner [facility] General Stated complaint: Right shoulder pain & stiffness, lack of movement Mode of Arrival: Ambulatory Source of Information: Patient Limitations: No Limitations Time Seen by Provider: 03/31/23 14:24 Description of Symptoms (Recalled from Triage Doc. by RN): Pt states that 10 days ago it popped. The pain is going in the neck down the back, and arm. He stated that if he lifts it pops. He stated that he cannot lay on it. HEENT Symptoms (Recalled from RN notes): No Resp Symptoms (Recalled from RN notes): No Skin Symptoms (Recalled from RN notes): No MS Symptoms (Recalled from RN notes): Yes Functional Status (Recalled from RN notes): n/a History of Present Illness Provider Complaint: Pt reports a long history of right shoulder issues and was advised to have surgery at one point. He states that he went to [facility] but was told that they would not do surgery until his neck was fixed. He reports that he has 5 nerves that are compressed in his neck. He states that 10 days ago his right shoulder popped and he has not been able to lift his arm above waist level. Related Data Home Medications Medication Instructions Recorded Confirmed alprazolam 1 mg tablet (Xanax) 1 mg PO QID Anxiety 02/06/19 03/31/23 valsartan 160 mg tablet 160 mg PO DAILY htn 03/31/23 03/31/23 vortioxetine 20 mg tablet 20 mg PO DAILY Depression 03/31/23 03/31/23 (Trintellix) Previous Rx's Medication Instructions Recorded methocarbamol 500 mg tablet 500 mg PO TID PRN muscle spasm #15 06/11/22 tabs valsartan 160 mg tablet 160 mg PO DAILY Hypertension #90 09/03/22 tabs ibuprofen 800 mg tablet 800 mg PO TID PRN pain #30 tabs 03/31/23 Allergies Allergy/AdvReac Type Severity Reaction Status Date / Time Tricyclic Antidepressants Allergy Unknown Verified 03/31/23 13:54 and Tricy [TRICYCLIC COMPOUNDS] metoprolol AdvReac fatigue Verified 03/31/23 13:54 Worker's Comp Is this a Worker's Comp case?: No [facility] Disclaimer: The information contained in this section may have been updated after the patient was seen, as this information can be updated by other users. Medical History (Updated 03/31/23 @ 15:07 by Dejah Gardner APRN) Abnormal electrocardiogram [ECG] [EKG] Cardiac pacemaker in situ Chest pain Generalized anxiety disorder Hypertension Major depressive disorder HARRISON (obstructive sleep apnea) Palpitations Shortness of Breath SVT (supraventricular tachycardia) Social History Smoking Status: Current every day smoker tobacco type: e-cigarettes and smokeless tobacco [place]
[2023-03-31 15:29] VITALS: BP 138/82; PULSE 66; RESP 18; TEMP 36.8; O2SAT 98
== END 2023-03-31 15:29 | disposition home or self-care (01) ==
PROVIDERS: Emergency Provider Nurse Practitioner Family; PCP Family Medicine
DX: M25.511 Pain in right shoulder (principal); F17.290 Nicotine dependence, other tobacco product, uncomplicated; I10 Essential (primary) hypertension; F41.1 Generalized anxiety disorder; F33.9 Major depressive disorder, recurrent, unspecified
CPT/HCPCS: 73030; 73060; 96372; 99212; 99214; G0463

== ENCOUNTER → 2023-04-16 08:55 | Outpatient (CLI) | payer OTHER, SELFPAY ==
--- NOTE | 2023-04-16 08:56 | IR_ITS ---
FINAL REPORT CLINICAL HISTORY: Rt Shoulder pain..prior sugery 98.67 dap 1.5 fluoro time 7cc isovue 2cc lido 11cc sodium cholride injected into rt shoulder joint FINDINGS: Right shoulder injection for CT arthrogram Attending radiologist: Dr. Jones Physician Supervisor Quality Control: Cheikh Dykes PA-C HISTORY: . Right shoulder pain. PROCEDURE: After informed consent was obtained, a time-out was performed. Utilizing local anesthesia and sterile technique, with direct fluoroscopic guidance, access to the joint was obtained . A small amount of contrast was injected to confirm needle tip location. Additional dilute contrast was injected. IMPRESSION: Status post injection for CT arthrogram without immediate complication. Please see CT report. Fluoro time: 1.5 minutes DAP: 98.67 uGy.m2 Films reviewed , interpreted and dictated by Dr. Jones. Transcribed by Cheikh Dykes PA-C. Reviewed, Interpreted and Dictated by Steven Jones III, MD Transcribed by SCOT Ferrer Authenticated and [facility]
--- NOTE | 2023-04-16 10:29 | CT_ITS ---
FINAL REPORT CLINICAL HISTORY: Rt Shoulder Pain Rt shoulder arthrogram FINDINGS: CT UPPER EXTREMITY W/CONTRAST Axial CT images were performed of the right shoulder at through the intra-articular injection of contrast. Coronal and sagittal reformatted images were submitted. This study was performed with techniques to keep radiation doses as low as reasonably achievable, (ALARA). Individualized dose reduction techniques using automated exposure control or adjustment of mA and/or kV according to the patient's size were employed. Postoperative changes are seen in the anterior humeral head. There is no acute fracture. There is no evidence of contrast leakage to the bursa. The rotator cuff tendons are intact. There is a full-thickness cartilage defect of the posterior glenoid. Contrast at the base of the superior labrum favors a sublabral foramen over a tear. There is no definite labral tear. IMPRESSION: Postoperative change of the anterior humeral head. Full-thickness cartilage defect of the posterior glenoid. Contrast at the base of the superior labrum favors a sublabral foramen over labral tear. Reviewed, Interpreted and Dictated by Steven Jones III, MD Transcribed by Charli Acosta Authenticated and [facility]
== END ==
PROVIDERS: PCP Family Medicine; Visit Provider Orthopaedic Surgery
DX: M25.511 Pain in right shoulder (principal)
CPT/HCPCS: 73040; 73201; Q9967

== ENCOUNTER 2023-09-16 08:41 | Outpatient (POV) | payer OTHER, SELFPAY ==
--- NOTE | 2023-09-16 09:01 | A.OFFVIS_ITS ---
HPI Data of Consult Patient: new to practice Consult date: 09/16/23 Requesting Physician: Mellissa Blandon APRN Primary Care Provider: Javier Mera MD Consult Narrative Reason for consult: Neck pain, right shoulder pain, right arm pain, headache History of present illness: Mr. Purdy is a 52 year old male who presents today as a new patient. He is a referral from Dr. Lawson's office. Today he rates his pain a 6 out of 10. Patient states he has pain throughout his neck that does radiate to his right shoulder and will go down into his right hand and fingers causing it to fall asleep. He does describe this as an aching, throbbing sensation with occasional sharp shooting pains and numbness and tingling. He states this is gone on for years and progressively worsened. Patient states that he did have 2 shoulder surgeries in the past with his last one about 12 years ago. Patient states that he does have limited range of motion in this joint. He states he recently has saw Dr. Blandon here at [facility] who did do a intra-articular injection and lasted about a week to 10 days. Patient states he has had imaging done at Dr. Lawson's office there at regarding his cervical spine. He states that there were multiple bulging disc however that the doctor did not recommend neck surgery. Patient has tried Tylenol and ibuprofen along with heat and ice and topicals with minimal relief. Patient has had physical therapy with no change. Patient was also prescribed pain medication in the past however states that it made him stay awake so he discontinued this medication. He is prescribed alprazolam From an outside provider. His Santosh has been reviewed and is appropriate. CC: Mellissa Blandon APRN [facility] Disclaimer: The information contained in this section may have been updated after the patient was seen, as this information can be updated by other users. Medical History Abnormal electrocardiogram [ECG] [EKG] Cardiac pacemaker in situ Chest pain Generalized anxiety disorder Hypertension Major depressive disorder HARRISON (obstructive sleep apnea) Palpitations Shortness of Breath SVT (supraventricular tachycardia) Social History Smoking Status: Current every day smoker tobacco type: e-cigarettes and smokeless tobacco second hand exposure: No alcohol intake: current substance use type: denies use current occupational status: employed Travel in the last 8 weeks: None household members: spouse and family housing: house marital status: number of children: 2 current occupational exposures/hazards: No caffeine: Yes Review of Systems Review of Systems Review of systems:: pertinent systems reviewed and negative unless documented below Review of systems (narrative): Review of Systems: General: No recent weight changes, no fever, no sleep disturbances Respiratory: No cough, no shortness of air, no recurring pulmonary infections Cardiovascular/peripheral vascular: No chest pain, no palpitations, no edema, no shortness of breath Gastrointestinal: No new onset incontinence, normal bowel movements reported Genitourinary: No new onset incontinence Musculoskeletal: Neck pain, right shoulder pain, right arm pain, headache Psychiatric: [Normal mood/affect] Neurological: [Denies weakness in extremities], [denies balance issues] Meds Home Medications and Allergies Home Medications Medication Instructions Recorded Confirmed Type alprazolam 1 mg tablet (Xanax) 1 mg PO QID Anxiety 02/06/19 09/05/23 History methocarbamol 500 mg tablet 500 mg PO TID PRN muscle spasm #15 06/11/22 09/05/23 Rx tabs ibuprofen 800 mg tablet 800 mg PO TID PRN pain #30 tabs 03/31/23 09/05/23 Rx vortioxetine 20 mg tablet 20 mg PO DAILY Depression #30 tabs 06/18/23 09/05/23 Rx (Trintellix) valsartan 160 mg tablet 160 mg PO DAILY Hypertension #90 07/04/23 09/05/23 Rx tabs cyclobenzaprine 10 mg tablet mg PO 09/05/23 09/05/23 History New Prescriptions to Start Prescriptions: Allergies Allergy/AdvReac Type Severity Reaction Status Date / Time Tricyclic Antidepressants Allergy Unknown Verified 09/05/23 09:13 and Tricy [TRICYCLIC COMPOUNDS] metoprolol AdvReac fatigue Verified 09/05/23 09:13 Objective Narrative: Physical Exam: General: Alert and oriented x3, no acute distress, pleasant and cooperative Lungs: Respirations even and unlabored, symmetrical chest expansion Eyes: PERRL Musculoskeletal: Flexion and extension of cervical [spine] somewhat guarded secondary to pain, [antalgic gait noted] Neurological: Speech clear, no gross sensory deficit Additional findings Additional findings: FINDINGS: CT UPPER EXTREMITY W/CONTRAST Axial CT images were performed of the right shoulder at through the intra-articular injection of contrast. Coronal and sagittal reformatted images were submitted. This study was performed with techniques to keep radiation doses as low as reasonably achievable, (ALARA). Individualized dose reduction techniques using automated exposure control or adjustment of mA and/or kV according to the patient's size were employed. Postoperative changes are seen in the anterior humeral head. There is no acute fracture. There is no evidence of contrast leakage to the bursa. The rotator cuff tendons are intact. There is a full-thickness cartilage defect of the posterior glenoid. Contrast at the base of the superior labrum favors a sublabral foramen over a tear. There is no definite labral tear. IMPRESSION: Postoperative change of the anterior humeral head. Full-thickness cartilage defect of the posterior glenoid. Contrast at the base of the superior labrum favors a sublabral foramen over labral tear. Reviewed, Interpreted and Dictated by Steven Jones III, MD Transcribed by Charli Acosta Authenticated and [facility] cervical spine C2-3: Minimal disc bulge and facet arthropathy. No significant stenosis or neuroforaminal narrowing C3-C4: Disc bulge and endplate osteophytes. Facet arthropathy and uncovertebral hypertrophy. Mild spinal canal stenosis. Mild contouring of the ventral cord and mild bilateral neuroforaminal stenosis. C4-C5: Minimal disc bulge, facet arthropathy and uncovertebral hypertrophy. No significant canal stenosis or neuroforaminal stenosis C5-C6: Minimal disc bulge, facet arthropathy and uncovertebral hypertrophy. Mild spinal canal stenosis with bilateral neuroforaminal stenosis C6-C7: Minimal disc bulge. Mild facet arthropathy. No significant canal stenosis or neuroforaminal narrowing C7-T1: Mild facet arthropathy no significant spinal canal or neuroforaminal stenosis Assessment and Plan *Assessment and plan (1) Degenerative joint disease of cervical spine: Status: Acute Qualifiers: Spinal osteoarthritis complication: with radiculopathy Qualified Code(s): M47.22 - Other spondylosis with radiculopathy, cervical region Category: Medical Code(s): M47.812 - Spondylosis without myelopathy or radiculopathy, cervical region (2) Cervical radiculopathy: Status: Acute Category: Medical Code(s): M54.12 - Radiculopathy, cervical region (3) Neck pain: Status: Acute Category: Medical Code(s): M54.2 - Cervicalgia (4) Secondary osteoarthritis, right shoulder: Status: Acute Category: Medical Code(s): M19.211 - Secondary osteoarthritis, right shoulder (5) Acute pain of right shoulder: Status: Acute Category: Medical Code(s): M25.511 - Pain in right shoulder Plan Patient is experiencing worsening pain in his cervical spine with limited range of motion. Patient had a positive Anthony's test. I have discussed with the patient that he may benefit from a cervical epidural steroid injection. Risk and benefits were discussed with the patient and he would like to proceed f orward with this plan of care. Patient is not on any blood thinners. I will also order the patient a compounded cream. Patient has tried and failed conservative treatment such as oral medication, heat and ice, topicals, physical therapy, at home stretching exercise for longer than 6 weeks. Patient will be scheduled for a FABRICIO C5-C6 under fluoroscopy. Patient has been instructed to contact the clinic with any concerns before the next appointment. Dr. Saxena has reviewed this note and agrees with this plan of care. This note was dictated using voice recognition software and make contain errors or omissions.
[2023-09-16 09:25] VITALS: BP 150/93; PULSE 60; RESP 18; O2SAT 98; BMI 26.4
== END 2023-09-16 23:59 ==
LOC: SC.PAIN 08:41
PROVIDERS: PCP Family Medicine; Visit Provider Nurse Practitioner Family
DX: M47.22 Other spondylosis with radiculopathy, cervical region (principal); M54.2 Cervicalgia; M19.211 Secondary osteoarthritis, right shoulder; M25.511 Pain in right shoulder
CPT/HCPCS: 99202; G0463

== ENCOUNTER 2023-10-11 08:19 | Day surgery (SDC) | payer OTHER, SELFPAY ==
[2023-10-11 08:31] VITALS: BP 135/81; PULSE 80; RESP 18; TEMP 36.4; O2SAT 96; BMI 26.4
[2023-10-11] MEDS: IOPAMIDOL-200 (41%);10ML VIAL 10 ML IV (08:46)
[2023-10-11 08:51] VITALS: BP 146/84; PULSE 65; RESP 18; O2SAT 96
[2023-10-11] MEDS: methylPREDNISolone ACETATE 80MG/ML VIAL 80 MG (08:55)
--- NOTE | 2023-10-11 09:00 | P.PCN_ITS ---
Procedure Date: 10/11/23 Time: 08:40 Anesthesiologist:: Vincent Ahuja CRNA Complications:: None Pre-procedure Diagnosis:: Degenerative disc cervical spine multilevels. Cervical radiculopathy. Post-procedure Diagnosis:: Same. Indications for Procedure:: Patient is a very pleasant 52-year-old male comes our clinic today for cervical epidural steroid injection C6-7. Patient reports posterior cervical neck pain as well as bilateral arm radicular symptoms at times. He rates his pain 8/10. Procedure Details:: Procedure:Cervical epidural steroid injection Informed consent was obtained and the risks and benefits of the procedure were explained to the patient. The patient was taken to the procedure room and noninvasive monitors placed, including noninvasive blood pressure cuff and pulse oximeter. The neck was prepped using Chloraprep as a cleansing solution. The C6- C7 interspace was viewed using fluroscopy. The skin and subcutaneous tissues were anesthetized using lidocaine 1.5% and a 25-gauge needle. After this an 18- gauge Touhy epidural needle was placed into the C6-C7 interspace under fluroscopy guidance and advanced using loss of resistance to air until the epidural space was encountered. After confirmation of needle placement in the epidural space using contrast dye, a solution containing normal saline, 2 mL and Depo-Medrol 80 mg was incrementally injected into the cervical epidural space.~ The patient tolerated the procedure well with no complications. The patient was observed in the Pain Clinic and then discharged home neurologically intact. Plan and Disposition:: Patient was discharged without incident.
[2023-10-11 09:01] VITALS: BP 142/78; PULSE 65; RESP 18; O2SAT 96
[2023-10-11 09:02] VITALS: BP 142/78; PULSE 65; RESP 18; O2SAT 96
== END 2023-10-11 08:51 | disposition home or self-care (01) ==
LOC: SC.PAINP 08:19
PROVIDERS: PCP Family Medicine; Visit Provider Nurse Anesthetist, Certified Registered
DX: M50.123 Cervical disc disorder at C6-C7 level with radiculopathy (principal)
CPT/HCPCS: 62321; J1010; Q9966

== ENCOUNTER 2023-10-23 11:12 | Outpatient (POV) | payer OTHER, SELFPAY ==
[2023-10-23 11:22] VITALS: BP 149/96; PULSE 86; RESP 18; O2SAT 97; BMI 27.2
--- NOTE | 2023-10-23 11:35 | A.OFFVIS_ITS ---
[facility] Pain Management SOAP Note Subjective:: Patient is a pleasant 52-year-old male who presents today for follow-up of cervical epidural steroid injection C6 or C7 on 10/11/2023. Today he rates his pain a 6 out of 10. Patient denies any new trauma or injury from the last visit. He does state that it took a few days for the injection to kick in however it did provide relief however only lasted 3 to 4 days. Today he states his pain is more related to his neck along the right side and into his right shoulder and back. He describes this as an aching, throbbing sensation. He does state that he did get the compounded cream from our last visit and it does help however he does have to rely on his to help apply this due to diffic ulty to reach the sites. Patient does state that his current pain is interfering with his ability to perform activities of daily living and is interested in any help we may be able to provide. Patient has tried and failed conservative therapies. He is prescribed alprazolam from an outside provider. His Santosh has been reviewed and is appropriate. Review of Systems: General: No recent weight changes, no fever, no sleep disturbances Respiratory: No cough, no shortness of air, no recurring pulmonary infections Cardiovascular/peripheral vascular: No chest pain, no palpitations, no edema, no shortness of breath Gastrointestinal: No new onset incontinence, normal bowel movements reported Genitourinary: No new onset incontinence Musculoskeletal: Right-sided neck pain, right shoulder pain, right upper back pain Psychiatric: [Normal mood/affect] Neurological: [Denies weakness in extremities], [denies balance issues] Objective:: Physical Exam: General: Alert and oriented x3, no acute distress, pleasant and cooperative Lungs: Respirations even and unlabored, symmetrical chest expansion Eyes: PERRL Musculoskeletal: Flexion and extension of cervical [spine] somewhat guarded secondary to pain, [antalgic gait noted] point tenderness along right cervical paraspinous, right trapezius and right rhomboid muscles Neurological: Speech clear, no gross sensory deficit Assessment:: Degenerative disc disease of cervical spine with cervical radiculopathy symptoms, myofascial pain Plan:: Patient is experiencing worsening pain in his neck along the right side and into his right shoulder. Patient did have limited range of motion of his cervical s pine along with point tenderness at his right cervical paraspinous, right trapezius and right rhomboid muscles. I have discussed with the patient that he may benefit from trigger point injections at these locations. Risk and benefits were discussed with the patient and he would like to proceed forward with this plan of care. We will schedule the patient for trigger point injections of his right cervical paraspinous, right trapezius and right rhomboid muscles. Patient has been instructed to contact the clinic with any concerns before the next appointment. Dr. Saxena has reviewed this note and agrees with this plan of care. This note was dictated using voice recognition software and make contain errors or omissions. [facility] Disclaimer: The information contained in this section may have been updated after the patient was seen, as this information can be updated by other users. Medical History Abnormal electrocardiogram [ECG] [EKG] Cardiac pacemaker in situ Chest pain Generalized anxiety disorder Hypertension Major depressive disorder HARRISON (obstructive sleep apnea) Palpitations Shortness of Breath SVT (supraventricular tachycardia) Family History Other Unknown family medical history Social History Smoking Status: Current every day smoker tobacco type: e-cigarettes and smokeless tobacco second hand exposure: No alcohol intake: current substance use type: denies use current occupational status: employed Travel in the last 8 weeks: None household members: spouse and family housing: house marital status: number of children: 2 current occupational exposures/hazards: No caffeine: Yes
== END 2023-10-23 23:59 ==
LOC: SC.PAIN 11:13
PROVIDERS: PCP Family Medicine; Visit Provider Nurse Practitioner Family
DX: M50.123 Cervical disc disorder at C6-C7 level with radiculopathy (principal); M79.10 Myalgia, unspecified site
CPT/HCPCS: 99212; G0463

== ENCOUNTER 2023-12-03 12:06 | Day surgery (SDC) | payer OTHER, SELFPAY ==
[2023-12-03 13:16] VITALS: BP 143/80; PULSE 100; RESP 18; TEMP 36.8; O2SAT 98; BMI 27.2
[2023-12-03 13:23] VITALS: BP 126/78; BP 138/84; PULSE 103; PULSE 93; RESP 18; TEMP 36.7; O2SAT 98; O2SAT 99
[2023-12-03] MEDS: BUPIVACAINE 0.25% 10ML INJ 25 MG IJ (13:23)
[2023-12-03] MEDS: LIDOCAINE 1% 5ML PF VIAL 5 ML (13:23)
[2023-12-03] MEDS: methylPREDNISolone ACETATE 80MG/ML VIAL 80 MG (13:23)
--- NOTE | 2023-12-03 13:28 | EXP.PAIN.PRO ---
Procedure Date: 12/03/23 Time: 13:30 Anesthesiologist:: Vincent Ahuja CRNA Complications:: None Pre-procedure Diagnosis:: Myofascial pain right cervical paraspinous. Right trapezius. Right rhomboid. Post-procedure Diagnosis:: Same. Indications for Procedure:: Patient reports tightness and pain in the right cervical paraspinous as well as right trapezius and rhomboid. He describes the pain as constant, dull, aching. Patient having difficulty with range of motion secondary to pain. He rates his pain 7/10. Procedure Details:: Details of the procedure explained the patient. The patient taken procedure and placed in sitting position. Using a 25-gauge inch and half needle 2 separate areas of the right cervical paraspinous muscle was injected with 2 cc of 1% lidocaine and 20 mg of Depo-Medrol at each level. Also the right trapezius was injected with the same at 3 separate areas. The right rhomboid was also injected in 3 separate areas using the same solution. Patient tolerated procedure without difficulty. There are no complications. Plan and Disposition:: Patient was discharged without incident.
== END 2023-12-03 13:25 | disposition home or self-care (01) ==
PROVIDERS: PCP Family Medicine; Visit Provider Nurse Anesthetist, Certified Registered
DX: M79.18 Myalgia, other site (principal)
CPT/HCPCS: 20553

== ENCOUNTER 2023-12-23 09:03 | Outpatient (POV) | payer OTHER, SELFPAY ==
--- NOTE | 2023-12-23 09:09 | EXP.PAIN.SOA ---
[facility] Pain Management SOAP Note Subjective:: Patient is a pleasant 53-year-old male who presents today for follow-up right trigger point injections of the cervical paraspinous, right trapezius and right rhomboid on 12/03/2023. Patient rates his pain today a 5 out of 10. Patient states that he had at least 50% relief with this injection patient states he was able to move around easier with overall decreased pain. He does state however that he is back to his baseline today. He states he still continues to have the tightness with aching, throbbing sensations in his muscles up and around his neck only more predominant on the right side. He does state that it interferes with his ability to perform activities of daily living such as cooking and cleaning. Patient does feel like this injection did seem to work much better than the cervical epidural that he had prior to that. He feels like this lasted longer as compared to the cervical epidural that lasted approximately 4 days. Patient is prescribed compounding cream and states that it does help however he has difficulty applying it to his neck and back and has to rely on his . Patient is prescribed alprazolam from an outside provider. Patient also states here in the last week or so he has had more low back pain with pain radiating down his left leg. He states it goes all the way to his foot and states it is just a mild pain with stinging into his toes. He only rates his pain about a 3 out of 10 and states it is still manageable. His Santosh has been reviewed and is appropriate. Review of Systems: General: No recent weight changes, no fever, no sleep disturbances Respiratory: No cough, no shortness of air, no recurring pulmonary infections Cardiovascular/peripheral vascular: No chest pain, no palpitations, no edema, no shortness of breath Gastrointestinal: No new onset incontinence, normal bowel movements reported Genitourinary: No new onset incontinence Musculoskeletal: Neck pain, right shoulder pain Psychiatric: [Normal mood/affect] Neurological: [Denies weakness in extremities], [denies balance issues] Objective:: Physical Exam: General: Alert and oriented x3, no acute distress, pleasant and cooperative Lungs: Respirations even and unlabored, symmetrical chest expansion Eyes: PERRL Musculoskeletal: Flexion and extension of cervical [spine] somewhat guarded secondary to pain, [antalgic gait noted] point tenderness along right cervical paraspinous, right trapezius and right rhomboid muscles Neurological: Speech clear, no gross sensory deficit Assessment:: Degenerative disc disease of cervical spine with cervical radiculopathy symptoms, myofascial pain, low back pain, left leg pain Plan:: I have discussed with the patient that he may benefit from repeat injections since he still has significant point tenderness along his right cervical paraspinous, right trapezius and right rhomboid muscles. Risk and benefits were discussed with patient and he would like to proceed forward with this plan of care. I have also discussed with the patient to try the compounded cream on his toes that are experiencing more burning and numbness. Patient was counseled that if the low back and leg issues continue to bother him or worsen it would be beneficial to order updated imaging. Patient denies any recent imaging of his low back. Patient will be submitted for trigger point injections of his right cervical paraspinous, right trapezius and right rhomboid muscles. Patient has been instructed to contact the clinic with any concerns before the next appointment. Dr. Saxena has reviewed this note and agrees with this plan of care. This note was dictated using voice recognition software and make contain errors or omissions. [facility] Disclaimer: The information contained in this section may have been updated after the patient was seen, as this information can be updated by other users. Medical History Abnormal electrocardiogram [ECG] [EKG] Cardiac pacemaker in situ Chest pain Generalized anxiety disorder Hypertension Major depressive disorder HARRISON (obstructive sleep apnea) Palpitations Shortness of Breath SVT (supraventricular tachycardia) Family History Other Unknown family medical history Social History Smoking Status: Current every day smoker tobacco type: e-cigarettes and smokeless tobacco second hand exposure: No alcohol intake: current alcohol intake frequency: a few times a week substance use type: denies use current occupational status: employed Travel in the last 8 weeks: None household members: spouse and family housing: house marital status: number of children: 2 current occupational exposures/hazards: No caffeine: Yes
[2023-12-23 09:10] VITALS: BP 129/87; PULSE 101; RESP 16; O2SAT 95; BMI 26.4
== END 2023-12-23 23:59 | disposition home or self-care (01) ==
LOC: SC.PAIN 09:03
PROVIDERS: PCP Family Medicine; Visit Provider Nurse Practitioner Family
DX: M50.10 Cervical disc disorder with radiculopathy, unspecified cervical region (principal); M79.18 Myalgia, other site; M54.50 Low back pain, unspecified; M79.605 Pain in left leg
CPT/HCPCS: 99212; G0463

== ENCOUNTER 2024-01-07 08:11 | Day surgery (SDC) | payer OTHER, SELFPAY ==
[2024-01-07 08:29] VITALS: BP 145/82; PULSE 75; RESP 18; TEMP 36.7; O2SAT 98; BMI 26.9
[2024-01-07] MEDS: BUPIVACAINE 0.25% 10ML INJ 25 MG IJ (08:55)
[2024-01-07] MEDS: methylPREDNISolone ACETATE 80MG/ML VIAL 80 MG (08:55)
[2024-01-07] MEDS: LIDOCAINE 1% 5ML PF VIAL 5 ML (08:55)
[2024-01-07 08:56] VITALS: BP 158/88; PULSE 79; RESP 18; O2SAT 98
[2024-01-07 08:57] VITALS: BP 158/88; PULSE 79; RESP 18; O2SAT 98
--- NOTE | 2024-01-07 08:58 | EXP.PAIN.PRO ---
Procedure Date: 01/07/24 Time: 08:40 Anesthesiologist:: Vincent Ahuja CRNA Complications:: None Pre-procedure Diagnosis:: Myofascial pain right trapezius. Right rhomboid. Right cervical paraspinous muscle. Post-procedure Diagnosis:: Same. Indications for Procedure:: Patient is a pleasant 53-year-old male comes our clinic today for trigger point injections of cortisone and local anesthesia of the right distal cervical paraspinous muscle as well as right trapezius and right rhomboid. Procedure Details:: Details of the procedure explained to the patient. The patient taken procedure and placed in sitting position. The area over the right posterior cervical spine as well as right trapezius was cleaned using chlorhexidine as a cleansing solution. Using a 25-gauge inch and half needle the base of the right posterior cervical paraspinous muscle was accessed with ease. After negative aspiration 3 cc of 1% lidocaine +20 mg of Depo-Medrol was injected. The right trapezius muscle was injected in 3 separate areas with the same injection. The right rhomboid medial to the scapular border was injected into separate areas with the same. Patient tolerated procedure without difficulty. There are no complications. Plan and Disposition:: Patient was discharged without incident.
[2024-01-07 09:00] VITALS: BP 155/87; PULSE 75; RESP 18; O2SAT 100
== END 2024-01-07 09:00 | disposition home or self-care (01) ==
PROVIDERS: PCP Family Medicine; Visit Provider Nurse Anesthetist, Certified Registered
DX: M79.18 Myalgia, other site (principal)
CPT/HCPCS: 20553; J1010

== ENCOUNTER 2024-01-30 09:42 | Outpatient (POV) | payer OTHER, SELFPAY ==
[2024-01-30 09:49] VITALS: BP 157/82; PULSE 65; RESP 18; O2SAT 99; BMI 25.9
[2024-01-30 09:59] VITALS: BP 149/82
--- NOTE | 2024-01-30 10:00 | PC.NURSE ---
provider notified of bp readings
--- NOTE | 2024-01-30 10:09 | EXP.PAIN.SOA ---
[facility] Disclaimer: The information contained in this section may have been updated after the patient was seen, as this information can be updated by other users. Medical History Hx of cardiac pacemaker Abnormal electrocardiogram [ECG] [EKG] HARRISON (obstructive sleep apnea) Hypertension Shortness of Breath Chest pain Generalized anxiety disorder Major depressive disorder SVT (supraventricular tachycardia) Palpitations Cardiac pacemaker in situ Surgical History Hx of appendectomy History of back surgery History of right shoulder replacement Hx of left knee surgery Family History Other Cancer Heart attack Unknown family medical history Social History Smoking Status: Current every day smoker tobacco type: e-cigarettes and smokeless tobacco second hand exposure: No alcohol intake: current alcohol intake frequency: a few times a week substance use type: denies use current occupational status: employed Travel in the last 8 weeks: None household members: spouse and family housing: house marital status: number of children: 2 current occupational exposures/hazards: No caffeine: Yes PM Subjective & Objective Subjective Subjective:: Patient is a pleasant 53-year-old male who presents today for follow-up trigger point injections of his right distal cervical paraspinous and right trapezius and right rhomboid muscles on 01/07/2024. Today he rates his pain a 8 out of 10. Patient states that he only got minimal relief of about 10% from this injections and that he is still experiencing significant pain throughout his neck with more symptoms prominent on the right side and some on the left. Patient does describe this as a constant aching, throbbing sensation that goes into and around his right shoulder/shoulder blade area but does also complain of numbness and tingling into his bilateral arms and fingers. He does state the pain interferes with his ability to perform activities of daily living such as cooking and cleaning. Patient does state that he is interested in any help we may be able to provide. His Santosh has been reviewed and is appropriate. Review of Systems: General: No recent weight changes, no fever, no sleep disturbances Respiratory: No cough, no shortness of air, no recurring pulmonary infections Cardiovascular/peripheral vascular: No chest pain, no palpitations, no edema, no shortness of breath Gastrointestinal: No new onset incontinence, normal bowel movements reported Genitourinary: No new onset incontinence Musculoskeletal: Neck pain, bilateral arm pain, right shoulder blade pain Psychiatric: [Normal mood/affect] Neurological: [Denies weakness in extremities], [denies balance issues] Pain at rest (0-10 scale): 8 Objective Objective:: Physical Exam: General: Alert and oriented x3, no acute distress, pleasant and cooperative Lungs: Respirations even and unlabored, symmetrical chest expansion Eyes: PERRL Musculoskeletal: Flexion and extension of cervical [spine] somewhat guarded secondary to pain, [antalgic gait noted] positive Spurling's test Neurological: Speech clear, no gross sensory deficit Has patient had previous pain injection?: Yes Percent improvement in pain since last injection: 10% Conservative treatment options previously tried: Home exercise plan Length of treatment: Longer than 6 weeks and Prescription medications Length of treatment: Longer than 6 weeks Meds Home Medications and Allergies Home Medications ?Medication ?Instructions ?Recorded ?Confirmed ?Type alprazolam 1 mg tablet (Xanax) 1 mg PO QID Anxiety 02/06/19 01/07/24 History valsartan 160 mg tablet 160 mg PO DAILY Hypertension #90 07/04/23 01/07/24 Rx tabs cyclobenzaprine 10 mg tablet 10 mg PO BID Pain 09/05/23 01/30/24 History vortioxetine 20 mg tablet 20 mg PO DAILY Depression #90 tabs 12/05/23 01/07/24 Rx (Trintellix) testosterone cypionate 200 mg/mL 200 mg IM QMONTH 01/06/24 01/07/24 History intramuscular oil metoprolol succinate 25 mg 25 mg PO DAILY increased HR 01/30/24 01/30/24 History tablet,extended release 24 hr (Toprol XL) New Prescriptions to Start Prescriptions: Allergies Allergy/AdvReac Type Severity Reaction Status Date / Time Tricyclic Antidepressants Allergy Unknown Verified 01/07/24 08:29 and Tricy [TRICYCLIC COMPOUNDS] metoprolol AdvReac fatigue Verified 01/07/24 08:29 Assessment and Plan *Assessment and plan (1) Cervical radiculopathy: Status: Acute Category: Medical Code(s): M54.12 - Radiculopathy, cervical region (2) Degenerative joint disease of cervical spine: Status: Acute Qualifiers: Spinal osteoarthritis complication: with radiculopathy Qualified Code(s): M47.22 - Other spondylosis with radiculopathy, cervical region Category: Medical Code(s): M47.812 - Spondylosis without myelopathy or radiculopathy, cervical region Plan Patient is experiencing worsening pain in his neck with radiating symptoms down his bilateral lower extremities with numbness and tingling. Patient had limited range of motion of the cervical spine with a positive Spurling's test. Patient did previously have a cervical epidural at C6-C7 back in October that did provide at least 50% improvement however only lasted very temporary. I have discussed with the patient that he may benefit more from a cervical epidural at the C5-C6 level where he does have more narrowing. Risk and benefits of this injection were explained to the patient and he would like to proceed forward with this plan of care. Patient has continued to do at home exercise and stretching for longer than 6 weeks as well as oral medications, heat and ice and topicals. Patient was also recently prescribed Flexeril with minimal relief. Patient is not on any blood thinners. We will schedule the patient for a FABRICIO C6-C7 under fluoroscopy. Patient did have elevated blood pressure at today's visit and was counseled regarding this. Patient is on blood pressure medication and does state that his primary care is aware of this. Patient has been instructed to contact the clinic with any concerns before the next appointment. Dr. Saxena has reviewed this note and agrees with this plan of care. This note was dictated using voice recognition software and make contain errors or omissions. All injections are used with Lidocaine or Bupivacaine and Depo Medrol.
== END 2024-01-30 23:59 | disposition home or self-care (01) ==
LOC: SC.PAIN 09:42
PROVIDERS: PCP Family Medicine; Visit Provider Nurse Practitioner Family
DX: M47.22 Other spondylosis with radiculopathy, cervical region; F17.220 Nicotine dependence, chewing tobacco, uncomplicated; Z73.89 Other problems related to life management difficulty; Z79.899 Other long term (current) drug therapy
CPT/HCPCS: 99212; G0463

== ENCOUNTER 2024-02-10 10:30 | Outpatient (POV) | payer OTHER, SELFPAY ==
--- NOTE | 2024-02-10 10:45 | EXP.PAIN.SOA ---
[facility] Disclaimer: The information contained in this section may have been updated after the patient was seen, as this information can be updated by other users. Medical History Hx of cardiac pacemaker Abnormal electrocardiogram [ECG] [EKG] HARRISON (obstructive sleep apnea) Hypertension Shortness of Breath Chest pain Generalized anxiety disorder Major depressive disorder SVT (supraventricular tachycardia) Palpitations Cardiac pacemaker in situ Surgical History Hx of appendectomy History of back surgery History of right shoulder replacement Hx of left knee surgery Family History Other Cancer Heart attack Unknown family medical history Social History Smoking Status: Current every day smoker tobacco type: e-cigarettes and smokeless tobacco second hand exposure: No alcohol intake: current alcohol intake frequency: a few times a week substance use type: denies use current occupational status: employed Travel in the last 8 weeks: None household members: spouse and family housing: house marital status: number of children: 2 current occupational exposures/hazards: No caffeine: Yes PM Subjective & Objective Subjective Subjective:: Patient is a pleasant 53-year-old male who presents today for insurance denial of a cervical epidural. Today he rates his pain a 7 out of 10. Patient denies any new trauma or injury. He does find that he continues to have both neck and low back pain with radiating numbness and tingling that goes into both upper and lower extremities. Patient does state the pain is constant and continues to interfere with his activities of daily living. Patient does state he still would like to proceed forward with the injection therapy. Patient does also state that he is thinking about applying for disability due to this not getting any better. His Santosh has been reviewed and is appropriate. Review of Systems: General: No recent weight changes, no fever, no sleep disturbances Respiratory: No cough, no shortness of air, no recurring pulmonary infections Cardiovascular/peripheral vascular: No chest pain, no palpitations, no edema, no shortness of breath Gastrointestinal: No new onset incontinence, normal bowel movements reported Genitourinary: No new onset incontinence Musculoskeletal: Neck pain, low back pain, upper and lower extremity numbness and tingling Psychiatric: [Normal mood/affect] Neurological: [Denies weakness in extremities], [denies balance issues] Pain at rest (0-10 scale): 7 Objective Objective:: Physical Exam: General: Alert and oriented x3, no acute distress, pleasant and cooperative Lungs: Respirations even and unlabored, symmetrical chest expansion Eyes: PERRL Musculoskeletal: Flexion and extension of cervical [spine] somewhat guarded secondary to pain, [antalgic gait noted] Neurological: Speech clear, no gross sensory deficit Has patient had previous pain injection?: No Conservative treatment options previously tried: Home exercise plan Length of treatment: Longer than 6 weeks Meds Home Medications and Allergies Home Medications ?Medication ?Instructions ?Recorded ?Confirmed ?Type alprazolam 1 mg tablet (Xanax) 1 mg PO QID Anxiety 02/06/19 01/07/24 History valsartan 160 mg tablet 160 mg PO DAILY Hypertension #90 07/04/23 01/07/24 Rx tabs cyclobenzaprine 10 mg tablet 10 mg PO BID Pain 09/05/23 01/30/24 History vortioxetine 20 mg tablet 20 mg PO DAILY Depression #90 tabs 12/05/23 01/07/24 Rx (Trintellix) testosterone cypionate 200 mg/mL 200 mg IM QMONTH 01/06/24 01/07/24 History intramuscular oil metoprolol succinate 25 mg 25 mg PO DAILY increased HR 01/30/24 01/30/24 History tablet,extended release 24 hr (Toprol XL) New Prescriptions to Start Prescriptions: Allergies Allergy/AdvReac Type Severity Reaction Status Date / Time Tricyclic Antidepressants Allergy Unknown Verified 01/07/24 08:29 and Tricy [TRICYCLIC COMPOUNDS] metoprolol AdvReac fatigue Verified 01/07/24 08:29 Assessment and Plan *Assessment and plan (1) Cervical radiculopathy: Status: Acute Category: Medical Code(s): M54.12 - Radiculopathy, cervical region (2) Neck pain: Status: Acute Category: Medical Code(s): M54.2 - Cervicalgia (3) Low back pain: Status: Acute Qualifiers: Chronicity: chronic Back pain laterality: bilateral Sciatica presence: without sciatica Qualified Code(s): M54.50 - Low back pain, unspecified; G89.29 - Other chronic pain Category: Medical Code(s): M54.50 - Low back pain, unspecified Plan Patient is still experiencing worsening pain throughout his neck with radiating numbness and tingling into his bilateral upper extremities. Patient has not had updated imaging since 2021 and we will submit for x-ray and CT without contrast of his cervical spine. Patient does have a pacemaker and is not able to have MRI due to noncompatibility. I have discussed with the patient that we will still plan on trying to get the injection approved in future. Patient was counseled that he can always get copies of our notes for his primary care or disability in the future however we do not fill out any disability paperwork unless he has had surgery or other significant findings related to our office. Patient acknowledges understanding. Patient will return to clinic in 1 month following his imaging for reevaluation of symptoms and plan of care. Patient has been instructed to contact the clinic with any concerns before the next appointment. Dr. Saxena has reviewed this note and agrees with this plan of care. This note was dictated using voice recognition software and make contain errors or omissions. All injections are used with Lidocaine or Bupivacaine and Depo Medrol.
[2024-02-10 12:04] VITALS: BP 139/89; PULSE 82; RESP 16; O2SAT 94; BMI 26.4
== END 2024-02-10 23:59 | disposition home or self-care (01) ==
LOC: SC.PAIN 10:31
PROVIDERS: PCP Family Medicine; Visit Provider Nurse Practitioner Family
DX: M54.12 Radiculopathy, cervical region (principal); M54.2 Cervicalgia; M54.50 Low back pain, unspecified; G89.29 Other chronic pain; U07.0 Vaping-related disorder; Z95.0 Presence of cardiac pacemaker; Z73.89 Other problems related to life management difficulty
CPT/HCPCS: 99212; G0463

== ENCOUNTER 2024-02-10 10:54 | Outpatient (CLI) | payer OTHER, SELFPAY ==
--- NOTE | 2024-02-10 11:07 | XR_ITS ---
FINAL REPORT TECHNIQUE: 5 views CLINICAL HISTORY: NECK PAIN COMPARISON: None FINDINGS: CERVICAL SPINE: 5 views of the cervical spine were obtained with AP, lateral, bilateral oblique and odontoid views. There is normal alignment of the cervical vertebral bodies. No evidence of fracture is identified. Mild degenerative change is present. No prevertebral edema is present. IMPRESSION: Mild degenerative change without acute bony abnormality. Reviewed, Interpreted and Dictated by Steven Jones III, MD Transcribed by Elise Henning Authenticated and [facility]
== END 2024-02-10 23:59 | disposition home or self-care (01) ==
LOC: RAD 10:56
PROVIDERS: PCP Family Medicine; Visit Provider Nurse Practitioner Family
DX: M54.2 Cervicalgia (principal); M79.621 Pain in right upper arm; M79.622 Pain in left upper arm
CPT/HCPCS: 72050

== ENCOUNTER 2024-02-21 13:29 | Outpatient (CLI) | payer OTHER, SELFPAY ==
--- NOTE | 2024-02-21 13:32 | CT_ITS ---
FINAL REPORT CLINICAL HISTORY: NECK C BUE PAIN COMPARISON: 04/10/2022 FINDINGS: Axial CT images of the cervical spine were obtained without contrast. Sagittal and coronal reformatted images were also obtained. This study was performed with techniques to keep radiation doses as low as reasonably achievable (ALARA). Individualized dose reduction techniques using automated exposure control or adjustment of mA and/or kV according to the patient''s size were employed. There is no evidence of fracture or dislocation. There is mild degenerative change with osteophytes. C2-3: No significant cervical canal stenosis or neural foraminal narrowing. C3-4: Annular disc bulge. Uncovertebral osteophytes. Moderate right and mild left neural foraminal narrowing. Mild central canal stenosis with AP diameter of the thecal sac of 9 mm. C4-5: Small central disc protrusion. No significant cervical canal stenosis or neural foraminal narrowing. C5-6: Disc osteophyte complex. Right foraminal disc protrusion. Mild bilateral neural foraminal narrowing. Mild central canal stenosis with AP diameter of the thecal sac of 9 mm. C6-7: Disc osteophyte complex. Mild left neural foraminal narrowing. C7-T1: No significant central canal stenosis or neural foraminal narrowing. IMPRESSION: Multilevel degenerative disc disease as above. Disc protrusions at C4-5 and C5-6. Mild central canal stenosis at C3-4 and C5-6. Reviewed, Interpreted and Dictated by Steven Jones III, MD Transcribed by Katy Moran Authenticated and . [facility]
== END 2024-02-21 23:59 | disposition home or self-care (01) ==
LOC: RAD 13:30
PROVIDERS: PCP Family Medicine; Visit Provider Nurse Practitioner Family
DX: M54.2 Cervicalgia (principal); M54.9 Dorsalgia, unspecified
CPT/HCPCS: 72125

== ENCOUNTER 2024-03-16 11:03 | Outpatient (POV) | payer OTHER, SELFPAY ==
--- NOTE | 2024-03-16 11:43 | A.OFFVIS_ITS ---
[facility] Disclaimer: The information contained in this section may have been updated after the patient was seen, as this information can be updated by other users. Medical History Hx of cardiac pacemaker Abnormal electrocardiogram [ECG] [EKG] HARRISON (obstructive sleep apnea) Hypertension Shortness of Breath Chest pain Generalized anxiety disorder Major depressive disorder SVT (supraventricular tachycardia) Palpitations Cardiac pacemaker in situ Surgical History Hx of appendectomy History of back surgery History of right shoulder replacement Hx of left knee surgery Family History Other Cancer Heart attack Unknown family medical history Social History Smoking Status: Current every day smoker tobacco type: e-cigarettes and smokeless tobacco second hand exposure: No alcohol intake: current alcohol intake frequency: a few times a week substance use type: denies use current occupational status: employed Travel in the last 8 weeks: None household members: spouse and family housing: house marital status: number of children: 2 current occupational exposures/hazards: No caffeine: Yes PM Subjective & Objective Subjective Subjective:: Patient is a pleasant 53-year-old male who presents today for cervical MRI follow-up. Today he rates his pain a 10 out of 10. He denies any new trauma or injury. He does state that he is still having worsening pain in his neck with radiating symptoms into his right upper extremity of numbness and tingling. Patient was previously denied a cervical epidural due to not having updated imaging. He does state now that his insurance actually dropped him and he is in the middle of fighting this. Patient does state the pain is constant and interferes with his ability perform activities of daily living. Patient is currently on Flexeril but states he does not notice any additional improvement with this. Patient does have a heart history with a pacemaker in place. His Santosh has been reviewed and is appropriate. Review of Systems: General: No recent weight changes, no fever, no sleep disturbances Respiratory: No cough, no shortness of air, no recurring pulmonary infections Cardiovascular/peripheral vascular: No chest pain, no palpitations, no edema, no shortness of breath Gastrointestinal: No new onset incontinence, normal bowel movements reported Genitourinary: No new onset incontinence Musculoskeletal: Neck pain, right upper extremity pain Psychiatric: [Normal mood/affect] Neurological: [Denies weakness in extremities], [denies balance issues] Pain at rest (0-10 scale): 10 Objective Objective:: Physical Exam: General: Alert and oriented x3, no acute distress, pleasant and cooperative Lungs: Respirations even and unlabored, symmetrical chest expansion Eyes: PERRL Musculoskeletal: Flexion and extension of cervical [spine] somewhat guarded secondary to pain, [antalgic gait noted] Neurological: Speech clear, no gross sensory deficit Has patient had previous pain injection?: No Conservative treatment options previously tried: Home exercise plan Length of treatment: Longer than 6 weeks Meds Home Medications and Allergies Home Medications ?Medication ?Instructions ?Recorded ?Confirmed ?Type alprazolam 1 mg tablet (Xanax) 1 mg PO QID Anxiety 02/06/19 02/10/24 History valsartan 160 mg tablet 160 mg PO DAILY Hypertension #90 07/04/23 02/10/24 Rx tabs cyclobenzaprine 10 mg tablet 10 mg PO BID Pain 09/05/23 02/10/24 History vortioxetine 20 mg tablet 20 mg PO DAILY Depression #90 tabs 12/05/23 02/10/24 Rx (Trintellix) testosterone cypionate 200 mg/mL 200 mg IM QMONTH 01/06/24 02/10/24 History intramuscular oil metoprolol succinate 25 mg 25 mg PO DAILY increased HR 01/30/24 02/10/24 History tablet,extended release 24 hr (Toprol XL) New Prescriptions to Start Prescriptions: Allergies Allergy/AdvReac Type Severity Reaction Status Date / Time Tricyclic Antidepressants Allergy Unknown Verified 01/07/24 08:29 and Tricy [TRICYCLIC COMPOUNDS] metoprolol AdvReac fatigue Verified 01/07/24 08:29 Assessment and Plan *Assessment and plan (1) Degenerative joint disease of cervical spine: Status: Acute Qualifiers: Spinal osteoarthritis complication: with radiculopathy Qualified Code(s): M47.22 - Other spondylosis with radiculopathy, cervical region Category: Medical Code(s): M47.812 - Spondylosis without myelopathy or radiculopathy, cervical region (2) Cervical radiculopathy: Status: Acute Category: Medical Code(s): M54.12 - Radiculopathy, cervical region Plan Patient continues to experience significant pain throughout his neck with numbness and tingling into his upper right extremity. I did review over his cervical MRI findings. I did discuss that he would benefit from a cervical epidural at the C5-C6 level however due to not currently having insurance we will send in a 5-day dose of prednisone 20 mg twice daily. I will also send in a 2-week dose of baclofen 10 mg 3 times daily. Patient was counseled to discontinue his Flexeril. Patient will return to clinic in 2 weeks for reevaluation of symptoms and plan of care. Patient has been instructed to contact the clinic with any concerns before the next appointment. Dr. Saxena has reviewed this note and agrees with this plan of care. This note was dictated using voice recognition software and make contain errors or omissions. All injections are used with Lidocaine or Bupivacaine and Depo Medrol.
[2024-03-16 11:45] VITALS: BP 160/93; PULSE 74; RESP 18; O2SAT 98; BMI 26.9
== END 2024-03-16 23:59 | disposition home or self-care (01) ==
PROVIDERS: PCP Family Medicine; Visit Provider Nurse Practitioner Family
DX: M47.22 Other spondylosis with radiculopathy, cervical region (principal); Z95.0 Presence of cardiac pacemaker; F17.290 Nicotine dependence, other tobacco product, uncomplicated; F17.220 Nicotine dependence, chewing tobacco, uncomplicated; Z73.89 Other problems related to life management difficulty
CPT/HCPCS: 99212; G0463

== ENCOUNTER 2024-04-07 19:42 | Emergency (ER) | payer OTHER, SELFPAY ==
--- NOTE | 2024-04-07 19:45 | HMH.EDGENADL ---
Discharge Plan Disposition Patient Disposition: Home, Self-Care Condition: Fair Prescriptions Prescriptions: New prednisone 50 mg tablet 50 mg PO DAILY 5 Days Qty: 5 0RF No Action alprazolam [Xanax] 1 mg tablet 1 mg PO QID Patient Comments: previously given before seeing tru meredith 02-06-19 valsartan 160 mg tablet 160 mg PO DAILY Qty: 90 3RF testosterone cypionate 200 mg/mL oil 200 mg IM QMONTH Patient Comments: INJECT 1 ML (CC) INTRAMUSCULARLY ONCE EVERY MONTH Trintellix 20 mg tablet 20 mg PO DAILY Qty: 90 1RF cyclobenzaprine 10 mg tablet 10 mg PO BID metoprolol succinate [Toprol XL] 25 mg tablet extended release 24 hr 25 mg PO DAILY prednisone 20 mg tablet 20 mg PO BID Qty: 10 0RF baclofen 10 mg tablet 10 mg PO TID Qty: 42 0RF Referrals Follow up/Referrals: Provider,Referral, MD [Primary Care Provider] - See instructions Activity Restrictions/Add. Instructions Additional Instructions/Restrictions: Wear sling as tolerated until evaluated by orthopedics. Please call in the morning and make a follow-up appointment with Dr. Blandon. Return to ER for any worsening signs or symptoms as needed. Clinical Impressions Clinical Impression: Injury of right shoulder Qualifiers: Encounter type: initial encounter Qualified Code(s): S49.91XA - Unspecified injury of right shoulder and upper arm, initial encounter Print Language Print Language: Divehi Discharge ED Provider: Solo Hess General Adult HPI <SCOT Flynn - Last Filed: 04/07/24 22:19> General Chief complaint: Extremity Injury, Upper Stated complaint: right frozen shoulder Time Seen by Provider: 04/07/24 19:45 History of Present Illness HPI narrative: Patient presents for evaluation of acute right shoulder pain. Patient has a long 20-year history of right shoulder and neck problems including 2 total rotator cuff repairs. Today he was sitting in his recliner and abducted his right arm and felt a sharp pop and then exquisite pain. He is unable to move his arm since due to the pain. He reports no numbness or tingling and still is neurovascularly intact. He has had no trauma no falls. Related Data Home Medications ?Medication ?Instructions ?Recorded ?Confirmed alprazolam 1 mg tablet (Xanax) 1 mg PO QID Anxiety 02/06/19 03/16/24 cyclobenzaprine 10 mg tablet 10 mg PO BID Pain 09/05/23 03/16/24 testosterone cypionate 200 mg/mL 200 mg IM QMONTH 01/06/24 03/16/24 intramuscular oil metoprolol succinate 25 mg 25 mg PO DAILY increased HR 01/30/24 03/16/24 tablet,extended release 24 hr (Toprol XL) Previous Rx's ?Medication ?Instructions ?Recorded valsartan 160 mg tablet 160 mg PO DAILY Hypertension #90 07/04/23 tabs vortioxetine 20 mg tablet 20 mg PO DAILY Depression #90 tabs 12/05/23 (Trintellix) baclofen 10 mg tablet 10 mg PO TID #42 tabs 03/16/24 prednisone 20 mg tablet 20 mg PO BID #10 tabs 03/16/24 prednisone 50 mg tablet 50 mg PO DAILY 5 days #5 tabs 04/07/24 Allergies Allergy/AdvReac Type Severity Reaction Status Date / Time Tricyclic Antidepressants Allergy Unknown Verified 01/07/24 08:29 and Tricy [TRICYCLIC COMPOUNDS] metoprolol AdvReac fatigue Verified 01/07/24 08:29 [facility] <SCOT Flynn - Last Filed: 04/07/24 22:19> [facility] Disclaimer: The information contained in this section may have been updated after the patient was seen, as this information can be updated by other users. Medical History Hx of cardiac pacemaker Abnormal electrocardiogram [ECG] [EKG] HARRISON (obstructive sleep apnea) Hypertension Shortness of Breath Chest pain Generalized anxiety disorder Major depressive disorder SVT (supraventricular tachycardia) Palpitations Cardiac pacemaker in situ Surgical History Hx of appendectomy History of back surgery History of right shoulder replacement Hx of left knee surgery Family History Other Cancer Heart attack Unknown family medical history Social History Smoking Status: Current every day smoker tobacco type: e-cigarettes and smokeless tobacco second hand exposure: No alcohol intake: current alcohol intake frequency: a few times a week substance use type: denies use current occupational status: employed Travel in the last 8 weeks: None household members: spouse and family housing: house marital status: number of children: 2 current occupational exposures/hazards: No caffeine: Yes Other Medical History Have you received the Flu Vaccine for this season: No Have you received the Pneumonia Vaccine: No <SCOT Flynn - Last Filed: 04/07/24 22:19> ROS Obtained: Yes Systems reviewed as appropriate & no additional complaints except as documented Physical Exam <SCOT Flynn - Last Filed: 04/07/24 22:19> General General appearance: alert and in no apparent distress Respiratory Respiratory exam: Present normal lung sounds bilaterally Cardiovascular Cardiovascular exam: Present regular rate Neurological Exam Neurological exam: Present alert and oriented X3 Medical Decision Making <SCOT Flynn - Last Filed: 04/07/24 22:19> Medical Records Medical records reviewed: Yes I reviewed the patient's medical records. Screening: Per USPSTF and CDC recommendations, given the prevalence of disease in our region, it is our hospital?s policy to screen for HIV and viral Hepatitis for all patients aged 18 and over and those with ongoing risk factors. Santosh Inquiry Pt receiving controlled substance: No Vital Signs: 04/07/24 19:48 04/07/24 19:51 04/07/24 20:00 Temperature 98.4 F Temperature Source Oral Pulse Rate 93 H 81 Pulse Rate [Right Radial] 87 Respiratory Rate 16 Blood Pressure 161/107 H 144/90 H Blood Pressure [Right Arm] 161/107 H Blood Pressure Mean [Right Arm] 125 Blood Pressure Source Blood Pressure Source [Right Arm] Automatic Cuff Blood Pressure Position [Right Arm] Sitting 02 Sat by Pulse Oximetry 96 95 95 Oxygen Delivery Method Room Air 04/07/24 20:30 04/07/24 21:32 Temperature 98.1 F Temperature Source Pulse Rate 86 65 Pulse Rate [Right Radial] Respiratory Rate 16 Blood Pressure 153/98 H 153/87 H Blood Pressure [Right Arm] Blood Pressure Mean [Right Arm] Blood Pressure Source Automatic Cuff Blood Pressure Source [Right Arm] Blood Pressure Position [Right Arm] 02 Sat by Pulse Oximetry 95 Oxygen Delivery Method Room Air Lab Data Lab results reviewed: Yes I reviewed the patient's lab results. Orders (Tests/Meds): ED MEDICATIONS Discontinued Medications Generic Name Dose Route Start Last Admin Trade Name Amari PRN Reason Stop Dose Admin Acetaminophen 1,000 mg 04/07/24 20:05 04/07/24 20:19 Acetaminophen 1,000mg/100ml Vial IV 04/07/24 20:06 1,000 mg ONCE ONE Administration Dexamethasone Sodium Phosphate 10 mg 04/07/24 20:05 04/07/24 20:19 Dexamethasone 4mg/Ml 5ml Mdv IV 04/07/24 20:06 10 mg ONCE ONE Administration Hydromorphone HCl 1 mg 04/07/24 21:00 04/07/24 21:08 Hydromorphone 2mg/Ml Syringe IV 04/07/24 21:01 1 mg ONCE ONE Administration Lactated Ringer's 1,000 mls @ 999 mls/hr 04/07/24 20:05 04/07/24 20:18 Lactated Ringer's 1000 Ml Bag IV 04/07/24 21:05 999 mls/hr .Q1H1M ONE Administration Ketorolac Tromethamine 15 mg 04/07/24 20:05 04/07/24 20:19 Ketorolac 30mg/Ml Vial IV 04/07/24 20:06 15 mg ONCE ONE Administration Lidocaine 1 each 04/07/24 20:05 04/07/24 20:23 Lidocaine 5% Transdermal Patch TP 04/07/24 20:06 1 each ONCE ONE Administration Methocarbamol 500 mg 04/07/24 20:05 04/07/24 20:19 Methocarbamol 500mg Tablet PO 04/07/24 20:06 500 mg ONCE ONE Administration ORDERS Category Date Time Status XR shoulder RT min 2V Stat Exams 04/07/24 20:05 Completed Medical Decision Narrative: In summary patient is a 53-year-old male who presents to the emergency department for evaluation of right shoulder pain. Patient is hemodynamically stable upon arrival, afebrile. Physical exam is remarkable for tenderness to range of motion however patient is neurovascular intact distally of the right upper extremity. Palpation of the joint reveals no bony deformity and no palpable biceps tendon tenderness no tenderness at the AC joint. Differential diagnosis includes rotator cuff tear versus atraumatic dislocation etc. Initial workup will be conducted with plain film x-rays. Initial interventions include crystalloid bolus Toradol Tylenol Robaxin Decadron Lidoderm patch. Initial workup reviewed by me and my informal interpretation of his plain film x-ray shows no bony misalignment no edema noted what is visible are 2 previous anchors in the humeral head. Upon repeat evaluation patient has received minimal relief with initial intervention thus I have had an interactive discussion of patient about opioid use but I will attempt a one-time dose of opiates in the emergency department with the understanding with the patient that he would not be prescribed dose on discharge.. Given this patient understood and agreed and after administration of opiates was given significant relief. He is comfortable going home with close follow-up with orthopedics in the a.m. for further evaluation. <Solo Hess MD - Last Filed: 04/07/24 22:26> Vital Signs: 04/07/24 19:48 04/07/24 19:51 04/07/24 20:00 Temperature 98.4 F Temperature Source Oral Pulse Rate 93 H 81 Pulse Rate [Right Radial] 87 Respiratory Rate 16 Blood Pressure 161/107 H 144/90 H Blood Pressure [Right Arm] 161/107 H Blood Pressure Mean [Right Arm] 125 Blood Pressure Source Blood Pressure Source [Right Arm] Automatic Cuff Blood Pressure Position [Right Arm] Sitting 02 Sat by Pulse Oximetry 96 95 95 Oxygen Delivery Method Room Air 04/07/24 20:30 04/07/24 21:32 Temperature 98.1 F Temperature Source Pulse Rate 86 65 Pulse Rate [Right Radial] Respiratory Rate 16 Blood Pressure 153/98 H 153/87 H Blood Pressure [Right Arm] Blood Pressure Mean [Right Arm] Blood Pressure Source Automatic Cuff Blood Pressure Source [Right Arm] Blood Pressure Position [Right Arm] 02 Sat by Pulse Oximetry 95 Oxygen Delivery Method Room Air Orders (Tests/Meds): ED MEDICATIONS Discontinued Medications Generic Name Dose Route Start Last Admin Trade Name Arnoldoq PRN Reason Stop Dose Admin Acetaminophen 1,000 mg 04/07/24 20:05 04/07/24 20:19 Acetaminophen 1,000mg/100ml Vial IV 04/07/24 20:06 1,000 mg ONCE ONE Administration Dexamethasone Sodium Phosphate 10 mg 04/07/24 20:05 04/07/24 20:19 Dexamethasone 4mg/Ml 5ml Mdv IV 04/07/24 20:06 10 mg ONCE ONE Administration Hydromorphone HCl 1 mg 04/07/24 21:00 04/07/24 21:08 Hydromorphone 2mg/Ml Syringe IV 04/07/24 21:01 1 mg ONCE ONE Administration Lactated Ringer's 1,000 mls @ 999 mls/hr 04/07/24 20:05 04/07/24 20:18 Lactated Ringer's 1000 Ml Bag IV 04/07/24 21:05 999 mls/hr .Q1H1M ONE Administration Ketorolac Tromethamine 15 mg 04/07/24 20:05 04/07/24 20:19 Ketorolac 30mg/Ml Vial IV 04/07/24 20:06 15 mg ONCE ONE Administration Lidocaine 1 each 04/07/24 20:05 04/07/24 20:23 Lidocaine 5% Transdermal Patch TP 04/07/24 20:06 1 each ONCE ONE Administration Methocarbamol 500 mg 04/07/24 20:05 04/07/24 20:19 Methocarbamol 500mg Tablet PO 04/07/24 20:06 500 mg ONCE ONE Administration ORDERS Category Date Time Status XR shoulder RT min 2V Stat Exams 04/07/24 20:05 Completed Medical Decision Narrative: In summary patient is a 53-year-old male who presents to the emergency department for evaluation of right shoulder pain. Patient is hemodynamically stable upon arrival, afebrile. Physical exam is remarkable for tenderness to range of motion however patient is neurovascular intact distally of the right upper extremity. Palpation of the joint reveals no bony deformity and no palpable biceps tendon tenderness no tenderness at the AC joint. Differential diagnosis includes rotator cuff tear versus atraumatic dislocation etc. Initial workup will be conducted with plain film x-rays. Initial interventions include crystalloid bolus Toradol Tylenol Robaxin Decadron Lidoderm patch. Initial workup reviewed by me and my informal interpretation of his plain film x-ray shows no bony misalignment no edema noted what is visible are 2 previous anchors in the humeral head. Upon repeat evaluation patient has received minimal relief with initial intervention thus I have had an interactive discussion of patient about opioid use but I will attempt a one-time dose of opiates in the emergency department with the understanding with the patient that he would not be prescribed dose on discharge.. Given this patient understood and agreed and after administration of opiates was given significant relief. He is comfortable going home with close follow-up with orthopedics in the a.m. for further evaluation. I was consulted by the OSWALDO, and we discussed the complexity of the problems being addressed. I approved the treatment and management plan for this patient's care in the Emergency Department, thus performing a substantive portion of the medical decision making. Solo Hess MD Critical Care <SCOT Flynn - Last Filed: 04/07/24 22:19> Critical Care Time Critical Care Time: No
[2024-04-07 19:48] VITALS: BP 161/107; PULSE 93; O2SAT 96
[2024-04-07 19:51] VITALS: BP 161/107; PULSE 87; RESP 16; TEMP 36.9; O2SAT 95; BMI 27.1
[2024-04-07 20:00] VITALS: BP 144/90; PULSE 81; O2SAT 95
--- NOTE | 2024-04-07 20:05 | XR_ITS ---
PROCEDURE INFORMATION: Exam: XR Right Shoulder Exam date and time: 04/07/2024 8:01 PM Age: 53 years old Clinical indication: Pain; Shoulder; Right; Additional info: Acute shoulder pain TECHNIQUE: Imaging protocol: Radiologic exam of the right shoulder. Views: 2 or more views. COMPARISON: CT SHOULDER RT W CON 04/16/2023 10:26 AM FINDINGS: Bones/joints: No fracture or dislocation. [place] screws in the right humeral head. Mild degenerative change of the glenohumeral joint. Soft tissues: Normal. IMPRESSION: No acute findings.
[2024-04-07] MEDS: LACTATED RINGERS 1000ML 1,000 ML 999 ML IV (20:18)
[2024-04-07] MEDS: METHOCARBAMOL 500MG TABLET 500 MG PO (20:19)
[2024-04-07] MEDS: DEXAMETHASONE 4MG/ML 5ML MDV 10 MG IV (20:19)
[2024-04-07] MEDS: ACETAMINOPHEN 1,000MG/100ML VIAL 1000 MG IV (20:19)
[2024-04-07] MEDS: KETOROLAC 30MG/ML VIAL 15 MG IV (20:19)
[2024-04-07] MEDS: LIDOCAINE 5% TRANSDERMAL PATCH 1 EACH TP (20:23)
[2024-04-07 20:30] VITALS: BP 153/98; PULSE 86; O2SAT 95
--- NOTE | 2024-04-07 21:03 | PC.NURSE ---
verified medication with [facility]
[2024-04-07] MEDS: HYDROMORPHONE 2MG/ML SYRINGE 1 MG IV (21:08)
[2024-04-07 21:32] VITALS: BP 153/87; PULSE 65; RESP 16; TEMP 36.7; O2SAT 95
== END 2024-04-07 21:42 | disposition home or self-care (01) ==
PROVIDERS: Emergency Provider Emergency Medicine
DX: S49.91XA Unspecified injury of right shoulder and upper arm, initial encounter (principal); M25.511 Pain in right shoulder
CPT/HCPCS: 73030; 99284; J0131; J1100; J1171; J1885; J7120

== ENCOUNTER 2024-04-27 10:32 | Outpatient (CLI) | payer OTHER, SELFPAY ==
[2024-04-27 11:16] LABS: Basophils % 0.6 % (0.1-2.0); Eosinophils # 0.1 K/mm3 (0.0-0.4); Eosinophils % 1.5 % (0.1-12.0); Hematocrit 44.9 % (42.0-52.0); Hemoglobin 15.4 g/dL (14.1-18.0); Lymphocytes # 0.9 K/mm3 (0.7-4.5); Lymphocytes % 17.1 % (10-50); Mean Corpuscular HGB Conc 34.3 g/dL (31.8-35.4); Mean Corpuscular Hemoglobin 31.9 pg (27.0-31.2); Mean Corpuscular Volume 93.1 fl (80-94); Mean Platelet Volume 8.7 fl (7.4-10.4); Monocytes # 0.3 K/mm3 (0.1-1.0); Monocytes % 6.2 % (1.7-9.3); Neutrophils # 3.8 K/mm3 (1.8-7.8); Neutrophils % 74.7 % (37.0-80.0); Platelet Count 201 K/mm3 (142-424); Red Blood Count 4.83 M/mm3 (4.60-6.20); Red Cell Distribution Width 14.2 % (11.5-17.5)
[2024-04-27 11:45] LABS: Albumin Level 4.7 g/dl (3.5-5.0); Chloride 105 mmol/L (98-107); Potassium 4.6 mmoL/L (3.5-5.1); Sodium 139 mmol/L (136-145)
[2024-04-27 11:47] LABS: Blood Urea Nitrogen 10 mg/dl (9-20); Estimated Glomerular Filt Rate 89 ml/min (>60); GFR (African American) 108 ML/MIN (>60)
[2024-04-27 11:48] LABS: Alanine Aminotransferase 147 U/L (12-78); Alkaline Phosphatase 118 U/L (38-126); Anion Gap 9.6 mEq/L (5-15); Aspartate Amino Transferase 96 U/L (17-59); Bilirubin,Direct 0.3 mg/dl (0.0-0.4); Bilirubin,Indirect 0.5 mg/dL (0.0-0.9); Bilirubin,Total 0.8 mg/dl (0.2-1.3); Bilirubin,Unconjugated 0.5 mg/dL (0.0-1.1); Calcium 9.8 mg/dl (8.4-10.2); Carbon Dioxide 29 mmol/L (22.0-30.0); Cholesterol 285 mg/dl (140-200); Glucose 116 mg/dl (74-100); Magnesium 2.2 mg/dl (1.6-2.3); Total Protein,Serum 7.3 g/dl (6.3-8.2); Triglycerides 367 mg/dl (30-150); VLDL Cholesterol 73 mg/dL (0-40)
[2024-04-27 11:49] LABS: Chol/HDL Ratio 5.2 (1-3.5); HDL Cholesterol 55 mg/dl (40-60)
[2024-04-27 12:02] LABS: Free T4 (Free Thyroxine) 0.62 ng/dl (0.78-2.19)
== END 2024-04-27 23:59 | disposition home or self-care (01) ==
LOC: LAB 10:33
PROVIDERS: PCP Nurse Practitioner; Visit Provider Physician Assistant
DX: I34.0 Nonrheumatic mitral (valve) insufficiency (principal); I07.1 Rheumatic tricuspid insufficiency; Z95.0 Presence of cardiac pacemaker; R06.09 Other forms of dyspnea; R60.9 Edema, unspecified; R94.31 Abnormal electrocardiogram [ECG] [EKG]; G47.33 Obstructive sleep apnea (adult) (pediatric); I10 Essential (primary) hypertension; Z72.0 Tobacco use
CPT/HCPCS: 36415; 80048; 80061; 80076; 83735; 84439; 84443; 85025

== ENCOUNTER 2024-04-30 12:43 | Outpatient (POV) | payer OTHER, SELFPAY ==
[2024-04-30 13:25] VITALS: BP 126/78; PULSE 83; RESP 18; O2SAT 95; BMI 27.8
--- NOTE | 2024-04-30 14:28 | A.OFFVIS_ITS ---
[facility] Disclaimer: The information contained in this section may have been updated after the patient was seen, as this information can be updated by other users. Medical History (Updated 04/27/24 @ 10:18 by Dion Leonard RN) Edema Tricuspid regurgitation Mitral regurgitation Hx of cardiac pacemaker Abnormal electrocardiogram [ECG] [EKG] HARRISON (obstructive sleep apnea) Hypertension Shortness of Breath Chest pain Generalized anxiety disorder Major depressive disorder SVT (supraventricular tachycardia) Palpitations Cardiac pacemaker in situ Surgical History Hx of appendectomy History of back surgery History of right shoulder replacement Hx of left knee surgery Family History Other Cancer Heart attack Unknown family medical history Social History Smoking Status: Current every day smoker tobacco type: e-cigarettes and smokeless tobacco second hand exposure: No alcohol intake: current alcohol intake frequency: a few times a week substance use type: denies use current occupational status: employed Travel in the last 8 weeks: None household members: spouse and family housing: house marital status: number of children: 2 current occupational exposures/hazards: No caffeine: Yes PM Subjective & Objective Subjective Subjective:: Patient is a pleasant 53-year-old male who presents today for worsening pain. Patient does state his pain is all in his neck with radiating numbness and tingling down both of his arms that does go into his thumbs and index fingers bilaterally. Patient states the pain is constant and does interfere with his ability perform activities of daily living such as cooking and cleaning. Patient has tried and failed conservative therapy including continued at home stretching exercise for longer than 12 weeks. Patient was submitted for a cervical epidural however was having some insurance related problems and ended up having a denial at 1 point however does state that he would like to proceed forward with this plan of care. He states the pain is severe and nothing seems to be helping. His Santosh has been reviewed and is appropriate. Review of Systems: General: No recent weight changes, no fever, no sleep disturbances Respiratory: No cough, no shortness of air, no recurring pulmonary infections Cardiovascular/peripheral vascular: No chest pain, no palpitations, no edema, no shortness of breath Gastrointestinal: No new onset incontinence, normal bowel movements reported Genitourinary: No new onset incontinence Musculoskeletal: Neck pain, bilateral arm numbness tingling Psychiatric: [Normal mood/affect] Neurological: [Denies weakness in extremities], [denies balance issues] Pain at rest (0-10 scale): 10 Objective Objective:: Physical Exam: General: Alert and oriented x3, no acute distress, pleasant and cooperative Lungs: Respirations even and unlabored, symmetrical chest expansion Eyes: PERRL Musculoskeletal: Flexion and extension of cervical [spine] somewhat guarded secondary to pain, [antalgic gait noted] positive Spurling's test Neurological: Speech clear, no gross sensory deficit Has patient had previous pain injection?: No Conservative treatment options previously tried: Home exercise plan Length of treatment: Longer than 12 weeks Meds Home Medications and Allergies Home Medications ?Medication ?Instructions ?Recorded ?Confirmed ?Type alprazolam 1 mg tablet (Xanax) 1 mg PO QID Anxiety 02/06/19 04/30/24 History valsartan 160 mg tablet 160 mg PO DAILY Hypertension #90 07/04/23 04/30/24 Rx tabs vortioxetine 20 mg tablet 20 mg PO DAILY Depression #90 tabs 12/05/23 04/30/24 Rx (Trintellix) testosterone cypionate 200 mg/mL 200 mg IM QMONTH 01/06/24 04/30/24 History intramuscular oil baclofen 10 mg tablet 10 mg PO TID #42 tabs 03/16/24 04/30/24 Rx metoprolol succinate 25 mg 25 mg PO DAILY #30 tabs 04/16/24 04/30/24 Rx tablet,extended release 24 hr (Toprol XL) chlorthalidone 25 mg tablet 25 mg PO DAILY #30 tabs 04/27/24 04/30/24 Rx New Prescriptions to Start Prescriptions: Allergies Allergy/AdvReac Type Severity Reaction Status Date / Time Tricyclic Antidepressants Allergy Unknown Verified 04/27/24 09:43 and Tricy [TRICYCLIC COMPOUNDS] metoprolol AdvReac fatigue Verified 04/27/24 09:43 Assessment and Plan *Assessment and plan (1) Cervical radiculopathy: Status: Acute Category: Medical Code(s): M54.12 - Radiculopathy, cervical region (2) Degenerative joint disease of cervical spine: Status: Acute Qualifiers: Spinal osteoarthritis complication: with radiculopathy Qualified Code(s): M47.22 - Other spondylosis with radiculopathy, cervical region Category: Medical Code(s): M47.812 - Spondylosis without myelopathy or radiculopathy, cervical region (3) Neck pain: Status: Acute Category: Medical Code(s): M54.2 - Cervicalgia Plan Patient is experiencing severe pain throughout his neck with radiating numbness and tingling into his upper extremities bilaterally. Patient was counseled again over the risk and benefits of the cervical epidural and he would like to proceed forward with this plan of care. Patient has tried and failed conservative therapy including continued at home stretching exercise for longer than 12 weeks. Patient will be submitted for a FABRICIO C5-C6 under fluoroscopy. Patient has been instructed to contact the clinic with any concerns before the next appointment. Dr. Saxena has reviewed this note and agrees with this plan of care. This note was dictated using voice recognition software and make contain errors or omissions. All injections are used with Lidocaine or Bupivacaine and Depo Medrol.
== END 2024-04-30 23:59 | disposition home or self-care (01) ==
LOC: SC.PAIN 12:44
PROVIDERS: PCP Nurse Practitioner; Visit Provider Nurse Practitioner Family
DX: M47.22 Other spondylosis with radiculopathy, cervical region (principal); M54.2 Cervicalgia; Z95.0 Presence of cardiac pacemaker; U07.0 Vaping-related disorder; F17.220 Nicotine dependence, chewing tobacco, uncomplicated; Z73.89 Other problems related to life management difficulty
CPT/HCPCS: 99212; G0463

== ENCOUNTER 2024-05-01 10:08 | Outpatient (CLI) | payer OTHER, SELFPAY ==
--- NOTE | 2024-05-01 10:10 | CA_ITS ---
APPROVED REPORT EXAM: Comprehensive 2D, Doppler, and color-flow Echocardiogram Ekg Monitor: Katherine Crawley RVT Ht: 5 ft 11 in Wt: 201lbs BSA: 2.11 BP: 162/92 mmHg Indications: DYSPENA,PACER,CP,HARRISON,SMOKER,ABN EKG,EDEMA,HTN 2D Dimensions LA Volume 25.20 mL LA Volume Index 11.89 mL/m2 (M/F) 16-34 M-Mode Dimensions RVDd 2.37 cm (0.9-2.6) LA Diam 3.16 cm (1.9-4.0) LVDd 4.26 cm (3.5-5.7) LVDs 2.57 cm (3.5-5.7) IVSd 0.80 cm (0.6-1.1) PWd 0.67 cm (0.6-1.1) EF (Teich) 70.60% FS 39.70% EDV (Teich) 81.30 mL ESV (Teich) 23.90 mL LV Diastology E Decel Time 200 (160-240 msec) E/A Ratio 0.9 Aortic Valve RAUDEL Index 1.43 cm2/m2 AoV Peak Jose R. 124.0 (50-130 cm/s) AO Peak GR. 6.20 mmHg AO Mean GR. 2.90 (<5 mmHg) AO VTI 18.6 (18-25 cm) RAUDEL (VTI) 3.08 (2.5-4.5 cm2) Mitral Valve MV E Max Jose R. 52.0 (40-130 cm/s) MV A Velocity 55.0 (40-130 cm/s) E/A Ratio 0.94 MV PHT 59.0 ms Pulmonary Valve PV Peak Velocity 107.0 (50-150 cm/s) Tricuspid Valve TR P. Velocity 272.00 cm/s RAP Estimate 10.00 mmHg RVSP 39.70 mmHg Left Ventricle The left ventricle is normal size. The left ventricular systolic function is normal. The left ventricular ejection fraction is within the normal range. Proximal septal thickening is noted. There is normal LV segmental wall motion. The left ventricular diastolic function is normal. LVEF is 55%. Right Ventricle The right ventricle is normal size. The right ventricular systolic function is normal. A device lead is present in the right ventricle. Atria The left atrium size is normal. The right atrium size is normal. There is no Doppler evidence of interatrial shunt. Aortic Valve The aortic valve opens well. There is no aortic valvular stenosis. No aortic regurgitation is present. Mitral Valve The mitral valve is normal in structure. No evidence of mitral valve stenosis. Trace mitral regurgitation. Tricuspid Valve Tricuspid valve is grossly normal in structure and function. Trace tricuspid regurgitation. There is insufficient TR jet to estimate RVSP. Pulmonic Valve The pulmonary valve is normal in structure. Trace pulmonic regurgitation. Great Vessels The aortic root is normal in size. The ascending aorta is mildly dilated, measuring 4.0 cm in diameter. IVC is normal in size and collapses >50% with inspiration. Pericardium There is no pericardial effusion. Other Information Study Quality: Fair Conclusion Normal biventricular systolic function. No significant valvular stenosis or regurgitation. Mildly dilated ascending aorta 4.0 cm. In the setting of dilated ascending aorta on TTE, correlation with recent or new CTA chest is recommended. Electronically signed by : Usha Ceja MD 05/08/2024 13:58:32
--- NOTE | 2024-05-01 10:11 | US_ITS ---
PROCEDURE INFORMATION: Exam: US Left Limited Joint or Other Non-Vascular Extremity Structure Exam date and time: 05/01/2024 10:16 AM Age: 53 years old Clinical indication: Pain; Lower leg; Left; Additional info: Lower lt achilles tendinitis TECHNIQUE: Imaging protocol: US left limited joint or other nonvascular extremity structure. Real-time ultrasound with image documentation. Exam focused on the area of clinical interest. COMPARISON: No relevant prior studies available. FINDINGS: Soft tissues: Sonography of the LEFT Achilles tendon at the site of pain demonstrates complex hypoechoic area versus fluid collection measuring 1.7 x 0.5 x 1.1 cm adjacent to/within the deep margin-fibers of the tendon without evidence of a full-thickness tear. IMPRESSION: 1. Complex soft tissue versus fluid collection adjacent to/within the deep margin-fibers of the LEFT Achilles tendon suspicious for acute tendinitis without evidence of a full-thickness tear. 2. Recommend MRI for further evaluation-characterization.
== END 2024-05-01 23:59 | disposition home or self-care (01) ==
LOC: RAD 10:08
PROVIDERS: PCP Nurse Practitioner; Visit Provider Nurse Practitioner
DX: M76.62 Achilles tendinitis, left leg (principal); I34.0 Nonrheumatic mitral (valve) insufficiency; I07.1 Rheumatic tricuspid insufficiency; Z95.0 Presence of cardiac pacemaker; R06.09 Other forms of dyspnea; R60.9 Edema, unspecified; R94.31 Abnormal electrocardiogram [ECG] [EKG]
CPT/HCPCS: 76882; 93306

== ENCOUNTER 2024-05-19 08:33 | Day surgery (SDC) | payer OTHER, SELFPAY ==
[2024-05-19 08:47] VITALS: BP 171/85; PULSE 65; RESP 16; TEMP 36.8; O2SAT 98; BMI 27.3
--- NOTE | 2024-05-19 09:02 | P.PCN_ITS ---
Procedure Date: 05/19/24 Time: 09:05 Anesthesiologist:: Vincent Ahuja CRNA Complications:: None Pre-procedure Diagnosis:: Degenerative disc cervical spine multilevels. Cervical radiculopathy. Post-procedure Diagnosis:: Same. Indications for Procedure:: Patient is a very pleasant 53-year-old male who comes our clinic today for cervical epidural steroid injection C6-7 level. Patient describes cervical neck pain as well as bilateral shoulder left greater than right and left arm radicular symptoms. He rates his pain 8/10. Procedure Details:: Procedure:Cervical epidural steroid injection Informed consent was obtained and the risks and benefits of the procedure were explained to the patient. The patient was taken to the procedure room and noninvasive monitors placed, including noninvasive blood pressure cuff and pulse oximeter. The neck was prepped using Chloraprep as a cleansing solution. The C6- C7 interspace was viewed using fluroscopy. The skin and subcutaneous tissues were anesthetized using lidocaine 1.5% and a 25-gauge needle. After this an 18- gauge Touhy epidural needle was placed into the C6-C7 interspace under fluroscopy guidance and advanced using loss of resistance to air until the epidural space was encountered. After confirmation of needle placement in the epidural space using contrast dye, a solution containing normal saline, 2 mL and Depo-Medrol 80 mg was incrementally injected into the cervical epidural space.~ The patient tolerated the procedure well with no complications. The patient was observed in the Pain Clinic and then discharged home neurologically intact. Plan and Disposition:: Patient was discharged without incident.
[2024-05-19 09:06] VITALS: BP 178/93; PULSE 59; RESP 18; O2SAT 95
[2024-05-19] MEDS: methylPREDNISolone ACETATE 80MG/ML VIAL 80 MG (09:06)
[2024-05-19 09:07] VITALS: BP 178/93; PULSE 59; RESP 18; O2SAT 95
[2024-05-19] MEDS: IOPAMIDOL-200 (41%);10ML VIAL 10 ML IV (09:07)
[2024-05-19 09:14] VITALS: BP 159/99; PULSE 61; RESP 16; O2SAT 98
== END 2024-05-19 09:14 | disposition home or self-care (01) ==
PROVIDERS: PCP Nurse Practitioner; Visit Provider Nurse Practitioner Family
DX: M50.30 Other cervical disc degeneration, unspecified cervical region (principal); M54.12 Radiculopathy, cervical region
CPT/HCPCS: 62321; J1010; Q9966

== ENCOUNTER 2024-05-21 10:26 | Outpatient (CLI) | payer OTHER, SELFPAY ==
--- NOTE | 2024-05-21 10:27 | CT_ITS ---
FINAL REPORT TECHNIQUE: Then section axial CT images of the chest were obtained with contrast. Three-D reformatted images were also obtained.This study was performed with techniques to keep radiation doses as low as reasonably achievable (ALARA). Individualized dose reduction techniques using automated exposure control or adjustment of mA and/or kV according to the patient''s size were employed. CLINICAL HISTORY: .ASCENDING AORTA DILATION COMPARISON: 04/10/2022 FINDINGS: There is no evidence of pulmonary embolism. The ascending aorta is ectatic at 35 mm. This is stable compared to the prior exam. There is no evidence of ascending aortic dissection. There is no evidence of mediastinal or hilar mass or adenopathy. There is no pleural effusion. There is no evidence of pulmonary mass or suspicious nodule. There is mild biapical scarring. Bibasilar atelectasis is noted. There is a calcified granuloma in the right lower lobe. No localized inflammatory process is seen within the lungs. Limited images of the upper abdomen are unremarkable. IMPRESSION: Stable, ectasia of the ascending aorta at 35 mm. No acute pulmonary abnormality. Reviewed, Interpreted and Dictated by Steven Jones III, MD Transcribed by Cami Ziegler Authenticated and [facility]
[2024-05-21] MEDS: 0.9 % SODIUM CHLORIDE 50 ML VIAL IV (11:09)
[2024-05-21] MEDS: SODIUM CHLORIDE 0.9% 10ML SYR (RAD ONLY) 10 ML IV (11:09)
[2024-05-21] MEDS: IOPAMIDOL-370 (76%);100ML BOTTLE 100 ML IV (11:09)
== END 2024-05-21 23:59 | disposition home or self-care (01) ==
LOC: RAD 10:27
PROVIDERS: PCP Nurse Practitioner; Visit Provider Physician Assistant
DX: I77.810 Thoracic aortic ectasia (principal); R07.89 Other chest pain
CPT/HCPCS: 71275; Q9967

== ENCOUNTER 2024-06-01 10:17 | Emergency (ER) | payer OTHER, SELFPAY ==
[2024-06-01 10:27] VITALS: BP 149/92; PULSE 64; RESP 18; TEMP 37; O2SAT 95; BMI 27.8
[2024-06-01 10:31] VITALS: BP 151/98; PULSE 69; O2SAT 96
--- NOTE | 2024-06-01 10:31 | XR_ITS ---
FINAL REPORT CLINICAL HISTORY: thumb crush injury FINDINGS: AP, lateral and oblique views of the right hand were obtained. There is no prior exam for comparison. There is no acute fracture or dislocation. Deformity of the 5th metacarpal is unchanged. The joint spaces are preserved. There is mild soft tissue edema of the thumb. No radiopaque foreign body identified. IMPRESSION: Soft tissue edema of the thumb without acute osseous abnormality of the right hand. Reviewed, Interpreted and Dictated by Liz Gandara MD Transcribed by Katy Moran Authenticated and . [facility]
--- NOTE | 2024-06-01 10:32 | HMH.EDGENADL ---
Discharge Plan Disposition Chief Complaint: PAIN Prescriptions Prescriptions: No Action alprazolam [Xanax] 1 mg tablet 1 mg PO QID Patient Comments: previously given before seeing tru harper 02-06-19 valsartan 160 mg tablet 160 mg PO DAILY Qty: 90 3RF testosterone cypionate 200 mg/mL oil 200 mg IM QMONTH Patient Comments: INJECT 1 ML (CC) INTRAMUSCULARLY ONCE EVERY MONTH chlorthalidone 25 mg tablet 25 mg PO DAILY Qty: 30 2RF Trintellix 20 mg tablet 20 mg PO DAILY Qty: 90 1RF metoprolol succinate [Toprol XL] 25 mg tablet extended release 24 hr 25 mg PO DAILY Qty: 30 5RF baclofen 10 mg tablet 10 mg PO TID Qty: 42 0RF Referrals Follow up/Referrals: Melony Adame APRN [Primary Care Provider] - See instructions Luke Blandon DO [Staff Physician] - See instructions Activity Restrictions/Add. Instructions Additional Instructions/Restrictions: No evidence of fracture or dislocation on x-ray. However you have a significant soft tissue crush injury please follow-up with Dr. Blandon our orthopedic surgeon if you are not improving in 1 week for consideration of an outpatient MRI and further management. Wear your splint as needed for comfort. Clinical Impressions Clinical Impression: Hematoma, subungual, thumb, right, Crush injury to thumb Print Language Print Language: Barbadian Discharge ED Provider: Jed Messina General Adult HPI General Chief complaint: PAIN Stated complaint: AO-05/31/24 1300, pain, swelling, bruise R thumb Time Seen by Provider: 06/01/24 10:28 History of Present Illness HPI narrative: Patient is a 53-year-old male present today with a crush injury to the right thumb. This occurred while working with a trailer. This happened yesterday evening has had significant pain and swelling of the distal aspect of his thumb. Related Data Home Medications ?Medication ?Instructions ?Recorded ?Confirmed alprazolam 1 mg tablet (Xanax) 1 mg PO QID Anxiety 02/06/19 05/19/24 testosterone cypionate 200 mg/mL 200 mg IM QMONTH 01/06/24 05/19/24 intramuscular oil Previous Rx's ?Medication ?Instructions ?Recorded valsartan 160 mg tablet 160 mg PO DAILY Hypertension #90 07/04/23 tabs baclofen 10 mg tablet 10 mg PO TID #42 tabs 03/16/24 metoprolol succinate 25 mg 25 mg PO DAILY #30 tabs 04/16/24 tablet,extended release 24 hr (Toprol XL) chlorthalidone 25 mg tablet 25 mg PO DAILY #30 tabs 04/27/24 vortioxetine 20 mg tablet 20 mg PO DAILY Depression #90 tabs 05/28/24 (Trintellix) Allergies Allergy/AdvReac Type Severity Reaction Status Date / Time Tricyclic Antidepressants Allergy Unknown Verified 04/27/24 09:43 and Tricy (TRICYCLIC COMPOUNDS) metoprolol AdvReac fatigue Verified 04/27/24 09:43 [facility] Disclaimer: The information contained in this section may have been updated after the patient was seen, as this information can be updated by other users. Medical History (Updated 06/01/24 @ 10:32 by Jed Messina MD) Ascending aorta dilation Edema Tricuspid regurgitation Mitral regurgitation Hx of cardiac pacemaker Abnormal electrocardiogram [ECG] [EKG] HARRISON (obstructive sleep apnea) Hypertension Shortness of Breath Chest pain Generalized anxiety disorder Major depressive disorder SVT (supraventricular tachycardia) Palpitations Cardiac pacemaker in situ Surgical History Hx of appendectomy History of back surgery History of right shoulder replacement Hx of left knee surgery Family History Other Cancer Heart attack Unknown family medical history Social History Smoking Status: Current every day smoker tobacco type: e-cigarettes and smokeless tobacco second hand exposure: No alcohol intake: current alcohol intake frequency: a few times a week substance use type: denies use current occupational status: employed household members: spouse and family housing: house marital status: number of children: 2 current occupational exposures/hazards: No caffeine: Yes Other Medical History Have you received the Flu Vaccine for this season: No Have you received the Pneumonia Vaccine: No ROS Obtained: Yes All systems reviewed & no additional complaints except as documented Physical Exam General General appearance: alert and in no apparent distress Respiratory Respiratory exam: Present normal lung sounds bilaterally and respiratory distress Cardiovascular Cardiovascular exam: Present regular rate Extremities Exam Extremities exam: Present other (Right hand patient has normal neurovascular exam significant swelling over the distal phalanx of the right thumb he has a 100% subungual hematoma with soft tissue swelling surrounding) Neurological Exam Neurological exam: Present alert and oriented X3 Medical Decision Making Medical Records Screening: Per USPSTF and CDC recommendations, given the prevalence of disease in our region, it is our hospital?s policy to screen for HIV and viral Hepatitis for all patients aged 18 and over and those with ongoing risk factors. Santosh Inquiry Pt receiving controlled substance: No Vital Signs: 06/01/24 10:27 06/01/24 10:31 06/01/24 11:00 Temperature 98.6 F Temperature Source Oral Pulse Rate 69 67 Pulse Rate [Left Radial] 64 Respiratory Rate 18 Blood Pressure 151/98 H 154/99 H Blood Pressure [Left Arm] 149/92 H Blood Pressure Mean [Left Arm] 111 02 Sat by Pulse Oximetry 95 96 94 L Oxygen Delivery Method Room Air Room Air 06/01/24 11:30 Temperature Temperature Source Pulse Rate 71 Pulse Rate [Left Radial] Respiratory Rate Blood Pressure 140/85 Blood Pressure [Left Arm] Blood Pressure Mean [Left Arm] 02 Sat by Pulse Oximetry 92 L Oxygen Delivery Method Room Air Orders (Tests/Meds): ORDERS Category Date Time Status Hand XR right minimum 3 views [XR hand RT min 3V] Stat Exams 06/01/24 10:31 Completed Medical Decision Narrative: Patient with above history and physical has a large subungual hematoma will need to be trephinated. Will get a plain film also to rule out any associated bony injury and will reassess. X-ray performed which I personally interpreted which shows no fractures or dislocations Thumb was successfully trephinated he was given a splint advised to follow-up with Dr. Blandon is not improving for possible outpatient MRI Procedures Miscellaneous Procedure Procedure Performed: Thumb trephination Indication 100% subungual hematoma Patient was consented small hole was created hematoma was evacuated utilizing electrocautery with significant improvement in symptoms. Critical Care Critical Care Time Critical Care Time: No
[2024-06-01 11:00] VITALS: BP 154/99; PULSE 67; O2SAT 94
[2024-06-01 11:30] VITALS: BP 140/85; PULSE 71; O2SAT 92
[2024-06-01 11:59] VITALS: BP 142/94; PULSE 70; RESP 18; TEMP 37; O2SAT 98
== END 2024-06-01 12:09 | disposition home or self-care (01) ==
PROVIDERS: Emergency Provider Student in an Organized Health Care Education/Training Program; PCP Nurse Practitioner
DX: S60.111A Contusion of right thumb with damage to nail, initial encounter (principal); S67.00 Crushing injury of unspecified thumb; M79.644 Pain in right finger(s); X58.XXXA Exposure to other specified factors, initial encounter; Y93.9 Activity, unspecified; Y92.9 Unspecified place or not applicable
CPT/HCPCS: 73130; 99283

== ENCOUNTER 2024-06-10 10:40 | Outpatient (POV) | payer OTHER, SELFPAY ==
--- NOTE | 2024-06-10 10:55 | A.OFFVIS_ITS ---
[facility] Disclaimer: The information contained in this section may have been updated after the patient was seen, as this information can be updated by other users. Medical History (Updated 06/01/24 @ 10:32 by Jed Messina MD) Ascending aorta dilation Edema Tricuspid regurgitation Mitral regurgitation Hx of cardiac pacemaker Abnormal electrocardiogram [ECG] [EKG] HARRISON (obstructive sleep apnea) Hypertension Shortness of Breath Chest pain Generalized anxiety disorder Major depressive disorder SVT (supraventricular tachycardia) Palpitations Cardiac pacemaker in situ Surgical History Hx of appendectomy History of back surgery History of right shoulder replacement Hx of left knee surgery Family History Other Cancer Heart attack Unknown family medical history Social History (Updated 06/01/24 @ 11:59 by Jed Messina MD) Smoking Status: Current every day smoker tobacco type: e-cigarettes and smokeless tobacco second hand exposure: No alcohol intake: current alcohol intake frequency: a few times a week substance use type: denies use current occupational status: employed Travel in the last 8 weeks: None household members: spouse and family housing: house marital status: number of children: 2 current occupational exposures/hazards: No caffeine: Yes PM Subjective & Objective Subjective Subjective:: Patient is a pleasant 53-year-old male who presents today for follow-up of cervical epidural steroid injection C6-C7 on 05/19/2024. Today he rates his pain a 5 out of 10. Patient states he did have at least 75% improvement following this injection and feels like it is still helping. Patient states that he has been able to increase his activity and feels much more functional. He does state that the numbness and tingling he was feeling has improved as well. Patient states that he is starting to feel a little bit more pain sensations from when this was initially done however this is still very manageable and denies any other changes. His Santosh has been reviewed and is appropriate. Review of Systems: General: No recent weight changes, no fever, no sleep disturbances Respiratory: No cough, no shortness of air, no recurring pulmonary infections Cardiovascular/peripheral vascular: No chest pain, no palpitations, no edema, no shortness of breath Gastrointestinal: No new onset incontinence, normal bowel movements reported Genitourinary: No new onset incontinence Musculoskeletal: Neck pain Psychiatric: [Normal mood/affect] Neurological: [Denies weakness in extremities], [denies balance issues] Pain at rest (0-10 scale): 5 Objective Objective:: Physical Exam: General: Alert and oriented x3, no acute distress, pleasant and cooperative Lungs: Respirations even and unlabored, symmetrical chest expansion Eyes: PERRL Musculoskeletal: Flexion and extension of cervical [spine] somewhat guarded secondary to pain, [antalgic gait noted] Neurological: Speech clear, no gross sensory deficit Has patient had previous pain injection?: Yes Percent improvement in pain since last injection: 90% Conservative treatment options previously tried: Home exercise plan Length of treatment: Longer than 12 weeks Meds Home Medications and Allergies Home Medications ?Medication ?Instructions ?Recorded ?Confirmed ?Type alprazolam 1 mg tablet (Xanax) 1 mg PO QID Anxiety 02/06/19 05/19/24 History valsartan 160 mg tablet 160 mg PO DAILY Hypertension #90 07/04/23 05/19/24 Rx tabs testosterone cypionate 200 mg/mL 200 mg IM QMONTH 01/06/24 05/19/24 History intramuscular oil baclofen 10 mg tablet 10 mg PO TID #42 tabs 03/16/24 05/19/24 Rx metoprolol succinate 25 mg 25 mg PO DAILY #30 tabs 04/16/24 05/19/24 Rx tablet,extended release 24 hr (Toprol XL) chlorthalidone 25 mg tablet 25 mg PO DAILY #30 tabs 04/27/24 05/19/24 Rx vortioxetine 20 mg tablet 20 mg PO DAILY Depression #90 tabs 05/28/24 05/28/24 Rx (Trintellix) New Prescriptions to Start Prescriptions: Allergies Allergy/AdvReac Type Severity Reaction Status Date / Time Tricyclic Antidepressants Allergy Unknown Verified 04/27/24 09:43 and Tricy (TRICYCLIC COMPOUNDS) metoprolol AdvReac fatigue Verified 04/27/24 09:43 Assessment and Plan *Assessment and plan (1) Cervical radiculopathy: Status: Acute Category: Medical Code(s): M54.12 - Radiculopathy, cervical region (2) Neck pain: Status: Acute Category: Medical Code(s): M54.2 - Cervicalgia (3) Degenerative joint disease of cervical spine: Status: Acute Qualifiers: Spinal osteoarthritis complication: with radiculopathy Qualified Code(s): M47.22 - Other spondylosis with radiculopathy, cervical region Category: Medical Code(s): M47.812 - Spondylosis without myelopathy or radiculopathy, cervical region Plan Patient has had significant improvement following his cervical epidural and does not require any additional injection therapy at this time. Patient will return to clinic in 2 months for reevaluation of symptoms and plan of care. Patient has been instructed to contact the clinic with any concerns before the next appointment. Dr. Saxena has reviewed this note and agrees with this plan of care. This note was dictated using voice recognition software and make contain errors or omissions. All injections are used with Lidocaine or Bupivacaine and Depo Medrol.
[2024-06-10 11:28] VITALS: BP 167/94; PULSE 74; RESP 16; O2SAT 96; BMI 27.8
== END 2024-06-10 23:59 | disposition home or self-care (01) ==
LOC: SC.PAIN 10:40
PROVIDERS: PCP Nurse Practitioner; Visit Provider Nurse Practitioner Family
DX: M54.2 Cervicalgia (principal); M47.22 Other spondylosis with radiculopathy, cervical region; Z96.611 Presence of right artificial shoulder joint; U07.0 Vaping-related disorder
CPT/HCPCS: 99212; G0463

== ENCOUNTER 2024-07-09 10:12 | Outpatient (POV) | payer OTHER, SELFPAY ==
--- NOTE | 2024-07-09 11:05 | EXP.PAIN.SOA ---
[facility] Disclaimer: The information contained in this section may have been updated after the patient was seen, as this information can be updated by other users. Medical History (Updated 06/01/24 @ 10:32 by Jed Messina MD) Ascending aorta dilation Edema Tricuspid regurgitation Mitral regurgitation Hx of cardiac pacemaker Abnormal electrocardiogram [ECG] [EKG] HARRISON (obstructive sleep apnea) Hypertension Shortness of Breath Chest pain Generalized anxiety disorder Major depressive disorder SVT (supraventricular tachycardia) Palpitations Cardiac pacemaker in situ Surgical History Hx of appendectomy History of back surgery History of right shoulder replacement Hx of left knee surgery Family History Other Cancer Heart attack Unknown family medical history Social History (Updated 06/01/24 @ 11:59 by Jed Messina MD) Smoking Status: Current every day smoker tobacco type: e-cigarettes and smokeless tobacco second hand exposure: No alcohol intake: current alcohol intake frequency: a few times a week substance use type: denies use current occupational status: other Travel in the last 8 weeks: None household members: spouse and family housing: house marital status: number of children: 2 current occupational exposures/hazards: No caffeine: Yes PM Subjective & Objective Subjective Subjective:: Patient is a pleasant 53-year-old male who presents today for worsening pain. Today he rates his pain a 9 out of 10. He does state that his cervical epidural has officially worn off completely. He denies any new trauma or injury. He does state that the pain is all still in his neck with radiating numbness and tingling into his upper extremities. He does state the pain interferes with his ability perform activities of daily living such as cooking or cleaning or even simple ambulation. 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 He states the pain just continues to progress. His Santosh has been reviewed and is appropriate. Review of Systems: General: No recent weight changes, no fever, no sleep disturbances Respiratory: No cough, no shortness of air, no recurring pulmonary infections Cardiovascular/peripheral vascular: No chest pain, no palpitations, no edema, no shortness of breath Gastrointestinal: No new onset incontinence, normal bowel movements reported Genitourinary: No new onset incontinence Musculoskeletal: Neck pain, upper extremity numbness tingling Psychiatric: [Normal mood/affect] Neurological: [Denies weakness in extremities], [denies balance issues] Pain at rest (0-10 scale): 9 Objective Objective:: Physical Exam: General: Alert and oriented x3, no acute distress, pleasant and cooperative Lungs: Respirations even and unlabored, symmetrical chest expansion Eyes: PERRL Musculoskeletal: Flexion and extension of cervical [spine] somewhat guarded secondary to pain, [antalgic gait noted] positive Spurling's test Neurological: Speech clear, no gross sensory deficit Has patient had previous pain injection?: No Conservative treatment options previously tried: Home exercise plan Length of treatment: Longer than 12 weeks Meds Home Medications and Allergies Home Medications ?Medication ?Instructions ?Recorded ?Confirmed ?Type alprazolam 1 mg tablet (Xanax) 1 mg PO QID Anxiety 02/06/19 06/11/24 History valsartan 160 mg tablet 160 mg PO DAILY Hypertension #90 07/04/23 06/11/24 Rx tabs testosterone cypionate 200 mg/mL 200 mg IM QMONTH 01/06/24 06/11/24 History intramuscular oil baclofen 10 mg tablet 10 mg PO TID #42 tabs 03/16/24 06/11/24 Rx metoprolol succinate 25 mg 25 mg PO DAILY #30 tabs 04/16/24 06/11/24 Rx tablet,extended release 24 hr (Toprol XL) chlorthalidone 25 mg tablet 25 mg PO DAILY #30 tabs 04/27/24 06/11/24 Rx vortioxetine 20 mg tablet 20 mg PO DAILY Depression #90 tabs 05/28/24 06/10/24 Rx (Trintellix) New Prescriptions to Start Prescriptions: Allergies Allergy/AdvReac Type Severity Reaction Status Date / Time Tricyclic Antidepressants Allergy Unknown Verified 04/27/24 09:43 and Tricy (TRICYCLIC COMPOUNDS) metoprolol AdvReac fatigue Verified 04/27/24 09:43 Assessment and Plan *Assessment and plan (1) Cervical radiculopathy: Status: Acute Category: Medical Code(s): M54.12 - Radiculopathy, cervical region (2) Neck pain: Status: Acute Category: Medical Code(s): M54.2 - Cervicalgia (3) Degenerative joint disease of cervical spine: Status: Acute Qualifiers: Spinal osteoarthritis complication: with radiculopathy Qualified Code(s): M47.22 - Other spondylosis with radiculopathy, cervical region Category: Medical Code(s): M47.812 - Spondylosis without myelopathy or radiculopathy, cervical region Plan Patient is experiencing worsening pain in his neck with radiating numbness and tingling into his upper extremities. Patient did have limited range of motion of his cervical spine and a positive Spurling's test. I did review over the risk and benefits of repeat cervical epidural and he would like to proceed forward with this plan of care. Patient did have his last epidural on May 19 with 75% relief and it did last more than 1 full month. Patient had improved function with decreased pain. I did head counselor him that we will plan on repeating the prior injection and the beginning of August. Patient agrees with this plan of care. Patient has continued conservative treatment including oral medications, heat and ice, topicals, at home stretching exercise for longer than 12 weeks and in between injections. I did also review with the patient due to the chronic pain and worsening symptoms that he may be a candidate for a pump or a stimulator trial. We will follow-up with this at future visits. Patient did take brochures of both of these devices during today's appointment. Patient will be scheduled for repeat FABRICIO C6-C7 under fluoroscopy. Patient is not on any blood thinners. I will also send in a new prescription of Skelaxin 800 mg 3 times daily as needed. Patient has been instructed to contact the clinic with any concerns before the next appointment. Dr. Saxena has reviewed this note and agrees with this plan of care. This note was dictated using voice recognition software and make contain errors or omissions. All injections are used with Lidocaine, Bupivacaine and Depo Medrol. Occasionally urine drug screen is needed to verify patient's compliance with our office pain contract. This is ordered based off specific treatments related to chronic pain with the potential to abuse certain medications.
[2024-07-09 11:08] VITALS: BP 124/84; PULSE 85; RESP 18; O2SAT 95; BMI 27.8
== END 2024-07-09 23:59 | disposition home or self-care (01) ==
PROVIDERS: PCP Nurse Practitioner; Visit Provider Nurse Practitioner Family
DX: M54.2 Cervicalgia (principal); M47.22 Other spondylosis with radiculopathy, cervical region; F17.220 Nicotine dependence, chewing tobacco, uncomplicated; U07.0 Vaping-related disorder; Z73.89 Other problems related to life management difficulty
CPT/HCPCS: 99212; G0463

== ENCOUNTER 2024-07-31 07:38 | Outpatient (CLI) | payer OTHER, SELFPAY ==
--- NOTE | 2024-07-31 07:41 | CA_ITS ---
FINAL REPORT TECHNIQUE: Ultrasound images of the kidneys were obtained. Duplex Doppler of the renal arteries, RAR and RI also obtained. Spectral analysis was performed. CLINICAL HISTORY: HTN, Pacemaker FINDINGS: Aortic velocity is measured at 72 cm/sec. The right kidney measures 11.1 cm in length. RAR is 3.21. Peak systolic velocity is 230 cm/sec. RI is 0.64-0.69. The left kidney measures 11.8 cm in length. RAR is 3.41. Peak systolic velocity is 244 cm/sec. RI is 0.58-0.68. IMPRESSION: Greater than 70% renal artery stenosis bilaterally. Recommend CTA to further evaluate. Reviewed, Interpreted and Dictated by Jonny Cruz MD Transcribed by Katy Moran Authenticated and [facility]
== END 2024-07-31 23:59 | disposition home or self-care (01) ==
LOC: RT 07:39
PROVIDERS: PCP Nurse Practitioner; Visit Provider Physician Assistant
DX: I10 Essential (primary) hypertension (principal)
CPT/HCPCS: 93976

== ENCOUNTER 2024-08-18 07:52 | Day surgery (SDC) | payer OTHER, SELFPAY ==
[2024-08-18 08:09] VITALS: BP 160/94; PULSE 85; RESP 16; TEMP 36.4; O2SAT 99; BMI 27.1
[2024-08-18] MEDS: IOPAMIDOL-200 (41%);10ML VIAL 10 ML IV (08:13)
[2024-08-18 08:35] VITALS: BP 180/91; PULSE 79; RESP 16; O2SAT 97
[2024-08-18] MEDS: methylPREDNISolone ACETATE 80MG/ML VIAL 80 MG (09:00)
[2024-08-18 09:01] VITALS: BP 162/99; PULSE 87; RESP 18; O2SAT 95
[2024-08-18 09:05] VITALS: BP 162/99; PULSE 87; RESP 18; O2SAT 95
--- NOTE | 2024-08-18 09:11 | P.PCN_ITS ---
Procedure Date: 08/18/24 Time: 08:30 Anesthesiologist:: Vincent Ahuja CRNA Complications:: None Pre-procedure Diagnosis:: Degenerative disc cervical spine multilevels. Cervical radiculopathy. Post-procedure Diagnosis:: Same. Indications for Procedure:: Patient is a very pleasant 53-year-old male who comes our clinic today for repeat cervical epidural steroid injection. Patient describes posterior cervical neck pain as well as bilateral arm radicular symptoms at times. He reports 6 to 8 weeks of significant proved in terms of his overall symptoms with his previous cervical epidural steroid injection same level. He rates his pain today 5/10. Procedure Details:: Procedure:Cervical epidural steroid injection Informed consent was obtained and the risks and benefits of the procedure were explained to the patient. The patient was taken to the procedure room and noninvasive monitors placed, including noninvasive blood pressure cuff and pulse oximeter. The neck was prepped using Chloraprep as a cleansing solution. The C6- C7 interspace was viewed using fluroscopy. The skin and subcutaneous tissues were anesthetized using lidocaine 1.5% and a 25-gauge needle. After this an 18- gauge Touhy epidural needle was placed into the C6-C7 interspace under fluroscopy guidance and advanced using loss of resistance to air until the epidural space was encountered. After confirmation of needle placement in the epidural space using contrast dye, a solution containing normal saline, 2 mL and Depo-Medrol 80 mg was incrementally injected into the cervical epidural space.~ The patient tolerated the procedure well with no complications. The patient was observed in the Pain Clinic and then discharged home neurologically intact. Plan and Disposition:: Patient was discharged without incident.
== END 2024-08-18 08:35 | disposition home or self-care (01) ==
LOC: SC.PAINP 07:53
PROVIDERS: PCP Nurse Practitioner; Visit Provider Nurse Anesthetist, Certified Registered
DX: M50.30 Other cervical disc degeneration, unspecified cervical region (principal); M54.12 Radiculopathy, cervical region
CPT/HCPCS: 62321; J1010; Q9966

== ENCOUNTER 2024-08-20 09:21 | Outpatient (CLI) | payer OTHER, SELFPAY ==
--- NOTE | 2024-08-20 09:38 | CT_ITS ---
FINAL REPORT TECHNIQUE: Pre-and postcontrast images of the abdomen were performed by computed tomography. Extensive 3-D reconstruction images were performed. A CTA was performed. This study was performed with techniques to keep radiation doses as low as reasonably achievable (ALARA). Individualized dose reduction techniques using automated exposure control or adjustment of mA and/or kV according to the patient''s size were employed. CLINICAL HISTORY: hypertension FINDINGS: ABDOMEN: Precontrast images demonstrate no evidence of nephrolithiasis. No adrenal masses are identified. There is fatty infiltration of the liver. The gallbladder is present. The remaining solid organs are unremarkable. Patient is status post appendectomy. CTA: The abdominal aorta shows very minimal calcified plaque disease. There is moderate narrowing of the proximal celiac artery compatible with compression from the arcuate ligament. The GILA and SMA are widely patent. There is no significant stenosis or calcification. The renal arteries are patent bilaterally. 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 Reviewed, Interpreted and Dictated by Valentina Oliver MD Transcribed by Nyla Cordoba Authenticated and [facility]
[2024-08-20 09:39] LABS: Basophils % 0.6 % (0.1-2.0); Eosinophils # 0.1 K/mm3 (0.0-0.4); Eosinophils % 1.9 % (0.1-12.0); Hematocrit 46.3 % (42.0-52.0); Hemoglobin 15.6 g/dL (14.1-18.0); Lymphocytes # 1.2 K/mm3 (0.7-4.5); Lymphocytes % 21.9 % (10-50); Mean Corpuscular HGB Conc 33.7 g/dL (31.8-35.4); Mean Corpuscular Hemoglobin 30.7 pg (27.0-31.2); Mean Corpuscular Volume 91.1 fl (80-94); Mean Platelet Volume 10.7 fl (7.4-10.4); Monocytes # 0.7 K/mm3 (0.1-1.0); Monocytes % 12.2 % (1.7-9.3); Neutrophils # 3.4 K/mm3 (1.8-7.8); Neutrophils % 62.8 % (37.0-80.0); Platelet Count 215 K/mm3 (142-424); Red Blood Count 5.08 M/mm3 (4.60-6.20); Red Cell Distribution Width 13.3 % (11.5-17.5); White Blood Count 5.4 K/mm3 (4.8-10.8)
[2024-08-20 09:49] LABS: Albumin Level 5.1 g/dl (3.5-5.0); Chloride 103 mmol/L (98-107); Potassium 3.4 mmoL/L (3.5-5.1); Sodium 143 mmol/L (136-145)
[2024-08-20 09:52] LABS: Alanine Aminotransferase 113 U/L (12-78); Alkaline Phosphatase 90 U/L (38-126); Anion Gap 15.4 mEq/L (5-15); Aspartate Amino Transferase 82 U/L (17-59); Bilirubin,Direct 0.1 mg/dl (0.0-0.4); Bilirubin,Indirect 0.3 mg/dL (0.0-0.9); Bilirubin,Total 0.4 mg/dl (0.2-1.3); Bilirubin,Unconjugated 0.3 mg/dL (0.0-1.1); Blood Urea Nitrogen 10 mg/dl (9-20); Calcium 9.5 mg/dl (8.4-10.2); Carbon Dioxide 28 mmol/L (22.0-30.0); Cholesterol 299 mg/dl (140-200); Estimated Glomerular Filt Rate 89 ml/min (>60); GFR (African American) 108 ML/MIN (>60); Glucose 111 mg/dl (74-100); Magnesium 2.1 mg/dl (1.6-2.3); Total Protein,Serum 8.8 g/dl (6.3-8.2); Triglycerides 232 mg/dl (30-150); VLDL Cholesterol 46 mg/dL (0-40)
[2024-08-20 09:53] LABS: Chol/HDL Ratio 5.5 (1-3.5); HDL Cholesterol 54 mg/dl (40-60)
[2024-08-20] MEDS: 0.9 % SODIUM CHLORIDE 50 ML VIAL IV (10:18)
[2024-08-20] MEDS: IOPAMIDOL-370 (76%);100ML BOTTLE 80 ML IV (10:18)
[2024-08-20] MEDS: SODIUM CHLORIDE 0.9% 10ML SYR (RAD ONLY) 10 ML IV (10:18)
[2024-08-20 10:25] LABS: Thyroid Stimulating Hormone 4.25 uIU/mL (0.465-4.68)
[2024-08-20 10:51] LABS: Free T4 (Free Thyroxine) 0.79 ng/dl (0.78-2.19)
== END 2024-08-20 23:59 | disposition home or self-care (01) ==
LOC: RAD 09:22
PROVIDERS: PCP Nurse Practitioner; Visit Provider Physician Assistant
DX: I77.810 Thoracic aortic ectasia (principal); R94.31 Abnormal electrocardiogram [ECG] [EKG]; G47.33 Obstructive sleep apnea (adult) (pediatric); R06.09 Other forms of dyspnea; I10 Essential (primary) hypertension
CPT/HCPCS: 36415; 74175; 80048; 80061; 80076; 83735; 84439; 84443; 85025; Q9967

== ENCOUNTER 2024-08-21 16:07 | Emergency (ER) | payer OTHER, SELFPAY ==
[2024-08-21 16:08] VITALS: BP 176/91; PULSE 71; RESP 22; TEMP 36.3; O2SAT 100; BMI 27.1
--- NOTE | 2024-08-21 16:16 | ED_ITS ---
Discharge Plan Disposition Patient Disposition: Home, Self-Care Condition: Good Chief Complaint: Chest Pain Prescriptions Prescriptions: No Action alprazolam [Xanax] 1 mg tablet 1 mg PO QID Patient Comments: previously given before seeing tru meredith 02-06-19 testosterone cypionate 200 mg/mL oil 200 mg IM QMONTH Patient Comments: INJECT 1 ML (CC) INTRAMUSCULARLY ONCE EVERY MONTH omeprazole 40 mg capsule,delayed release(DR/EC) 40 mg PO DAILY Patient Comments: TAKE 1 CAPSULE BY MOUTH ONCE DAILY 30 MINUTES TO 1 HOUR BEFORE MORNING MEAL chlorthalidone 25 mg tablet 25 mg PO DAILY Qty: 30 2RF Trintellix 20 mg tablet 20 mg PO DAILY Qty: 90 1RF metoprolol succinate [Toprol XL] 25 mg tablet extended release 24 hr 25 mg PO DAILY Qty: 30 5RF valsartan 160 mg tablet 160 mg PO BID 90 Days Qty: 180 3RF Referrals Follow up/Referrals: Wendi (ED),NERIS Ty [Primary Care Provider] - See instructions Clinical Impressions Clinical Impression: Angina at rest Instructions Patient Instructions: DI for Atypical Chest Pain Print Language Print Language: Ukrainian Discharge ED Provider: Debra Yusuf General Adult HPI General Chief complaint: Chest Pain Stated complaint: Ringing in ears,nauseated,HBP,tightness jaws Time Seen by Provider: 08/21/24 16:11 History of Present Illness HPI narrative: Patient is a 53-year-old with past medical history significant for hypertension chronic Xanax use and ascending aortic dilation and pacemaker who presents to the emergency department for shortness of breath. Patient had a CT yesterday to evaluate stenosis to his kidneys after the CT he was asymptomatic this morning at 2 AM he developed shortness of breath ringing in his years and tightness in his jaws he feels nauseous without vomiting. No cough congestion fever abdominal pain. Does not describe his tightness as pain in his chest with no radiation. Related Data Home Medications ?Medication ?Instructions ?Recorded ?Confirmed alprazolam 1 mg tablet (Xanax) 1 mg PO QID Anxiety 02/06/19 08/18/24 testosterone cypionate 200 mg/mL 200 mg IM QMONTH 01/06/24 08/18/24 intramuscular oil omeprazole 40 mg capsule,delayed 40 mg PO DAILY 07/27/24 08/18/24 release Previous Rx's ?Medication ?Instructions ?Recorded metoprolol succinate 25 mg 25 mg PO DAILY #30 tabs 04/16/24 tablet,extended release 24 hr (Toprol XL) chlorthalidone 25 mg tablet 25 mg PO DAILY #30 tabs 04/27/24 vortioxetine 20 mg tablet 20 mg PO DAILY Depression #90 tabs 05/28/24 (Trintellix) valsartan 160 mg tablet 160 mg PO BID Hypertension 90 days 08/21/24 #180 tabs Allergies Allergy/AdvReac Type Severity Reaction Status Date / Time Tricyclic Antidepressants Allergy Unknown Verified 07/27/24 09:35 and Tricy (TRICYCLIC COMPOUNDS) metoprolol AdvReac fatigue Verified 07/27/24 09:35 [facility] Disclaimer: The information contained in this section may have been updated after the patient was seen, as this information can be updated by other users. Medical History Ascending aorta dilation Edema Tricuspid regurgitation Mitral regurgitation Hx of cardiac pacemaker Abnormal electrocardiogram [ECG] [EKG] HARRISON (obstructive sleep apnea) Hypertension Shortness of Breath Chest pain Generalized anxiety disorder Major depressive disorder SVT (supraventricular tachycardia) Palpitations Cardiac pacemaker in situ Surgical History Hx of appendectomy History of back surgery History of right shoulder replacement Hx of left knee surgery Family History Other Cancer Heart attack Unknown family medical history Social History Smoking Status: Unknown if ever smoked second hand exposure: No alcohol intake: current alcohol intake frequency: a few times a week substance use type: denies use current occupational status: other Travel in the last 8 weeks: None household members: spouse and family housing: house marital status: number of children: 2 current occupational exposures/hazards: No caffeine: Yes Have you lived/traveled outside [place] in past 30 days?: No Contact w/someone who lives/traveled outside US past 30 days?: No Exposure to someone with infectious disease in past 14 days?: No Do you have a fever (greater than 100.4 F or 38 C)?: No Have you tested positive for COVID-19: No Exposed to someone with COVID-19 in past 14 days?: No Do you have a sore throat?: No Do you have a cough?: No Do you have any weakness?: No Do you have any diarrhea?: No Are you experiencing any unusual bleeding?: No Do you have any muscle aches/pain?: Yes Do you have any abdominal pain?: No Are you experiencing loss of taste or smell?: No Other Medical History Have you received the Flu Vaccine for this season: No Have you received the Pneumonia Vaccine: No ROS Obtained: Yes All systems reviewed & no additional complaints except as documented Physical Exam General General appearance: alert and in no apparent distress Eye Eye exam: Present normal appearance and PERRL ENT ENT exam: Present normal exam and mucous membranes moist Chest Chest inspection: Present normal inspection and symmetric chest wall rise Respiratory Respiratory exam: Present normal lung sounds bilaterally; Absent respiratory distress Cardiovascular Cardiovascular exam: Present regular rate and normal rhythm Abdominal Exam Abdominal exam: Present soft; Absent distention or tenderness Neurological Exam Neurological exam: Present alert and oriented X3 Skin Skin exam: Present warm and dry Medical Decision Making Medical Records Screening: Per USPSTF and CDC recommendations, given the prevalence of disease in our region, it is our hospital?s policy to screen for HIV and viral Hepatitis for all patients aged 18 and over and those with ongoing risk factors. Santosh Inquiry Pt receiving controlled substance: No Vital Signs: 08/21/24 16:08 Temperature 97.4 F L Temperature Source Oral Pulse Rate [Radial] 71 Respiratory Rate 22 Blood Pressure [R Arm] 176/91 H Blood Pressure Mean [R Arm] 119 Blood Pressure Source [R Arm] Automatic Cuff 02 Sat by Pulse Oximetry 100 Oxygen Delivery Method Room Air Lab Data Lab Results 08/21/24 16:20: WBC 6.9 D, RBC 4.71, Hgb 14.6, Hct 42.4, MCV 90.0, MCH 31.0, MCHC 34.4, RDW 13.3, Plt Count 221, MPV 10.6 H, Neut % (Auto) 71.9, Lymph % (Auto) 15.0, [place] % (Auto) 10.8 H, Eos % (Auto) 1.6, Baso % (Auto) 0.3, Neut # (Auto) 5.0, Lymph # (Auto) 1.0, [place] # (Auto) 0.8, Eos # (Auto) 0.1, Baso # (Auto) 0.0, Sodium 140, Potassium 3.4 L, Chloride 100, Carbon Dioxide 30, Anion Gap 13.4, BUN 14 D, Creatinine 0.90, Estimated Creat Clear 125, Estimated GFR 89, Est GFR ( Amer) 108, Glucose 107 H, Calcium 9.6, Total Bilirubin 0.6, AST 111 H D, ALT 151 H D, Alkaline Phosphatase 101, Troponin I < 0.01, Total Protein 8.0, Albumin 4.9, Globulin 3.1, Albumin/Globulin Ratio 1.6, Lipase 133 08/21/24 16:20 08/21/24 16:20 Orders (Tests/Meds): ED MEDICATIONS Discontinued Medications Generic Name Dose Route Start Last Admin Trade Name Freq PRN Reason Stop Dose Admin Aspirin 324 mg 08/21/24 16:22 08/21/24 16:20 Aspirin 81mg Chewable Tablet PO 08/21/24 16:23 324 mg ONCE ONE Administration Iopamidol 70 ml 08/21/24 16:34 08/21/24 16:35 Iopamidol-370 (76%);100ml Bottle IV 08/21/24 16:35 70 ml ONCE ONE Administration Sodium Chloride 10 ml 08/21/24 16:34 08/21/24 16:35 Sodium Chloride 0.9% 10ml Syr (Rad Only) IV 08/21/24 16:35 10 ml ONCE ONE Administration Sodium Chloride 50 ml 08/21/24 16:34 08/21/24 16:35 0.9 % Sodium Chloride 50 Ml Vial IV 08/21/24 16:35 50 ml ONCE ONE Administration ORDERS Category Date Time Status CT angio chest PE protocol Stat Cat Scan 08/21/24 16:22 Completed XR chest 2V Stat Exams 08/21/24 16:22 Completed Complete Blood Count Auto Diff Stat Lab 08/21/24 16:20 Completed Comprehensive Metabolic Panel Stat Lab 08/21/24 16:20 Completed HIV Combo Stat Lab 08/21/24 16:20 Received Hepatitis C Ab Qual. W/ RFX Stat Lab 08/21/24 16:20 Received Lipase Stat Lab 08/21/24 16:20 Completed Troponin I Q3H Lab 08/21/24 19:30 Ordered Troponin I Q3H Lab 08/21/24 22:30 Ordered Troponin I Stat Lab 08/21/24 16:20 Completed HEART Score History (anamnesis): Moderately suspicious ECG: Normal Age: 45-65 years Risk factors: Atherosclerosis history Troponin: </= normal limit HEART Score: 4 Medical Decision Narrative: In summary, this 53-year-old male presents to the emergency department today with shortness of air and chest tightness. On initial evaluation patient is hypertensive normal heart rate saturating appropriately on room air afebrile no acute distress. Differential diagnosis includes but is not limited to arrhythmia PE pneumonia aortic dissection anxiety ACS Xanax withdrawal. Based on these concerns, I ordered CBC CMP Trop EKG CTA chest ECG personally interpreted demonstrates normal sinus rhythm no acute ST elevation ST depression or T wave inversions concerning for acute ischemia. Repeat with T wave inversions in lead III however normal troponin. Patient received aspirin for treatment. Labs personally reviewed demonstrate mild transaminitis consistent but increasing from prior AST and ALT evaluations. Recommend outpatient follow-up to continue to trend. CT a abdomen pelvis from yesterday without concerns of gallbladder pathology or pancreatitis. Lipase normal minimal tenderness left upper quadrant but otherwise nonactionable abdominal exam. XR personally interpreted demonstrates no pnuumothorax or consolidation CT imaging personally interpreted demonstrate no aortic dissection, no saddle PE On reassessment blood pressure improved to systolics of 120s patient asymptomatic at this time. Symptoms are most concerning for unstable angina. Patient has a cardiology appointment this for follow-up. Agreeable with strict return precautions for new or worsening symptoms and return of chest pain. Admission considered and did not admit at this time as patient is asymptomatic at time of discharge and has close follow-up with cardiology. Critical Care Critical Care Time Critical Care Time: No
[2024-08-21] MEDS: ASPIRIN 81MG CHEWABLE TABLET 324 MG PO (16:20)
--- NOTE | 2024-08-21 16:22 | XR_ITS ---
PROCEDURE INFORMATION: Exam: XR Chest Exam date and time: 08/21/2024 4:29 PM Age: 53 years old Clinical indication: Shortness of breath; Additional info: SOA TECHNIQUE: Imaging protocol: Radiologic exam of the chest. Views: 2 views. COMPARISON: CT ANGIO CHEST 05/21/2024 10:58 AM FINDINGS: Tubes, catheters and devices: Left chest wall dual lead pacemaker in place. Lungs: Normal. Pleural spaces: Normal. No pleural effusion. No pneumothorax. Heart/Mediastinum: No cardiomegaly. Pacer leads extend to the right atrium and right ventricle. Bones/joints: Unremarkable. IMPRESSION: No acute findings.
--- NOTE | 2024-08-21 16:22 | CT_ITS ---
PROCEDURE INFORMATION: Exam: CTA Chest With Contrast Exam date and time: 08/21/2024 4:34 PM Age: 53 years old Clinical indication: Pain; Chest pressure; Additional info: SOA, unable to lower BP TECHNIQUE: Imaging protocol: Computed tomographic angiography of the chest with contrast. Exam focused on the arteries. 3D rendering (Not supervised by radiologist): MIP and/or 3D reconstructed images were created by the technologist. Radiation optimization: All CT scans at this facility use at least one of these dose optimization techniques: automated exposure control; mA and/or kV adjustment per patient size (includes targeted exams where dose is matched to clinical indication); or iterative reconstruction. Contrast material: ISOVUE 370; Contrast volume: 80 ml; Contrast route: INTRAVENOUS (IV); COMPARISON: CT ANGIO CHEST 05/21/2024 10:58 AM FINDINGS: Tubes, catheters and devices: Left chest wall dual lead pacemaker in place. Pulmonary arteries: Normal. No pulmonary emboli. Aorta: Unremarkable. No aortic aneurysm. No aortic dissection. Lungs: Mild paraseptal emphysema. Right lower lobe calcified granuloma. Mild dependent atelectasis. Pleural spaces: Unremarkable. No pneumothorax. No pleural effusion. Heart: No cardiomegaly. No pericardial effusion. Pacer leads terminate in the right atrium and right ventricle. Lymph nodes: Calcified subcarinal and right hilar lymph nodes. No adenopathy. Liver: Hepatic steatosis. Spleen: Calcified granulomas in the spleen. No splenomegaly. Bones/joints: Unremarkable. No acute fracture. Soft tissues: Unremarkable. IMPRESSION: 1. No evidence of a pulmonary embolism. 2. No aortic aneurysm or dissection. 3. No acute findings. 4. Prior granulomatous disease. COMMENTS: The presence of pulmonary emphysema on CT is an independent risk factor for lung cancer. In the absence of a history or active diagnosis of lung cancer, it is recommended that this patient with emphysema be evaluated for enrollment in a low dose CT lung cancer screening program.
--- NOTE | 2024-08-21 16:32 | PC.NURSE ---
pt to ct via wheelchair
[2024-08-21] MEDS: IOPAMIDOL-370 (76%);100ML BOTTLE 70 ML IV (16:35)
[2024-08-21] MEDS: 0.9 % SODIUM CHLORIDE 50 ML VIAL IV (16:35)
[2024-08-21] MEDS: SODIUM CHLORIDE 0.9% 10ML SYR (RAD ONLY) 10 ML IV (16:35)
[2024-08-21 16:44] LABS: Albumin Level 4.9 g/dl (3.5-5.0); Chloride 100 mmol/L (98-107); Potassium 3.4 mmoL/L (3.5-5.1); Sodium 140 mmol/L (136-145)
[2024-08-21 16:47] LABS: Alanine Aminotransferase 151 U/L (12-78); Albumin/Globulin Ratio 1.6 (1.1-1.8); Alkaline Phosphatase 101 U/L (38-126); Anion Gap 13.4 mEq/L (5-15); Aspartate Amino Transferase 111 U/L (17-59); Bilirubin,Total 0.6 mg/dl (0.2-1.3); Blood Urea Nitrogen 14 mg/dl (9-20); Calcium 9.6 mg/dl (8.4-10.2); Carbon Dioxide 30 mmol/L (22.0-30.0); Creatinine Clearance Estimated 125 mL/min (50-200); Estimated Glomerular Filt Rate 89 ml/min (>60); GFR (African American) 108 ML/MIN (>60); Globulin 3.1 g/dL (1.3-3.2); Glucose 107 mg/dl (74-100)
[2024-08-21 16:50] LABS: Basophils % 0.3 % (0.1-2.0); Eosinophils # 0.1 K/mm3 (0.0-0.4); Eosinophils % 1.6 % (0.1-12.0); Hematocrit 42.4 % (42.0-52.0); Hemoglobin 14.6 g/dL (14.1-18.0); Mean Corpuscular HGB Conc 34.4 g/dL (31.8-35.4); Mean Platelet Volume 10.6 fl (7.4-10.4); Monocytes # 0.8 K/mm3 (0.1-1.0); Monocytes % 10.8 % (1.7-9.3); Neutrophils % 71.9 % (37.0-80.0); Platelet Count 221 K/mm3 (142-424); Red Blood Count 4.71 M/mm3 (4.60-6.20); Red Cell Distribution Width 13.3 % (11.5-17.5); White Blood Count 6.9 K/mm3 (4.8-10.8)
--- NOTE | 2024-08-21 16:54 | ECG_ITS ---
APPROVED REPORT Exam: Resting ECG HR:65 bpm ECG Measurements Heart Rate 65 AXES CA 148 P 46 QRSd 94 QRS -5 QT 374 T 0 QTc 385 Conclusion SINUS RHYTHM POSSIBLE INFERIOR MYOCARDIAL INFARCTION , PROBABLY OLD [30 ms Q WAVE IN II/aVF] BORDERLINE ECG Electronically signed by : VINCENT MCGOWAN, 08/23/2024 16:58:59
[2024-08-21 17:12] LABS: Troponin I < 0.01 ng/ml (0.00-0.034)
[2024-08-21 17:22] LABS: Lipase 133 U/L (23-300)
[2024-08-21 17:49] VITALS: BP 147/75; PULSE 61; RESP 13; O2SAT 96
[2024-08-21 17:53] VITALS: BP 147/75; PULSE 60; RESP 20; TEMP 36.3
[2024-08-21 19:09] LABS: HIV Combo NEGATIVE (Negative)
[2024-08-21 19:18] LABS: Hepatitis C Ab Qual. W/ RFX NEGATIVE (Negative)
== END 2024-08-21 17:59 | disposition home or self-care (01) ==
PROVIDERS: Emergency Provider Student in an Organized Health Care Education/Training Program; PCP Nurse Practitioner
DX: R07.89 Other chest pain (principal)
CPT/HCPCS: 71046; 71275; 80053; 83690; 84484; 85025; 86803; 87389; 93005; 99285; Q9967

== ENCOUNTER 2024-08-25 09:21 | Outpatient (CLI) | payer OTHER, SELFPAY ==
[2024-08-31 10:14] LABS: Dopamine, Ur, 24hr 171 ug/24 hr (0-510); Dopamine, Urine 263 ug/L (Undefined); Epinephrine, U, 24hr 7 ug/24 hr (0-20); Epinephrine, Urine 10 ug/L (Undefined); Norepinephrine, Ur 40 ug/L (Undefined); Norepinephrine,U,24h 26 ug/24 hr (0-135)
[2024-08-31 11:25] LABS: Metanephrine, U,24hr 133 ug/24 hr (58-276); Metanephrine, Ur 204 ug/L (Undefined); Normetanephr.,U,24h 227 ug/24 hr (156-729); Normetanephrine, Ur 349 ug/L (Undefined)
== END 2024-08-25 23:59 | disposition home or self-care (01) ==
LOC: LAB 09:22
PROVIDERS: PCP Nurse Practitioner; Visit Provider Physician Assistant
DX: R94.31 Abnormal electrocardiogram [ECG] [EKG] (principal); I10 Essential (primary) hypertension; G47.33 Obstructive sleep apnea (adult) (pediatric); I47.10 Supraventricular tachycardia, unspecified; R00.2 Palpitations; R06.09 Other forms of dyspnea; Z95.0 Presence of cardiac pacemaker
CPT/HCPCS: 82384; 83835

== ENCOUNTER 2024-09-02 08:45 | Outpatient (POV) | payer OTHER, SELFPAY ==
--- NOTE | 2024-09-02 08:51 | A.OFFVIS_ITS ---
[facility] Disclaimer: The information contained in this section may have been updated after the patient was seen, as this information can be updated by other users. Medical History Ascending aorta dilation Edema Tricuspid regurgitation Mitral regurgitation Hx of cardiac pacemaker Abnormal electrocardiogram [ECG] [EKG] HARRISON (obstructive sleep apnea) Hypertension Shortness of Breath Chest pain Generalized anxiety disorder Major depressive disorder SVT (supraventricular tachycardia) Palpitations Cardiac pacemaker in situ Surgical History Hx of appendectomy History of back surgery History of right shoulder replacement Hx of left knee surgery Family History Other Cancer Heart attack Unknown family medical history Social History Smoking Status: Unknown if ever smoked second hand exposure: No alcohol intake: current alcohol intake frequency: a few times a week substance use type: denies use current occupational status: other Travel in the last 8 weeks: None household members: spouse and family housing: house marital status: number of children: 2 current occupational exposures/hazards: No caffeine: Yes PM Subjective & Objective Subjective Subjective:: Patient is a pleasant 53-year-old male who presents today for follow-up of cervical epidural steroid injection C6-C7 on 08/18/2024. Today he rates his pain a 6 out of 10. The patient denies any new falls or injuries. He does state that he had at least 50% improvement following this injection and feels like it is still helping. Patient states the pain is definitely not as severe and not as constant. At our last visits we did discuss the possibility of possible pump or stimulator trial in the future. He does state today that he still very happy with the injections at this point but is still possibly interested in the future. Patient was also sent in a prescription of a new muscle relaxer orphenadrine 100 mg twice daily. Today he states that this did do okay and denies any side effects. He is requesting refills. His Santosh has been reviewed and is appropriate. Review of Systems: General: No recent weight changes, no fever, no sleep disturbances Respiratory: No cough, no shortness of air, no recurring pulmonary infections Cardiovascular/peripheral vascular: No chest pain, no palpitations, no edema, no shortness of breath Gastrointestinal: No new onset incontinence, normal bowel movements reported Genitourinary: No new onset incontinence Musculoskeletal: Neck pain Psychiatric: [Normal mood/affect] Neurological: [Denies weakness in extremities], [denies balance issues] Pain at rest (0-10 scale): 6 Objective Objective:: Physical Exam: General: Alert and oriented x3, no acute distress, pleasant and cooperative Lungs: Respirations even and unlabored, symmetrical chest expansion Eyes: PERRL Musculoskeletal: Flexion and extension of cervical [spine] somewhat guarded secondary to pain, [antalgic gait noted] Neurological: Speech clear, no gross sensory deficit Has patient had previous pain injection?: Yes Percent improvement in pain since last injection: 50% Conservative treatment options previously tried: Home exercise plan Length of treatment: Longer than 12 weeks Meds Home Medications and Allergies Home Medications ?Medication ?Instructions ?Recorded ?Confirmed ?Type alprazolam 1 mg tablet (Xanax) 1 mg PO QID Anxiety 02/06/19 08/27/24 History chlorthalidone 25 mg tablet 25 mg PO DAILY #30 tabs 04/27/24 08/27/24 Rx vortioxetine 20 mg tablet 20 mg PO DAILY Depression #90 tabs 05/28/24 08/27/24 Rx (Trintellix) omeprazole 40 mg capsule,delayed 40 mg PO DAILY 07/27/24 08/27/24 History release metoprolol succinate 25 mg 25 mg PO BID #180 tabs 08/27/24 08/27/24 Rx tablet,extended release 24 hr (Toprol XL) valsartan 320 mg tablet 320 mg PO DAILY Hypertension 90 08/27/24 08/27/24 Rx days #90 tabs New Prescriptions to Start Prescriptions: Allergies Allergy/AdvReac Type Severity Reaction Status Date / Time Tricyclic Antidepressants Allergy Unknown Verified 08/27/24 08:36 and Tricy (TRICYCLIC COMPOUNDS) metoprolol AdvReac fatigue Verified 08/27/24 08:36 Assessment and Plan *Assessment and plan (1) Cervical radiculopathy: Status: Acute Category: Medical Code(s): M54.12 - Radiculopathy, cervical region (2) Degenerative joint disease of cervical spine: Status: Acute Qualifiers: Spinal osteoarthritis complication: with radiculopathy Qualified Code(s): M47.22 - Other spondylosis with radiculopathy, cervical region Category: Medical Code(s): M47.812 - Spondylosis without myelopathy or radiculopathy, cervical region Plan Patient has had significant improvement following her cervical epidural and does not require any additional injections at this time. I will refill there orphenadrine and provide a 2-month supply of this medication. Patient will return to clinic in 6 weeks. Patient has been instructed to contact the clinic with any concerns before the next appointment. Dr. Saxena has reviewed this note and agrees with this plan of care. This note was dictated using voice recognition software and make contain errors or omissions. All injections are used with Lidocaine, Bupivacaine and Depo Medrol. Occasionally urine drug screen is needed to verify patient's compliance with our office pain contract. This is ordered based off specific treatments related to chronic pain with the potential to abuse certain medications.
[2024-09-02 09:13] VITALS: BP 148/90; PULSE 65; RESP 18; O2SAT 97; BMI 27.1
== END 2024-09-02 23:59 | disposition home or self-care (01) ==
PROVIDERS: PCP Nurse Practitioner; Visit Provider Nurse Practitioner Family
DX: M47.22 Other spondylosis with radiculopathy, cervical region (principal); Z96.611 Presence of right artificial shoulder joint
CPT/HCPCS: 99212; G0463

== ENCOUNTER 2024-10-08 09:03 | Outpatient (POV) | payer OTHER, SELFPAY ==
[2024-10-08 09:17] VITALS: BP 137/78; PULSE 73; RESP 16; O2SAT 97; BMI 27.1
--- NOTE | 2024-10-08 10:41 | EXP.PAIN.SOA ---
[facility] Disclaimer: The information contained in this section may have been updated after the patient was seen, as this information can be updated by other users. Medical History Ascending aorta dilation Edema Tricuspid regurgitation Mitral regurgitation Hx of cardiac pacemaker Abnormal electrocardiogram [ECG] [EKG] HARRISON (obstructive sleep apnea) Hypertension Shortness of Breath Chest pain Generalized anxiety disorder Major depressive disorder SVT (supraventricular tachycardia) Palpitations Cardiac pacemaker in situ Surgical History Hx of appendectomy History of back surgery History of right shoulder replacement Hx of left knee surgery Family History Other Cancer Heart attack Unknown family medical history Social History Smoking Status: Former smoker tobacco type: e-cigarettes and smokeless tobacco second hand exposure: No alcohol intake: current alcohol intake frequency: a few times a week substance use type: denies use current occupational status: other Travel in the last 8 weeks: None household members: spouse and family housing: house marital status: number of children: 2 current occupational exposures/hazards: No caffeine: Yes PM Subjective & Objective Subjective Subjective:: Patient is a pleasant 53-year-old male who presents today for worsening pain in his right shoulder. He rates pain an 8 out of 10. He denies any new trauma or injury. He does state that the pain is constant and is interfering with his ability to perform activities of daily living such as cooking and cleaning. Patient is interested in any help we may be able to provide. Patient did have his last cervical epidural in August that did provide more than 50% improvement. Patient was also prescribed orphenadrine 100 mg twice a day from our office and he states that he just feels like this only does so so. Patient does state that he has had chronic pain in both his shoulders however his right is always been the worst. Patient has had previous surgery to repair tears however denies any prior replacement. His Santosh has been reviewed and is appropriate. Review of Systems: General: No recent weight changes, no fever, no sleep disturbances Respiratory: No cough, no shortness of air, no recurring pulmonary infections Cardiovascular/peripheral vascular: No chest pain, no palpitations, no edema, no shortness of breath Gastrointestinal: No new onset incontinence, normal bowel movements reported Genitourinary: No new onset incontinence Musculoskeletal: Right shoulder pain Psychiatric: [Normal mood/affect] Neurological: [Denies weakness in extremities], [denies balance issues] Pain at rest (0-10 scale): 8 Objective Objective:: Physical Exam: General: Alert and oriented x3, no acute distress, pleasant and cooperative Lungs: Respirations even and unlabored, symmetrical chest expansion Eyes: PERRL Musculoskeletal: Flexion and extension of right shoulder somewhat guarded secondary to pain Neurological: Speech clear, no gross sensory deficit Has patient had previous pain injection?: No Conservative treatment options previously tried: Home exercise plan Length of treatment: Longer than 12 weeks Meds Home Medications and Allergies Home Medications ?Medication ?Instructions ?Recorded ?Confirmed ?Type alprazolam 1 mg tablet (Xanax) 1 mg PO QID Anxiety 02/06/19 10/08/24 History chlorthalidone 25 mg tablet 25 mg PO DAILY #30 tabs 04/27/24 10/08/24 Rx vortioxetine 20 mg tablet 20 mg PO DAILY Depression #90 tabs 05/28/24 10/08/24 Rx (Trintellix) omeprazole 40 mg capsule,delayed 40 mg PO DAILY 07/27/24 10/08/24 History release metoprolol succinate 25 mg 25 mg PO BID #180 tabs 08/27/24 10/08/24 Rx tablet,extended release 24 hr (Toprol XL) valsartan 320 mg tablet 320 mg PO DAILY Hypertension 90 08/27/24 10/08/24 Rx days #90 tabs orphenadrine citrate 100 mg 100 mg PO BID #60 tabs 09/02/24 10/08/24 Rx tablet,extended release amlodipine 10 mg tablet 10 mg PO DAILY #90 tabs 10/01/24 10/08/24 Rx dicyclomine 10 mg capsule 10 mg PO QID PRN abdominal 10/06/24 10/08/24 Rx pain/urgency #120 caps New Prescriptions to Start Prescriptions: Allergies Allergy/AdvReac Type Severity Reaction Status Date / Time Tricyclic Antidepressants Allergy Unknown Verified 10/06/24 13:07 and Tricy (TRICYCLIC COMPOUNDS) hydrocodone Allergy Verified 10/06/24 13:07 metoprolol AdvReac fatigue Verified 10/06/24 13:07 Assessment and Plan *Assessment and plan (1) Chronic right shoulder pain: Status: Acute Category: Medical Code(s): M25.511 - Pain in right shoulder; G89.29 - Other chronic pain Plan Patient is experiencing significant pain in his right shoulder with limited range of motion. Patient states that he has had a cortisone injection in the past for this shoulder from orthopedics and it made no improvement. Patient does state that it is been well over a year. Patient was reviewed that he may benefit from a suprascapular nerve block. Risk and benefits were discussed with the patient and he would like to proceed forward with this plan of care. Patient has tried and failed conservative therapy including oral medications, heat and ice, topicals, at home stretching exercise for longer than 12 weeks with no additional improvement. Patient has had failed right shoulder surgery. This pain has been going on for longer than a year. Patient will be scheduled for a right suprascapular nerve block. Patient has been instructed to contact the clinic with any concerns before the next appointment. Dr. Saxena has reviewed this note and agrees with this plan of care. This note was dictated using voice recognition software and make contain errors or omissions. All injections are used with Lidocaine, Bupivacaine and Depo Medrol. Occasionally urine drug screen is needed to verify patient's compliance with our office pain contract. This is ordered based off specific treatments related to chronic pain with the potential to abuse certain medications.
== END 2024-10-08 23:59 | disposition home or self-care (01) ==
LOC: SC.PAIN 09:05
PROVIDERS: PCP Nurse Practitioner; Visit Provider Nurse Practitioner Family
DX: M25.511 Pain in right shoulder (principal); G89.29 Other chronic pain; Z96.611 Presence of right artificial shoulder joint; Z87.891 Personal history of nicotine dependence; Z73.89 Other problems related to life management difficulty
CPT/HCPCS: 99212; G0463

== ENCOUNTER 2024-10-12 12:24 | Outpatient (CLI) | payer OTHER, SELFPAY ==
[2024-10-14 15:14] LABS: Pancreatic Elastase, Fecal >800 (>200)
== END 2024-10-12 23:59 | disposition home or self-care (01) ==
LOC: LAB 12:25
PROVIDERS: PCP Nurse Practitioner; Visit Provider Nurse Practitioner Family
DX: R14.0 Abdominal distension (gaseous) (principal)
CPT/HCPCS: 82656

== ENCOUNTER 2024-11-03 12:54 | Day surgery (SDC) | payer OTHER, SELFPAY ==
[2024-11-03 13:02] VITALS: BP 133/83; PULSE 73; RESP 16; TEMP 36.4; O2SAT 98; BMI 27.5
[2024-11-03] MEDS: DEXAMETHASONE 10MG/ML 1ML VIAL 10 MG (13:07)
[2024-11-03] MEDS: BUPIVACAINE 0.25% 10ML INJ 25 MG IJ (13:08)
[2024-11-03] MEDS: LIDOCAINE 1% 5ML PF VIAL 5 ML (13:08)
[2024-11-03 13:09] VITALS: BP 144/83; PULSE 78; RESP 18; O2SAT 97
[2024-11-03 13:10] VITALS: BP 144/83; PULSE 78; RESP 18; O2SAT 97
--- NOTE | 2024-11-03 13:11 | EXP.PAIN.PRO ---
Procedure Date: 11/03/24 Time: 13:00 Anesthesiologist:: Vincent Ahuja CRNA Complications:: None Pre-procedure Diagnosis:: DJD right shoulder. Chronic right shoulder pain. Post-procedure Diagnosis:: Same. Indications for Procedure:: Patient is a very pleasant 53-year-old male comes our clinic today for right suprascapular nerve block. Patient describes right shoulder pain as constant, dull, aching. He rates his pain 8/10. Patient has had multiple surgeries on the right shoulder in the past. He has 5/5 strength in the right arm. However very limited range of motion of the right arm due to right shoulder pain. Procedure Details:: Details of procedure explained to the patient. The patient taken procedure and placed in the sitting position. The over the right shoulder and scapula was cleaned using chlorhexidine as a cleansing solution. Using a 25-gauge inch and half needle the right suprascapular notch was identified. After negative aspiration 10 cc of a solution containing 4 cc of 0.25% Marcaine 5 cc of 1% lidocaine and 10 mg of dexamethasone was injected incrementally. Patient tolerated procedure without difficulty. There are no complications. Plan and Disposition:: Patient was discharged without incident.
[2024-11-03 13:14] VITALS: BP 143/75; PULSE 74; RESP 16; O2SAT 96
== END 2024-11-03 13:14 | disposition home or self-care (01) ==
PROVIDERS: PCP Nurse Practitioner; Visit Provider Nurse Anesthetist, Certified Registered
DX: M19.011 Primary osteoarthritis, right shoulder (principal); M25.511 Pain in right shoulder; G89.29 Other chronic pain
CPT/HCPCS: 64418; J1100

== ENCOUNTER 2024-11-19 14:57 | Outpatient (POV) | payer OTHER, SELFPAY ==
--- NOTE | 2024-11-19 15:18 | EXP.PAIN.SOA ---
[facility] Disclaimer: The information contained in this section may have been updated after the patient was seen, as this information can be updated by other users. Medical History Ascending aorta dilation Edema Tricuspid regurgitation Mitral regurgitation Hx of cardiac pacemaker Abnormal electrocardiogram [ECG] [EKG] HARRISON (obstructive sleep apnea) Hypertension Shortness of Breath Chest pain Generalized anxiety disorder Major depressive disorder SVT (supraventricular tachycardia) Palpitations Cardiac pacemaker in situ Surgical History Hx of appendectomy History of back surgery History of right shoulder replacement Hx of left knee surgery Family History Other Cancer Heart attack Unknown family medical history Social History Smoking Status: Former smoker tobacco type: e-cigarettes and smokeless tobacco second hand exposure: No alcohol intake: current alcohol intake frequency: a few times a week substance use type: denies use current occupational status: other Travel in the last 8 weeks?: None household members: spouse and family housing: house marital status: number of children: 2 current occupational exposures/hazards: No caffeine: Yes PM Subjective & Objective Subjective Subjective:: Patient is a pleasant 53-year-old male who presents today for follow-up of his right suprascapular nerve block on 11/03/2024. Today he rates his pain a 4 out of 10. He denies any new trauma or injury. He does state that pretty much it was immediate following this injection and felt like it gave 90% relief and is still helping. He states that this 1 was a huge difference from his last injection and has felt like this has been so much more beneficial. He denies any other changes. His Santosh has been reviewed and is appropriate. Review of Systems: General: No recent weight changes, no fever, no sleep disturbances Respiratory: No cough, no shortness of air, no recurring pulmonary infections Cardiovascular/peripheral vascular: No chest pain, no palpitations, no edema, no shortness of breath Gastrointestinal: No new onset incontinence, normal bowel movements reported Genitourinary: No new onset incontinence Musculoskeletal: Right shoulder pain Psychiatric: [Normal mood/affect] Neurological: [Denies weakness in extremities], [denies balance issues] Pain at rest (0-10 scale): 4 Objective Objective:: Physical Exam: General: Alert and oriented x3, no acute distress, pleasant and cooperative Lungs: Respirations even and unlabored, symmetrical chest expansion Eyes: PERRL Musculoskeletal: Flexion and extension of right shoulder [spine] somewhat guarded secondary to pain Neurological: Speech clear, no gross sensory deficit Has patient had previous pain injection?: Yes Percent improvement in pain since last injection: 90% Conservative treatment options previously tried: Home exercise plan Length of treatment: Longer than 12 weeks Meds Home Medications and Allergies Home Medications ?Medication ?Instructions ?Recorded ?Confirmed ?Type alprazolam 1 mg tablet (Xanax) 1 mg PO QID Anxiety 02/06/19 11/17/24 History chlorthalidone 25 mg tablet 25 mg PO DAILY #30 tabs 04/27/24 11/17/24 Rx omeprazole 40 mg capsule,delayed 40 mg PO DAILY 07/27/24 11/17/24 History release metoprolol succinate 25 mg 25 mg PO BID #180 tabs 08/27/24 11/17/24 Rx tablet,extended release 24 hr (Toprol XL) orphenadrine citrate 100 mg 100 mg PO BID #60 tabs 09/02/24 11/17/24 Rx tablet,extended release dicyclomine 10 mg capsule 10 mg PO QID PRN abdominal 10/06/24 11/17/24 Rx pain/urgency #120 caps amlodipine 2.5 mg tablet (Norvasc) 2.5 mg PO DAILY #90 tabs 11/17/24 11/17/24 Rx valsartan 320 mg tablet 320 mg PO DAILY Hypertension 90 11/17/24 11/17/24 Rx days #90 tabs New Prescriptions to Start Prescriptions: Allergies Allergy/AdvReac Type Severity Reaction Status Date / Time Tricyclic Antidepressants Allergy Unknown Verified 11/17/24 08:29 and Tricy (TRICYCLIC COMPOUNDS) hydrocodone Allergy Verified 11/17/24 08:29 metoprolol AdvReac fatigue Verified 11/17/24 08:29 Assessment and Plan *Assessment and plan (1) Chronic right shoulder pain: Status: Acute Category: Medical Code(s): M25.511 - Pain in right shoulder; G89.29 - Other chronic pain Plan Patient has had significant improvement following his suprascapular nerve block and does not require any additional injection therapy at this time. Patient will return to clinic in 6 weeks for reevaluation of symptoms and plan of care. Patient has been instructed to contact the clinic with any concerns before the next appointment. Dr. Saxena has reviewed this note and agrees with this plan of care. This note was dictated using voice recognition software and make contain errors or omissions. All injections are used with Lidocaine, Bupivacaine and dexamethasone. Occasionally urine drug screen is needed to verify patient's compliance with our office pain contract. This is ordered based off specific treatments related to chronic pain with the potential to abuse certain medications.
[2024-11-19 15:43] VITALS: BP 136/76; PULSE 71; RESP 14; O2SAT 96; BMI 26.2
== END 2024-11-19 23:59 | disposition home or self-care (01) ==
LOC: SC.PAIN 14:58
PROVIDERS: PCP Nurse Practitioner; Visit Provider Nurse Practitioner Family
DX: M25.511 Pain in right shoulder (principal); G89.29 Other chronic pain; Z96.611 Presence of right artificial shoulder joint; Z87.891 Personal history of nicotine dependence
CPT/HCPCS: 99212; G0463

== ENCOUNTER 2024-12-17 10:09 | Day surgery (SDC) | payer OTHER, SELFPAY ==
[2024-12-17 10:19] VITALS: BMI 25.7
[2024-12-17 10:25] VITALS: BP 138/83; PULSE 63; RESP 16; TEMP 36.2; O2SAT 99
[2024-12-17] MEDS: LACTATED RINGERS 1000ML 1,000 ML 50 ML IV (10:30)
--- NOTE | 2024-12-17 10:50 | EXP.ANES.CKL ---
[facility] Disclaimer: The information contained in this section may have been updated after the patient was seen, as this information can be updated by other users. Medical History (Updated 12/17/24 @ 10:21 by Wendie Patiño) Pacemaker Ascending aorta dilation Edema Tricuspid regurgitation Mitral regurgitation Hx of cardiac pacemaker Abnormal electrocardiogram [ECG] [EKG] HARRISON (obstructive sleep apnea) Hypertension Shortness of Breath Chest pain Generalized anxiety disorder Major depressive disorder SVT (supraventricular tachycardia) Palpitations Cardiac pacemaker in situ Surgical History (Updated 12/17/24 @ 10:22 by Wendie Patiño) History of permanent cardiac pacemaker placement Hx of appendectomy History of back surgery History of right shoulder replacement Hx of left knee surgery Family History Other Cancer Heart attack Unknown family medical history Social History Smoking Status: Former smoker tobacco type: e-cigarettes and smokeless tobacco second hand exposure: No alcohol intake: current alcohol intake frequency: a few times a week substance use type: denies use current occupational status: other Travel in the last 8 weeks?: None household members: spouse and family housing: house marital status: number of children: 2 current occupational exposures/hazards: No caffeine: Yes Have you lived/traveled outside [place] in past 30 days?: No Contact w/someone who lives/traveled outside [place] past 30 days?: No Exposure to someone with infectious disease in past 14 days?: No Do you have a fever (greater than 100.4 F or 38 C)?: No Have you tested positive for COVID-19?: No Exposed to someone with COVID-19 in past 14 days?: No Do you have a sore throat?: No Do you have a cough?: No Do you have any weakness?: No Do you have any diarrhea?: No Are you experiencing any unusual bleeding?: No Do you have any muscle aches/pain?: No Do you have any abdominal pain?: No Are you experiencing loss of taste or smell?: No [facility] Anesthesia Checklist Patient Identification Patient Identification: Verbal (Name & ) Structural Data Admitted From: Home Planned Operative Procedure/s: egd Consent for Planned Operative Procedure(s) Verified: Yes NPO Status Verified Time NPO: 00:00 Additional verifications Anesthesia Reactions: No Airway Assessment Mallampati Score:: Class II C-Spine Mobility Assessed: Yes TMJ Mobility Assessed: Yes Dentition: Dentures-good fit Neurological Assessment Level of Consciousness: Awake, Alert and Appropriate Anesthesia Plan Anesthesia Risk discussed: Yes Anesthesia Plan: Verified ASA Class: II Anesthesia Type: MAC
--- NOTE | 2024-12-17 10:57 | EXP.HP ---
History of Present Illness *Admission Date: 12/17/24 *Reason for visit:: Dyspepsia/bloating *History of present illness: Mr. Purdy is a 54-year-old gentleman with functional dyspepsia, bilious vomiting, bloating and early satiety. He has some belching. He is here for diagnostic EGD. The examination is deemed medically necessary for diagnostic EGD. The patient has been seen, interviewed and examined prior to the procedure by both myself and the anesthesia provider. [facility] Disclaimer: The information contained in this section may have been updated after the patient was seen, as this information can be updated by other users. Medical History (Updated 12/17/24 @ 11:09 by Scott Patel II, MD) Pacemaker Ascending aorta dilation Edema Tricuspid regurgitation Mitral regurgitation Hx of cardiac pacemaker Abnormal electrocardiogram [ECG] [EKG] HARRISON (obstructive sleep apnea) Hypertension Shortness of Breath Chest pain Generalized anxiety disorder Major depressive disorder SVT (supraventricular tachycardia) Palpitations Cardiac pacemaker in situ Surgical History (Updated 12/17/24 @ 10:22 by Wendie Patiño) History of permanent cardiac pacemaker placement Hx of appendectomy History of back surgery History of right shoulder replacement Hx of left knee surgery Family History Other Cancer Heart attack Unknown family medical history Social History Smoking Status: Former smoker tobacco type: e-cigarettes and smokeless tobacco second hand exposure: No alcohol intake: current alcohol intake frequency: a few times a week substance use type: denies use current occupational status: other Travel in the last 8 weeks?: None household members: spouse and family housing: house marital status: number of children: 2 current occupational exposures/hazards: No caffeine: Yes Have you lived/traveled outside [place] in past 30 days?: No Contact w/someone who lives/traveled outside [place] past 30 days?: No Exposure to someone with infectious disease in past 14 days?: No Do you have a fever (greater than 100.4 F or 38 C)?: No Have you tested positive for COVID-19?: No Exposed to someone with COVID-19 in past 14 days?: No Do you have a sore throat?: No Do you have a cough?: No Do you have any weakness?: No Do you have any diarrhea?: No Are you experiencing any unusual bleeding?: No Do you have any muscle aches/pain?: No Do you have any abdominal pain?: No Are you experiencing loss of taste or smell?: No Other Medical History Have you received the Flu Vaccine for this season: No Have you received the Pneumonia Vaccine: No Review of Systems Review of Systems Review of systems (narrative): Negative *Cardiovascular Comments: Negative *Gastrointestinal Comments: Negative *Genitourinary Comments: Negative *Musculoskeletal Comments: Negative *Neurologic Comments: Negative Meds Home Medications and Allergies Home Medications ?Medication ?Instructions ?Recorded ?Confirmed ?Type alprazolam 1 mg tablet (Xanax) 1 mg PO QID Anxiety 02/06/19 12/17/24 History chlorthalidone 25 mg tablet 25 mg PO DAILY #30 tabs 04/27/24 12/17/24 Rx omeprazole 40 mg capsule,delayed 40 mg PO DAILY 07/27/24 12/17/24 History release metoprolol succinate 25 mg 25 mg PO BID #180 tabs 08/27/24 12/17/24 Rx tablet,extended release 24 hr (Toprol XL) orphenadrine citrate 100 mg 100 mg PO BID #60 tabs 09/02/24 12/17/24 Rx tablet,extended release dicyclomine 10 mg capsule 10 mg PO QID PRN abdominal 10/06/24 12/17/24 Rx pain/urgency #120 caps amlodipine 2.5 mg tablet (Norvasc) 2.5 mg PO DAILY #90 tabs 11/17/24 12/17/24 Rx valsartan 320 mg tablet 320 mg PO DAILY Hypertension 90 11/17/24 12/17/24 Rx days #90 tabs eluxadoline 75 mg tablet (Viberzi) 75 mg PO BID #60 tabs 12/03/24 12/17/24 Rx vortioxetine 20 mg tablet 25 mg PO DAILY 12/03/24 12/17/24 History (Trintellix) New Prescriptions to Start Prescriptions: Allergies Allergy/AdvReac Type Severity Reaction Status Date / Time Tricyclic Antidepressants Allergy Unknown Insomnia Verified 12/17/24 10:22 and Tricy (TRICYCLIC COMPOUNDS) hydrocodone Allergy Insomnia Verified 12/17/24 10:22 Exam Data for Last 24 hours Vital signs and Labs for Last 24 Hours: Temp Pulse Resp BP Pulse Ox O2 Del Method 97.2 F L 63 16 138/83 99 Room Air 12/17/24 10:12/17/24 10:12/17/24 10:12/17/24 10:12/17/24 10:12/17/24 10:25 I & O for Last 24 hours: Intake & Output 12/14/24 12/15/24 12/16/24 12/17/24 23:59 23:59 23:59 23:59 Weight 190 lb *Routine HEENT Exam Head: Present normocephalic Eye: Present EOMI and PERRL ENT: Present mucous membranes moist *Routine Neck Exam Neck: Present supple *Routine Respiratory Exam Respiratory: Present CTA bilaterally *Routine Cardiovascular Exam Cardiovascular: Present RRR *Routine Abdominal Exam Abdominal: Present soft and normoactive bowel sounds; Absent tenderness *Routine Rectal Exam Rectal:: deferred *Routine Genitalia Exam Genitalia:: deferred *Routine Extremities Exam Extremities: Absent cyanosis, clubbing or edema *Routine Skin Exam Skin: Present warm; Absent rash *Routine Neurological Exam Neurological: Present alert and oriented X3 Assessment and Plan *Assessment and plan (1) Bloating: Status: Acute Category: Medical Code(s): R14.0 - Abdominal distension (gaseous) (2) Vomiting: Status: Acute Category: Medical Code(s): R11.10 - Vomiting, unspecified (3) Functional dyspepsia: Status: Acute Category: Medical Code(s): K30 - Functional dyspepsia (4) Bilious vomiting: Status: Acute Category: Medical Code(s): R11.14 - Bilious vomiting (5) Early satiety: Status: Acute Category: Medical Code(s): R68.81 - Early satiety Plan With A/P: 1. Vomiting/bilious vomiting with epigastric discomfort, dyspepsia, early satiety and bloating is the preprocedural diagnosis. The patient will be anesthetized/sedated using MAC sedation. The patient has been seen and examined. Cardiac and lung assessment prior to the examination is stable. Proceed with planned diagnostic EGD.
--- NOTE | 2024-12-17 11:09 | HMH.PROCNOTE ---
[facility] [place] Procedure Note Date: 12/17/24 Time: 11:23 Procedure Note:: Upper Endoscopy Procedure Report: Esophagogastroduodenoscopy with cold biopsies Endoscopost: Scott Patel II, MD Referring Physician: Melony MILIAN Date of Procedure: December 17, 2024 Equipment: Olympus GIF 190 standard upper endoscope Sedation: MAC sedation Indications: Mr. Purdy is a 54-year-old gentleman with postprandial vomiting which is often food and bilious vomiting. The patient does report epigastric abdominal pain and dyspepsia. He reports no nausea. He does get some early satiety, bloating and gassiness. He reports no dysphagia. He is on omeprazole. He does have IBS diarrhea. He was placed on Viberzi which caused more significant bloating and this was discontinued. His fecal elastase testing was normal. He did not improve much with Xifaxan. He did have a prior EGD in August 2020. Procedure: Prior to the procedure, a history and physical exam was performed, and patient's medications and allergies were reviewed. The risks, benefits and alternatives of the sedation and procedure were discussed with the patient. All questions were answered and informed consent was obtained. The patient was brought to the procedure room. Patient identification and proposed procedure were verified by the physician and the nurse. The patient was placed in a left lateral decubitus position and the scope was passed under direct vision. Throughout the procedure, the patient's blood pressure, pulse, and oxygen saturations were monitored continuously. The upper GI endoscopy was accomplished without difficulty. The patient tolerated the procedure well. Findings: The scope was passed directly into the upper esophagus and advanced to the fourth portion of duodenum and proximal jejunum. A cold biopsy was taken from the proximal jejunum for disaccharidase assay. The proximal jejunum, post bulbar duodenum and duodenal bulb were normal with normal mucosa and conniventes. Cold biopsies were taken in the first portion and duodenal bulb to rule out celiac disease. The scope was withdrawn through a normal duodenal bulb and pylorus into the stomach. There was some linear reactive gastropathy of the antrum and body of the stomach the fundus of the stomach was normal and upon retroflexion there was a very small sliding 1 to 2 cm hiatal hernia. Cold biopsies were taken along the antrum and lesser curvature to rule out H. pylori. The scope was then withdrawn into the esophagus. There was a single tongue of salmon-colored mucosa that was biopsied to rule out short segment Hyman's esophagus. There was no evidence of reflux esophagitis. There was a proximal esophageal papilloma polyp that was removed via cold biopsy (3 to 4 mm). The remainder of the esophageal mucosa was normal. Impression: 1. Nonerosive GERD with small sliding 1 to 2 cm hiatal hernia 2. Possible short segment Hyman's esophagus (short tongues of salmon-colored mucosa biopsied) 3. Proximal esophageal papilloma 4. Linear reactive gastropathy secondary to bile reflux Plan: Most of his symptoms of vomiting and dyspepsia are related to and driven by lower intestinal gas pressure gradients/high gas pressure buildup resulting in backflow of bile and peptic fluid from the duodenum into the stomach (duodenal reflux). This gas production (carbon dioxide, hydrogen, methane, etc.) from the lower intestinal tract is the byproduct of colonic bacterial fermentation. This colonic fermentation occurs when there is more carbohydrate (dietary starches, sugars and high residue plant fiber) substrate that does not get digested (in the middle or small intestine) or occurs when there is colonic fecal buildup and colonic bacterial overgrowth. This indeed leads to bloating and the gas pressure buildup with gas pressure gradients that do drive backflow and dyspepsia. We will discuss additional treatment options today.
[2024-12-17 11:19] VITALS: BP 96/53; PULSE 67; RESP 16; TEMP 36.2; O2SAT 97
[2024-12-17 11:29] VITALS: BP 95/54; PULSE 64; RESP 16; O2SAT 97
[2024-12-17 11:39] VITALS: BP 106/64; PULSE 62; RESP 18; O2SAT 97
[2024-12-17 11:49] VITALS: BP 120/71; PULSE 63; RESP 18; O2SAT 99
[2024-12-17 12:12] VITALS: BP 120/71; PULSE 60; RESP 18; TEMP 36.2; O2SAT 99
[2024-12-22 14:11] LABS: Disclaimer Notes (.); Interpretation Notes (.); Lactase 44.02 (>/= 14.0); Maltase 276.84 (>/= 110.0); Palatinase 41.4 (>/= 8.5); Reference Notes (.); Sucrase 157.58 (>/= 25.0)
== END 2024-12-17 12:12 | disposition home or self-care (01) ==
PROVIDERS: PCP Nurse Practitioner; Visit Provider Internal Medicine Gastroenterology
PROC: 0DJ08ZZ Inspection of Upper Intestinal Tract, Via Natural or Artificial Opening Endoscopic (ICD-10-PCS; CPT 43239; principal; 2024-12-17 12:00)
DX: K21.9 Gastro-esophageal reflux disease without esophagitis (principal); K44.9 Diaphragmatic hernia without obstruction or gangrene; K31.89 Other diseases of stomach and duodenum; K22.81 Esophageal polyp; K58.0 Irritable bowel syndrome with diarrhea; G47.33 Obstructive sleep apnea (adult) (pediatric); I10 Essential (primary) hypertension; F41.1 Generalized anxiety disorder; F32.9 Major depressive disorder, single episode, unspecified; I47.10 Supraventricular tachycardia, unspecified; Z90.49 Acquired absence of other specified parts of digestive tract; Z87.891 Personal history of nicotine dependence; Z79.899 Other long term (current) drug therapy; Z88.8 Allergy status to other drugs, medicaments and biological substances; Z95.0 Presence of cardiac pacemaker; Z88.5 Allergy status to narcotic agent
CPT/HCPCS: 43239; 82657; J2003; J2704; J7120

== ENCOUNTER 2025-01-11 14:27 | Outpatient (POV) | payer OTHER, SELFPAY ==
--- OUTSIDE RECORDS SUMMARY | 2025-01-11 14:31 | XMS_ITS | Clinical Summary ---
Author Organization [facility] Address [address] [place] [address] Care Team Providers Care Strapper Name Role Phone Eduardo Mera MD Primary Care Provider [phone] Allergies Active Allergy Reactions Criticality Noted Date Comments Bupropion Unknown - Patient states they do not know rxn details Low 05/17/2015 Elevated heart rate,wired,no sleep Metoprolol Unknown - Patient states they do not know rxn details Low 05/28/2022 Paroxetine Unknown - Patient states they do not know rxn details Low 10/14/2017 Paroxetine Hcl Unknown - Patient states they do not know rxn details Low 05/17/2015 Elevated heart rate,wired,no sleep for 2 days Tricyclic Antidepressants Unknown - Marian ent states they do not know rxn details Low 05/28/2022 Medications ALPRAZolam (Xanax) 1 MG tablet Take 1 tablet (1 mg) by mouth 4 (four) times a day. Active Trintellix 20 MG tablet TAKE 1 TABLET BY MOUTH ONCE DAILY FOR DEPRESSION 3 Active valsartan (Diovan) 160 MG tablet TAKE 1 TABLET BY MOUTH ONCE DAILY FOR HYPERTENSION 3 Active omeprazole OTC (PriLOSEC OTC) 20 MG EC tablet Take 1 tablet (20 mg) by mouth 1 (one) time each day. Do not crush, chew, or split. Active Family History Medical History Relation Name Comments Colon cancer Father Relation Name Status Comments Father Social History Tobacco Use Types Packs/Day Years Used Date Smoking Tobacco: Every Day Cigarettes 0.5 15 Smokeless Tobacco: Never Alcohol Use Standard Drinks/Week Comments Yes 6 (1 standard drink = 0.6 oz pur e alcohol) Sex and Gender Information Value Date Recorded Sex Assigned at Not on file Legal Sex Male 6:09 PM EDT Gender Identity Not on file Sexual Orientation Not on file Last Filed Vital Signs Vital Sign Reading Time Taken Comments Blood Pressure 152/87 08/22/2023 12:18 PM EST Pulse 72 08/22/2023 12:18 PM EST Temperature 37.2 C (98.9 F) 07/16/2023 12:41 PM EST Respiratory Rate 24 07/16/2023 3:10 PM EST Oxygen Saturation 96% 08/22/2023 12:18 PM EST Inhaled Oxygen Concentration - - Weight 86 kg (189 lb 9.5 oz) 08/22/2023 12:18 PM EST Height 182.9 cm (6') 08/22/2023 12:18 PM EST Body Mass Index 25.71 08/22/2023 12:18 PM EST Plan of Treatment Health Maintenance Due Date Last Done Comments [facility]-Depression Screening 1972 [facility]-HIV Screening 1972 [facility]-Hepatitis C Screening 1972 [facility]-/Child/Adol SDOH Screenings 1972 [facility]- SDOH Screenings 1990 [facility]-Adult SDOH Screenings 1990 [facility]-DTaP,Tdap,and Td Vaccine s (1 - Tdap) 11/22/1991 [facility]-Hepatitis B Vaccines (1 of 3 - 19+ 3-dose series) 11/22/1991 CT Colonography 2017 Colonoscopy 2017 FIT-DNA 2017 FIT 2017 FOBT 2017 Sigmoidoscopy 2017 [facility]-Colorectal Cancer Screening 2017 [facility]-Pneumococcal Vaccine: 50 + Years (1 of 1 - PCV) 2022 [facility]-Zoster Vaccines (1 of 2) 2022 [id number] Vaccine (2 - season) 2024 12/18/2020 [facility]-Influenza Vaccine (#1) 2025 [facility]-Obesity Intervention Completed 024, 06/21/2023 HPV Vaccines Aged Out No longer eligi ble based on patient's age to complete this topic [facility]-HIB Vaccines Aged Out No longer e ligible based on patient's age to complete this topic UK[facility]-Hepatitis A Vaccines Aged Out No longer eligible based on patient's age to complete this topic UKY-IPV Vaccines Aged Out No longer e ligible based on patient's age to complete this topic UKY-Rotavirus Vaccines Aged Out No lo nger eligible based on patient's age to complete this topic Insurance [employer] Care Teams Strapper Relationship Specialty Start Date End Date Eduardo Mera MD [address] [place] [address] [address] [place] [address] PCP - General 05/03/23
--- OUTSIDE RECORDS SUMMARY | 2025-01-11 14:31 | XMS_ITS | Clinical Summary ---
Author Organization [facility] ([place], [place], [place], [place]) Address [address] [place] [address] Care Team Providers Care Histopathologist Name Role Phone Unavailable Primary Care Provider Unavailabl e Social History Tobacco Use Types Packs/Day Years Used Date Smoking Tobacco: Never Assessed Sex and Gender Information Value Date Recorded Sex Assigned at Not on file Legal Sex Male 1:16 PM CDT Gender Identity Not on file Sexual Orientation Not on file Plan of Treatment Not on file
--- OUTSIDE RECORDS SUMMARY | 2025-01-11 14:31 | XMS_ITS | Encounter Summary ---
Author Organization [facility] Address [address] [place] [address] Care Team Providers Care Driveway Sealer Name Role Phone Melony Adame APRN Primary Care Provider [phone] Eduardo Mera MD Primary Care Provider [phone] Reason for Referral * Consultation (Routine) - Closed Specialty Diagnoses / Procedures Referred By Contac t Referred To Contact Orthopaedic Surgery Diagnoses Osteoarthritis of spine with radiculopathy, cervical region Luke Blandon DO [address] [place] [address] Phone: tel: fax: Medical Office [facility] [address], [address] [place] [address] Phone: tel: fax: Referral ID Status Reason Start Date Expiration Date Visits Re quested Visits Authorized [id number] Closed 04/30/2023 10/29/2024 1 1 Encounter Details Date Type Department Care Team (Latest Contact Info) Description 04/30/2023 Community [facility] [address] [place] [address] Luke Blandon DO [address] [place] [address] [place] [facility] Osteoarthritis of spine with radiculopathy, cervical region (Primary Dx) Social History Tobacco Use Types Packs/Day Years Used Date Smoking Tobacco: Every Day Sex and Gender Information Value Date Recorded Sex Assigned at Not on file Legal Sex Male 6:09 PM EDT Gender Identity Not on file Sexual Orientation Not on file documented as of this encounter Plan of Treatment Scheduled Referrals Name Type Priority Associated Diagnoses Order Schedule Ambulatory referral to Orthopaedics Spine Outpatient Referral Routine Osteoarthritis of spine with radiculopathy, cervical region Expected: 04/30/2023 (Approximate), Expires: 10/29/2024 documented as of this encounter Visit Diagnoses Diagnosis Osteoarthritis of spine with radiculopathy, cervical region- Primary documented in this encounter Care Teams Driveway Sealer Relationship Specialty Start Date End Date Melony Adame APRN [address] [place] [address] PCP - General 11/18/20 05/02/23 Eduardo Mera MD [address] [place] [address] [address] [place] [address] PCP - General 05/03/23 documented as of this encounter
--- OUTSIDE RECORDS SUMMARY | 2025-01-11 14:31 | XMS_ITS | Referral Summary ---
Author Organization [facility] ([place], [place], [place], [place]) Address [address] [place] [address] Care Team Providers Care Rn Wound Care Name Role Phone Unavailable Primary Care Provider [...]
[2025-01-11 14:58] VITALS: BP 123/56; PULSE 77; RESP 14; O2SAT 97; BMI 27.1
--- NOTE | 2025-01-11 14:58 | EXP.PAIN.SOA ---
[facility] Disclaimer: The information contained in this section may have been updated after the patient was seen, as this information can be updated by other users. Medical History Pacemaker Ascending aorta dilation Edema Tricuspid regurgitation Mitral regurgitation Hx of cardiac pacemaker Abnormal electrocardiogram [ECG] [EKG] HARRISON (obstructive sleep apnea) Hypertension Shortness of Breath Chest pain Generalized anxiety disorder Major depressive disorder SVT (supraventricular tachycardia) Palpitations Cardiac pacemaker in situ Surgical History History of permanent cardiac pacemaker placement Hx of appendectomy History of back surgery History of right shoulder replacement Hx of left knee surgery Family History Other Cancer Heart attack Unknown family medical history Social History Smoking Status: Former smoker tobacco type: e-cigarettes and smokeless tobacco second hand exposure: No alcohol intake: current alcohol intake frequency: a few times a week substance use type: denies use current occupational status: other Travel in the last 8 weeks?: None household members: spouse and family housing: house marital status: number of children: 2 current occupational exposures/hazards: No caffeine: Yes PM Subjective & Objective Subjective Subjective:: Patient is a pleasant 54-year-old male who presents today for worsening right shoulder pain. He rates his pain a 6 out of 10. He denies any new falls or injuries. He does feel like his last injection has really started to wear off. Patient is noticing more pain on a daily basis and is starting to interfere with his ability perform his activities of daily living such as cooking and cleaning. Patient has continued conservative therapy with no additional improvement. Patient has been to see multiple specialties for the shoulder pain including orthospine with Dr. Carlos Blandon, orthopedics here including Dr. Nuñez and Dr. Edvin Blandon. Patient does state that he always got different responses whether he needed a shoulder scope both versus total shoulder replacement versus reverse total shoulder. Patient states that the injections really do help and he would like to see about getting scheduled for another however is asking how many of these injections he can do over time. His Santosh has been reviewed and is appropriate. Review of Systems: General: No recent weight changes, no fever, no sleep disturbances Respiratory: No cough, no shortness of air, no recurring pulmonary infections Cardiovascular/peripheral vascular: No chest pain, no palpitations, no edema, no shortness of breath Gastrointestinal: No new onset incontinence, normal bowel movements reported Genitourinary: No new onset incontinence Musculoskeletal: Right shoulder pain Psychiatric: [Normal mood/affect] Neurological: [Denies weakness in extremities], [denies balance issues] Pain at rest (0-10 scale): 6 Objective Objective:: Physical Exam: General: Alert and oriented x3, no acute distress, pleasant and cooperative Lungs: Respirations even and unlabored, symmetrical chest expansion Eyes: PERRL Musculoskeletal: Flexion and extension of right shoulder somewhat guarded secondary to pain, [antalgic gait noted] Neurological: Speech clear, no gross sensory deficit Has patient had previous pain injection?: No Conservative treatment options previously tried: Home exercise plan Length of treatment: Longer than 12 weeks Meds Home Medications and Allergies Home Medications ?Medication ?Instructions ?Recorded ?Confirmed ?Type alprazolam 1 mg tablet (Xanax) 1 mg PO QID Anxiety 02/06/19 01/11/25 History chlorthalidone 25 mg tablet 25 mg PO DAILY #30 tabs 04/27/24 01/11/25 Rx omeprazole 40 mg capsule,delayed 40 mg PO DAILY 07/27/24 01/11/25 History release metoprolol succinate 25 mg 25 mg PO BID #180 tabs 08/27/24 01/11/25 Rx tablet,extended release 24 hr (Toprol XL) orphenadrine citrate 100 mg 100 mg PO BID #60 tabs 09/02/24 01/11/25 Rx tablet,extended release dicyclomine 10 mg capsule 10 mg PO QID PRN abdominal 10/06/24 01/11/25 Rx pain/urgency #120 caps amlodipine 2.5 mg tablet (Norvasc) 2.5 mg PO DAILY #90 tabs 11/17/24 01/11/25 Rx valsartan 320 mg tablet 320 mg PO DAILY Hypertension 90 11/17/24 01/11/25 Rx days #90 tabs eluxadoline 75 mg tablet (Viberzi) 75 mg PO BID #60 tabs 12/03/24 01/11/25 Rx Creon 36,000 unit-114,000 1 cap PO .With meals #100 caps 12/17/24 01/11/25 Rx unit-180,000 unit capsule,delayed release (helkdx-axnjaktv-radwuqs) metoclopramide HCl 10 mg tablet 10 mg PO AC #60 tabs 12/17/24 01/11/25 Rx lamotrigine 25 mg tablet (Lamictal) 25 mg PO DAILY 28 days #42 tabs 12/24/24 01/11/25 Rx vortioxetine 20 mg tablet 20 mg PO DAILY 12/24/24 01/11/25 History (Trintellix) New Prescriptions to Start Prescriptions: Allergies Allergy/AdvReac Type Severity Reaction Status Date / Time Tricyclic Antidepressants Allergy Unknown Insomnia Verified 12/24/24 10:36 and Tricy (TRICYCLIC COMPOUNDS) hydrocodone Allergy Insomnia Verified 12/24/24 10:36 Assessment and Plan *Assessment and plan (1) Chronic right shoulder pain: Status: Acute Category: Medical Code(s): M25.511 - Pain in right shoulder; G89.29 - Other chronic pain Plan [facility] FINDINGS: CT UPPER EXTREMITY W/CONTRAST Axial CT images were performed of the right shoulder at through the intra-articular injection of contrast. Coronal and sagittal reformatted images were submitted. This study was performed with techniques to keep radiation doses as low as reasonably achievable, (ALARA). Individualized dose reduction techniques using automated exposure control or adjustment of mA and/or kV according to the patient's size were employed. Postoperative changes are seen in the anterior humeral head. There is no acute fracture. There is no evidence of contrast leakage to the bursa. The rotator cuff tendons are intact. There is a full-thickness cartilage defect of the posterior glenoid. Contrast at the base of the superior labrum favors a sublabral foramen over a tear. There is no definite labral tear. IMPRESSION: Postoperative change of the anterior humeral head. Full-thickness cartilage defect of the posterior glenoid. Contrast at the base of the superior labrum favors a sublabral foramen over labral tear. Reviewed, Interpreted and Dictated by Steven Jones III, MD Transcribed by Charli Acosta Authenticated and ERN FREEDOM I did discuss with the patient that his last imaging was from 2022 of his shoulder. I will put in a new order of x-ray imaging with the plan in future to proceed forward with an MRI. Patient was also counseled that we can send him for referral from our orthopedics coming up. I did discuss with his limited range of motion and that he may benefit from a repeat right suprascapular nerve block. Risk and benefits were discussed with patient and he would like to proceed forward with this plan of care. Patient has tried and failed conservative therapy including oral medications, heat and ice, topicals, previous physical therapy and continued at home stretching exercise for longer than 12 weeks. Patient has had chronic shoulder pain for longer than 6 months. Patient will be scheduled for a repeat right suprascapular nerve block without fluoroscopic or ultrasound guidance. Patient's last nerve block did provide 90% relief in October and did last approximately 2-1/2 months. Patient has been instructed to contact the clinic with any concerns before the next appointment. Dr. Saxena has reviewed this note and agrees with this plan of care. This note was dictated using voice recognition software and make contain errors or omissions. All injections are used with Lidocaine, Bupivacaine and dexamethasone. Occasionally urine drug screen is needed to verify patient's compliance with our office pain contract. This is ordered based off specific treatments related to chronic pain with the potential to abuse certain medications.
== END 2025-01-11 23:59 | disposition home or self-care (01) ==
PROVIDERS: PCP Nurse Practitioner; Visit Provider Nurse Practitioner Family
DX: M25.511 Pain in right shoulder (principal); G89.29 Other chronic pain
CPT/HCPCS: 99212; G0463

== ENCOUNTER 2025-01-26 13:44 | Day surgery (SDC) | payer OTHER, SELFPAY ==
[2025-01-26 13:57] VITALS: BP 97/61; PULSE 71; RESP 18; O2SAT 96; BMI 27.8
[2025-01-26] MEDS: BUPIVACAINE 0.25% 10ML INJ 25 MG IJ (14:08)
[2025-01-26 14:09] VITALS: BP 103/64; PULSE 72; RESP 18; O2SAT 96
[2025-01-26] MEDS: LIDOCAINE 1% 5ML PF VIAL 5 ML (14:09)
[2025-01-26] MEDS: DEXAMETHASONE 10MG/ML 1ML VIAL 10 MG (14:09)
[2025-01-26 14:10] VITALS: BP 103/64; PULSE 72; RESP 18; O2SAT 96
[2025-01-26 14:13] VITALS: BP 127/65; PULSE 57; RESP 16; O2SAT 97
--- NOTE | 2025-01-26 14:15 | EXP.PAIN.PRO ---
Procedure Date: 01/26/25 Time: 14:05 Anesthesiologist:: Vincent Ahuja CRNA Complications:: None Pre-procedure Diagnosis:: DJD right shoulder. Chronic right shoulder pain. Post-procedure Diagnosis:: Same Indications for Procedure:: Patient is a pleasant 54-year-old male who comes our clinic today for right suprascapular nerve block. Patient has had this injection in the past. He reports 2 months of significant improvement. Patient describes right shoulder pain as constant, dull, aching. He is status post right shoulder rotator cuff repair 2012. He rates pain 6/10. Procedure Details:: Details of the procedure explained to the patient. The patient taken procedure and placed in the sitting position. The over the right shoulder and scapula was cleaned using chlorhexidine as a cleansing solution. Using a 25-gauge inch and half needle the right suprascapular notch was identified. After negative aspiration 4 cc of 1% lidocaine +4 cc of 0.25% Marcaine and 10 mg of dexamethasone was injected. Patient tolerated procedure without difficulty. No complications. Plan and Disposition:: Patient was discharged without incident.
== END 2025-01-26 14:13 | disposition home or self-care (01) ==
PROVIDERS: PCP Nurse Practitioner; Visit Provider Nurse Anesthetist, Certified Registered
DX: G89.29 Other chronic pain (principal); M25.511 Pain in right shoulder; M19.011 Primary osteoarthritis, right shoulder; I77.810 Thoracic aortic ectasia; F32.9 Major depressive disorder, single episode, unspecified; F41.1 Generalized anxiety disorder; I10 Essential (primary) hypertension; G47.33 Obstructive sleep apnea (adult) (pediatric); I08.1 Rheumatic disorders of both mitral and tricuspid valves; Z87.891 Personal history of nicotine dependence; Z88.5 Allergy status to narcotic agent; Z95.0 Presence of cardiac pacemaker; Z88.8 Allergy status to other drugs, medicaments and biological substances; Z79.899 Other long term (current) drug therapy
CPT/HCPCS: 64418; J0665; J1100; J2003

== ENCOUNTER 2025-02-15 13:58 | Outpatient (POV) | payer OTHER, SELFPAY ==
[2025-02-15 14:04] VITALS: BP 110/79; PULSE 98; RESP 16; O2SAT 98; BMI 25.7
--- OUTSIDE RECORDS SUMMARY | 2025-02-15 14:11 | XMS_ITS | Clinical Summary ---
Author Organization [facility] Address [address] [place] [address] Care Team Providers Care Furnace Mason Name Role Phone Eduardo Mera MD Primary Care Provider [phone] Allergies Active Allergy Reactions Criticality Noted Date [...] [facility]-HIV Screening 1972 [facility]-Hepatitis C Screening 1972 [facility]-Infant/Child/Adol SDOH Screenings 1972 [facility]- SDOH Screenings 1990 [...] 2022 [facility]-Zoster Vaccines (1 of 2) 2022 [id number] Vaccine (2 - season) 2024 12/18/2020 [facility]-Influenza [...] Insurance [employer] Care Teams Furnace Mason Relationship Specialty Start Date End Date Eduardo Mera MD [address] [place] [address] [address] [place] [address] PCP - General 05/03/23
--- OUTSIDE RECORDS SUMMARY | 2025-02-15 14:11 | XMS_ITS | Encounter Summary ---
Author Organization [facility] Address [address] [place] [address] Care Team Providers Care Aerophysics Engineer Name Role Phone Melony Adame APRN Primary Care Provider [phone] Eduardo Mera MD Primary Care Provider [phone] Reason for Referral * Consultation (Routine) - Closed Specialty Diagnoses / Procedures Referred By Contac t Referred To Contact Orthopaedic Surgery Diagnoses Osteoarthritis of spine with radiculopathy, cervical region Luke Blandon DO [address] [place] [address] Phone: tel: fax: Medical Office [facility] [address], [address] [place] [address] Phone: tel: fax: Referral ID Status Reason Start Date Expiration Date Visits Re quested Visits Authorized [id number] Closed 04/30/2023 10/29/2024 1 1 Encounter Details Date Type Department Care Team (Latest Contact Info) Description 04/30/2023 Community [facility] [address] [place] [address] Luke Blandon DO [address] [place] [address] [place] [facility]31 Osteoarthritis of spine with radiculopathy, cervical [...] Primary documented in this encounter Care Teams Aerophysics Engineer Relationship Specialty Start Date End Date Melony Adame APRN [address] [place] [address] PCP - General 11/18/20 05/02/23 Eduardo Mera MD [address] [place] [address] [address] [place] [address] PCP - General 05/03/23 documented as of this encounter
--- OUTSIDE RECORDS SUMMARY | 2025-02-15 14:11 | XMS_ITS | Clinical Summary ---
Author Organization [facility] Arrhythmia [facility] Address [address] [place] [address] Phone Care Team Providers Care Answering Service Agent Name Role Phone Juan Luis Kaminski Primary Care Provider [phone] Allergies Active Allergy Reactions Criticality Noted Date Comments Paroxetine Hcl 05/17/2015 Elevated heart rate,wired,no sleep for 2 days Bupropion Hcl 05/17/2015 Elevated heart rate,wired,no sleep Medications ALPRAZolam (XANAX) 1 mg Oral Tablet Take 1 mg by mouth 3 times daily. Active valsartan (DIOVAN) 160 mg Oral Tablet Take 160 mg by mouth daily. 2 Active TRINTELLIX 20 mg Oral tablet TAKE 1 TABLET BY MOUTH ONCE DAILY FOR DEPRESSION 2 Active penicillin v potassium (VEETID) 500 mg Oral Tablet TAKE 1 TABLET BY MOUTH THREE TIMES DAILY UNTIL GONE 3 Active zolpidem (AMBIEN) 5 mg Oral Tablet TAKE 1 TABLET BY MOUTH ONCE DAILY AT BEDTIME DIRECTED (FOR SLEEP TEST. DO NOT DRIVE) 3 Active metoprolol succinate (TOPROL-XL) 50 mg Oral Tablet Sustained Release 24 hr Take 1 Tablet by mouth daily. 30 Tablet 5 3 Active Active Problems Problem Noted Date Diagnosed Date Pacemaker 06/26/2022 Overview (09/21/2022): Ramirez D PPM implanted 06/20/[address] Mitchell Bradycardia Hyperlipidemia Anxiety Tobacco abuse SVT (supraventricular tachycardia) Acid reflux Night sweats Surgical History Surgery Date Site/Laterality Comments APPENDECTOMY BACK SURGERY Disectomy x3 KNEE SURGERY Left ROTATOR CUFF REPAIR CARDIAC CATHETERIZATION 03/2015 No stenting NOSE SURGERY sinus ABLATION OF DYSRHYTHMIC FOCUS 05/19/15 EPS + SVT ablation-Dr. Brown Medical History Medical History Date Comments Bradycardia Anxiety Tobacco abuse SVT (supraventricular tachycardia) Night sweats LOPEZ (dyspnea on exertion) only w ith svt Angina pectoris with svt episode s,dr brown aware Acid reflux possible Family History Medical History Relation Name Comments Heart Attack Father Hypertension Father Sudden Father Diabetes Maternal Grandmother Cancer Mother Relation Name Status Comments Father (Age 69) [place] Maternal Grandmother Mother (Age 55) Malignant Neoplastic Disease (Breast) Social History Tobacco Use Types Packs/Day Years Used Date Smoking Tobacco: Every Day Cigarettes 0.5 20 Smokeless Tobacco: Never Tobacco Cessation:Ready to Q uit: Not Asked; Counseling Given: Not Answered Alcohol Use Standard Drinks/Week Comments Yes 0 (1 standard drink = 0.6 oz pur e alcohol) rare Sex and Gender Information Value Date Recorded Sex Assigned at Not on file Legal Sex Male 2:09 PM EDT Gender Identity Not on file Sexual Orientation Not on file Obstetrics History Last Filed Vital Signs Vital Sign Reading Time Taken Comments Blood Pressure 132/84 10/01/2022 10:55 AM EDT Pulse 70 10/01/2022 10:55 AM EDT Temperature 37.1 C (98.7 F) 05/19/2015 12:20 PM EST Respiratory Rate 20 05/19/2015 3:00 PM EST Oxygen Saturation 98% 10/01/2022 10:55 AM EDT Inhaled Oxygen Concentration - - Weight 83 kg (183 lb) 10/01/2022 10:55 AM EDT Height 177.8 cm (5' 10 ) 08/01/2015 2:25 PM EST Body Mass Index 26.26 08/01/2015 2:25 PM EST Plan of Treatment Health Maintenance Due Date Last Done Comments DTaP/TDaP/Td (1 - Tdap) 11/22/1991 Hepatitis B Vaccine (1 of 3 - 19+ 3-dose series) 11/22/1991 Pneumococcal Vaccine 50+ (1 of 2 - PCV) 11/22/1991 Annual Wellness Exam 05/11/2016 05/11/2015 (Postponed) Cologuard 2017 Colon Cancer Screening 2017 Colonoscopy 2017 FIT 2017 Sigmoidoscopy 2017 Virtual Colonography 2017 Zoster (1 of 2) 2022 COVID-19 Vaccine (1 - 2023-2 5 season) 2024 Influenza Vaccine (#1) 2025 5 (Postponed) Meningococcal B Vaccine Aged Out No l onger eligible based on patient's age to complete this topic Insurance [facility] [id number] Care Teams Answering Service Agent Relationship Specialty Start Date End Date Juan Luis Kaminski [address] [place] [id number] PCP - General Family Medicine 05/16/15
--- OUTSIDE RECORDS SUMMARY | 2025-02-15 14:11 | XMS_ITS | Referral Summary ---
Author Organization [employer] ([place], [place], [place], [place]) Address [address] [place] [address] Care Team Providers Care Vp Strategic Partnerships Name Role Phone Unavailable Primary Care Provider [...]
--- OUTSIDE RECORDS SUMMARY | 2025-02-15 14:11 | XMS_ITS | Encounter Summary ---
Author Organization [place] [address] Care Team Providers Care Activity Leader Name Role Phone Juan Luis Kaminski Primary Care Provider Encounter Details Date Type Department Care Team (Late st Contact Info) Description 05/19/2015 Orders Only [facility] Edg [address] [place] [address] Hussain Brown MD [address] [id number] Social History Tobacco Use Types Packs/Day Years Used Date Smoking Tobacco: Every Day Cigarettes 0.5 20 Smokeless Tobacco: Never Alcohol Use Standard Drinks/Week Comments Yes 0 (1 standard drink = 0.6 oz pur e alcohol) rare Sex and Gender Information Value Date Recorded Sex Assigned at Not on file Legal Sex Male 2:09 PM EDT Gender Identity Not on file Sexual Orientation Not on file documented as of this encounter Plan of Treatment Not on file documented as of this encounter Procedures Procedure Name Priority Date/Time Associated Diagnosis Comments EP LAB RECORDINGS Routine 05/19/2015 9:37 AM EST documented in this encounter Results * EP LAB RECORDINGS (05/19/2015 9:37 AM EST) 05/19/2015 9:37 AM EST us Hussain Brown MD CARDIAC CATH ORDERABLES Final Result Performing Organization Address City/State/[facility] Co de Phone Number [facility] [address] [phone] documented in this encounter Visit Diagnoses Not on filedocumented in this encounter Care Teams Activity Leader Relationship Specialty Start Date End Date Juan Luis Kaminski [address] [place] [address] PCP - General Family Medicine 05/16/15 documented as of this encounter
--- OUTSIDE RECORDS SUMMARY | 2025-02-15 14:11 | XMS_ITS | Clinical Summary ---
Author Organization [facility] ([place], [place], [place], [place]) Address [address] [place] [address] Care Team Providers Care Sr. Payroll Manager Name Role Phone Unavailable Primary Care Provider [...]
--- NOTE | 2025-02-15 14:30 | EXP.PAIN.SOA ---
[facility] Disclaimer: The information contained in this section may have been updated after the patient was seen, as this information can be updated by other users. Medical History Pacemaker Ascending aorta dilation Edema Tricuspid regurgitation Mitral regurgitation Hx of cardiac pacemaker Abnormal electrocardiogram [ECG] [EKG] HARRISON (obstructive sleep apnea) Hypertension Shortness of Breath Chest pain Generalized anxiety disorder Major depressive disorder SVT (supraventricular tachycardia) Palpitations Cardiac pacemaker in situ Surgical History History of permanent cardiac pacemaker placement Hx of appendectomy History of back surgery History of right shoulder replacement Hx of left knee surgery Family History Other Cancer Heart attack Unknown family medical history Social History Smoking Status: Former smoker tobacco type: e-cigarettes and smokeless tobacco second hand exposure: No alcohol intake: current alcohol intake frequency: a few times a week substance use type: denies use current occupational status: other Travel in the last 8 weeks?: None household members: spouse and family housing: house marital status: number of children: 2 current occupational exposures/hazards: No caffeine: Yes PM Subjective & Objective Subjective Subjective:: Patient pleasant 54-year-old male who presents for follow-up of his right suprascapular block on 720 He states today that it actually seemed very delayed on this injection. He states that it has just started to improve the last 2 to 3 days with writing approximately 40% or more improvement. He does state that every day seems to be a little bit better. Patient is however complaining more of neck pain with numbness and tingling that goes down into his hands and wakes him up in the middle of the night. He states this is interfering with his ability perform activities of daily living such as cooking and cleaning. Patient is interested in additional options we may be able to do for this pain. Patient has had a cervical epidural in the past and overall improved function his Santosh has been reviewed and is appropriate. Review of Systems: General: No recent weight changes, no fever, no sleep disturbances Respiratory: No cough, no shortness of air, no recurring pulmonary infections Cardiovascular/peripheral vascular: No chest pain, no palpitations, no edema, no shortness of breath Gastrointestinal: No new onset incontinence, normal bowel movements reported Genitourinary: No new onset incontinence Musculoskeletal: Neck pain, headaches, numbness and tingling bilateral arms and hands Psychiatric: [Normal mood/affect] Neurological: [Denies weakness in extremities], [denies balance issues] Pain at rest (0-10 scale): 6 Objective Objective:: Physical Exam: General: Alert and oriented x3, no acute distress, pleasant and cooperative Lungs: Respirations even and unlabored, symmetrical chest expansion Eyes: PERRL Musculoskeletal: Flexion and extension of cervical [spine] somewhat guarded secondary to pain, [antalgic gait noted] positive Spurling's test Neurological: Speech clear, no gross sensory deficit Has patient had previous pain injection?: Yes Percent improvement in pain since last injection: More than 40% Conservative treatment options previously tried: Home exercise plan Length of treatment: Longer than 12 weeks Meds Home Medications and Allergies Home Medications ?Medication ?Instructions ?Recorded ?Confirmed ?Type alprazolam 1 mg tablet (Xanax) 1 mg PO QID Anxiety 02/06/19 02/15/25 History chlorthalidone 25 mg tablet 25 mg PO DAILY #30 tabs 04/27/24 02/15/25 Rx omeprazole 40 mg capsule,delayed 40 mg PO DAILY 07/27/24 02/15/25 History release metoprolol succinate 25 mg 25 mg PO BID #180 tabs 08/27/24 02/15/25 Rx tablet,extended release 24 hr (Toprol XL) orphenadrine citrate 100 mg 100 mg PO BID #60 tabs 09/02/24 02/15/25 Rx tablet,extended release dicyclomine 10 mg capsule 10 mg PO QID PRN abdominal 10/06/24 02/15/25 Rx pain/urgency #120 caps amlodipine 2.5 mg tablet (Norvasc) 2.5 mg PO DAILY #90 tabs 11/17/24 02/15/25 Rx valsartan 320 mg tablet 320 mg PO DAILY Hypertension 90 11/17/24 02/15/25 Rx days #90 tabs eluxadoline 75 mg tablet (Viberzi) 75 mg PO BID #60 tabs 12/03/24 02/15/25 Rx Creon 36,000 unit-114,000 1 cap PO .With meals #100 caps 12/17/24 02/15/25 Rx unit-180,000 unit capsule,delayed release (mpjyno-awgchmlv-jaiaiub) metoclopramide HCl 10 mg tablet 10 mg PO AC #60 tabs 12/17/24 02/15/25 Rx lamotrigine 25 mg tablet (Lamictal) 50 mg (2 x 25 mg) PO DAILY 30 days 01/25/25 02/15/25 Rx #60 tabs lamotrigine 25 mg tablet (Lamictal) 25 mg PO DAILY 28 days #42 tabs 02/03/25 02/15/25 Rx vortioxetine 20 mg tablet 20 mg PO DAILY #30 tabs 02/03/25 02/15/25 Rx (Trintellix) New Prescriptions to Start Prescriptions: Allergies Allergy/AdvReac Type Severity Reaction Status Date / Time Tricyclic Antidepressants Allergy Unknown Insomnia Verified 02/02/25 09:41 and Tricy (TRICYCLIC COMPOUNDS) hydrocodone Allergy Insomnia Verified 02/02/25 09:41 Assessment and Plan *Assessment and plan (1) Cervical radiculopathy: Status: Acute Category: Medical Code(s): M54.12 - Radiculopathy, cervical region (2) Degenerative joint disease of cervical spine: Status: Acute Qualifiers: Spinal osteoarthritis complication: with radiculopathy Qualified Code(s): M47.22 - Other spondylosis with radiculopathy, cervical region Category: Medical Code(s): M47.812 - Spondylosis without myelopathy or radiculopathy, cervical region Plan Patient is experiencing worsening pain in their neck with radiating tingling and burning sensations into their bilateral upper extremities. Patient did have limited range of motion of her cervical spine with a positive Spurling's test. I did discuss with the patient that I do believe they would benefit from a cervical epidural steroid injection. Risk and benefits were discussed with patient and they would like to proceed forward with this plan of care. Patient has tried and failed conservative therapy including oral medications, heat and ice, topicals, at home stretching exercise for longer than 12 weeks that was physician guided. Patient previously had his last cervical epidural in August that did provide more than 50% improvement and lasted longer than 3 months. Patient had overall improved function with decreased pain. Patient will be scheduled for a FABRICIO C6-C7 under fluoroscopy. Patient denies any blood thinners. Patient has been instructed to contact the clinic with any concerns before the next appointment. Dr. Saxena has reviewed this note and agrees with this plan of care. This note was dictated using voice recognition software and make contain errors or omissions. All injections are used with Lidocaine, Bupivacaine and dexamethasone unless otherwise stated as a diagnostic in which it has no steroid. Occasionally urine drug screen is needed to verify patient's compliance with our office pain contract. This is ordered based off specific treatments related to chronic pain with the potential to abuse certain medications.
== END 2025-02-15 23:59 | disposition home or self-care (01) ==
LOC: SC.PAIN 13:59
PROVIDERS: PCP Nurse Practitioner; Visit Provider Nurse Practitioner Family
DX: M47.22 Other spondylosis with radiculopathy, cervical region (principal)
CPT/HCPCS: 99212; G0463

== ENCOUNTER 2025-04-20 08:00 | Day surgery (SDC) | payer OTHER, SELFPAY ==
[2025-04-20 08:23] VITALS: BP 136/82; PULSE 60; RESP 16; O2SAT 98; BMI 27.1
[2025-04-20 08:34] VITALS: BP 134/83; PULSE 60; RESP 18; O2SAT 95
[2025-04-20] MEDS: DEXAMETHASONE 10MG/ML 1ML VIAL 10 MG (08:34)
[2025-04-20 08:35] VITALS: BP 134/83; PULSE 60; RESP 18; O2SAT 95
[2025-04-20 08:40] VITALS: BP 131/81; PULSE 60; RESP 16; O2SAT 100
[2025-04-20] MEDS: IOPAMIDOL-200 (41%);10ML VIAL 2 ML IV (08:41)
--- NOTE | 2025-04-20 08:53 | P.PCN_ITS ---
Procedure Date: 04/20/25 Time: 08:30 Anesthesiologist:: Moris Ahuja CRNA Complications:: None Pre-procedure Diagnosis:: Degenerative disc cervical spine multilevels. Cervical radiculopathy. Post-procedure Diagnosis:: Same. Indications for Procedure:: Patient is a very pleasant 54-year-old male who comes our clinic today for cervical epidural steroid injection. Patient describes moderate improvement with previous injections in the cervical spine. He reports posterior cervical neck pain right greater than left. Right occipital and parietal headaches. Right shoulder and arm radicular symptoms. He rates his pain 7/10. Procedure Details:: Procedure:Cervical epidural steroid injection Informed consent was obtained and the risks and benefits of the procedure were explained to the patient. The patient was taken to the procedure room and noninvasive monitors placed, including noninvasive blood pressure cuff and pulse oximeter. The neck was prepped using Chloraprep as a cleansing solution. The C6- C7 interspace was viewed using fluroscopy. The skin and subcutaneous tissues were anesthetized using lidocaine 1.5% and a 25-gauge needle. After this an 18- gauge Touhy epidural needle was placed into the C6-C7 interspace under fluroscopy guidance and advanced using loss of resistance to air until the epidural space was encountered. After confirmation of needle placement in the epidural space using contrast dye, dexamethasone 10 mg ( 1 ML) was incrementally injected into the cervical epidural space.~ The patient tolerated the procedure well with no complications. The patient was observed in the Pain Clinic and then discharged home neurologically intact. Plan and Disposition:: Patient was discharged without incident.
== END 2025-04-20 08:40 | disposition home or self-care (01) ==
LOC: SC.PAINP 08:01
PROVIDERS: PCP Nurse Practitioner; Visit Provider Nurse Anesthetist, Certified Registered
DX: M50.123 Cervical disc disorder at C6-C7 level with radiculopathy (principal); F41.1 Generalized anxiety disorder; F32.9 Major depressive disorder, single episode, unspecified; I10 Essential (primary) hypertension; Z95.0 Presence of cardiac pacemaker; Z88.8 Allergy status to other drugs, medicaments and biological substances; Z88.5 Allergy status to narcotic agent; Z87.891 Personal history of nicotine dependence; Z98.890 Other specified postprocedural states; Z79.899 Other long term (current) drug therapy
CPT/HCPCS: 62321; J1100; Q9966

== ENCOUNTER 2025-05-10 19:00 | Emergency (ER) | payer OTHER, SELFPAY ==
[2025-05-10] VITALS (7 sets, daily range): BP systolic 115–147; BP diastolic 77–88; PULSE 71–94; RESP 16–24; TEMP 36.6–36.9; O2SAT 95–98; BMI 40.4
--- NOTE | 2025-05-10 19:01 | ECG_ITS ---
APPROVED REPORT Exam: Resting ECG HR:91 bpm ECG Measurements Heart Rate 91 AXES NH 146 P 74 QRSd 90 QRS 81 QT 352 T 44 QTc 401 Conclusion SINUS RHYTHM NORMAL ECG UNCONFIRMED REPORT Normal sinus rhythm. No ST elevation or depression. QTc of 401 Electronically signed by : KRIS VALADEZ, 05/13/2025 21:03:26
--- OUTSIDE RECORDS SUMMARY | 2025-05-10 19:07 | XMS_ITS | Clinical Summary ---
Author Organization [facility] Address [address] [place] [address] Phone Care Team Providers Care Cardiology Consultants Name Role Phone Juan Luis Kaminski Primary Care Provider Allergies Active Allergy Reactions Criticality Noted Date [...] Relation Name Status Comments Father (Age 69) [place] Maternal Grandmother Mother (Age 55) Malignant Neoplastic [...] of 2) 2022 COVID-19 Vaccine (1 - 2024-2 6 season) 2025 Influenza Vaccine (#1) 2025 5 (Postponed) Meningococcal B Vaccine Aged Out No l onger eligible based on patient's age to complete this topic Insurance [facility] [id number] Care Teams Cardiology Consultants Relationship Specialty Start Date End Date Juan Luis Kaminski [address] [place] [address] PCP - General Family Medicine 05/16/15
--- OUTSIDE RECORDS SUMMARY | 2025-05-10 19:07 | XMS_ITS | Encounter Summary ---
Author Organization [place] [address] Care Team Providers Care Independent Living Advisor Name Role Phone Juan Luis Kaminski Primary Care Provider Encounter Details Date Type Department Care Team (Late st Contact Info) Description 05/19/2015 Orders Only [facility] Arrhythmia Ctr Edg [address] [place] [address] Hussain Brown MD [address] [phone] Social History Tobacco Use Types Packs/Day Years [...] CATH ORDERABLES Final Result Performing Organization Address City/State/[facility] Co de Phone Number [facility] [address] [phone] documented in this encounter Visit Diagnoses Not on filedocumented in this encounter Care Teams Independent Living Advisor Relationship Specialty Start Date End Date Juan Luis Kaminski [address] [place] [address] PCP - General Family Medicine 05/16/15 documented as of this encounter
--- OUTSIDE RECORDS SUMMARY | 2025-05-10 19:07 | XMS_ITS | Clinical Summary ---
Author Organization [facility] Address [address] [place] [address] Care Team Providers Care Hairspring Vibrator Name Role Phone Eduardo Mera MD Primary Care Provider [phone] Allergies Active Allergy Reactions Criticality Noted Date [...] 2022 [facility]-Zoster Vaccines (1 of 2) 2022 [id number] Vaccine (2 - 2024- season) 2025 12/18/2020 [facility]-Influenza Vaccine (#1) 2025 [facility]-Obesity Intervention [...] Insurance [employer] Care Teams Hairspring Vibrator Relationship Specialty Start Date End Date Eduardo Mera MD [address] [place] [address] [address] [place] [address] PCP - General 05/03/23
--- OUTSIDE RECORDS SUMMARY | 2025-05-10 19:07 | XMS_ITS | Encounter Summary ---
Author Organization [facility] Address [address] [place] [address] Care Team Providers Care Vp Outcomes Name Role Phone Melony Adame APRN Primary Care Provider [phone] Eduardo Mera MD Primary Care Provider Reason for Referral * Consultation (Routine) - Closed Specialty Diagnoses / Procedures Referred By Contac t Referred To Contact Orthopaedic Surgery Diagnoses Osteoarthritis of spine with radiculopathy, cervical region Luke Blandon DO [address] [place] [address] Phone: tel: fax: Medical [facility] [address] [place] [address] Phone: tel: fax: Referral ID Status Reason Start Date Expiration Date Visits Re quested Visits Authorized [id number] Closed 04/30/2023 10/29/2024 1 1 Encounter Details Date Type Department Care Team (Latest Contact Info) Description 04/30/2023 Community [facility] [address] [place] [address] Luke Blandon DO [address] [place] [address] [place] [facility] Osteoarthritis of spine with radiculopathy, cervical [...] Primary documented in this encounter Care Teams Vp Outcomes Relationship Specialty Start Date End Date Melony Adame APRN [address] [place] [address] PCP - General 11/18/20 05/02/23 Eduardo Mera MD [address] [place] [address] [address] [place] [address] PCP - General 05/03/23 documented as of this encounter
--- NOTE | 2025-05-10 19:18 | XR_ITS ---
PROCEDURE INFORMATION: Exam: XR Chest Exam date and time: 05/10/2025 7:48 PM Age: 54 years old Clinical indication: Pain; Chest pressure; Prior surgery; Surgery date: 6+ months; Surgery type: Pacemaker in jun; Additional info: Shortness of breath, chest pain, feels like he is having a heart attack, quit smoking 10-15 yrs ago & smoked for 15 yrs before that. TECHNIQUE: Imaging protocol: Radiologic exam of the chest. Views: 1 view. COMPARISON: CT ANGIO CHEST PE PROTOCOL 08/21/2024 4:34 PM FINDINGS: Tubes, catheters and devices: Left subclavian pacemaker leads overlie the right atrium and right ventricle. Lungs: Unremarkable. No consolidation. Pleural spaces: Unremarkable. No pleural effusion. No pneumothorax. Heart/Mediastinum: Unremarkable. No cardiomegaly. Bones/joints: Unremarkable. IMPRESSION: Left subclavian pacemaker leads overlie the right atrium and right ventricle.
--- NOTE | 2025-05-10 19:20 | HMH.EDCP ---
Discharge Plan Disposition Patient Disposition: Home, Self-Care Prescriptions Prescriptions: New methocarbamol 750 mg tablet 750 mg PO TID PRN (Reason: muscle spasm) Qty: 30 0RF lidocaine 5 % adhesive patch,medicated 1 patch topical DAILY Qty: 15 0RF Rx Instructions: leave on most painful area for up to 12 hrs No Action alprazolam [Xanax] 1 mg tablet 1 mg PO QID Patient Comments: previously given before seeing tru harper 02-06-19 omeprazole 40 mg capsule,delayed release(DR/EC) 40 mg PO DAILY Patient Comments: TAKE 1 CAPSULE BY MOUTH ONCE DAILY 30 MINUTES TO 1 HOUR BEFORE MORNING MEAL chlorthalidone 25 mg tablet 25 mg PO DAILY Qty: 30 2RF metoprolol succinate [Toprol XL] 25 mg tablet extended release 24 hr 25 mg PO BID Qty: 180 3RF amlodipine [Norvasc] 2.5 mg tablet 2.5 mg PO DAILY Qty: 90 3RF valsartan 320 mg tablet 320 mg PO DAILY 90 Days Qty: 90 3RF orphenadrine citrate 100 mg tablet extended release 100 mg PO BID PRN (Reason: .) chlorzoxazone 500 mg tablet 500 mg PO TID Qty: 42 0RF Trintellix 20 mg tablet 20 mg PO DAILY Qty: 30 3RF clotrimazole 1 % cream 1 applic topical BID 14 Days Qty: 30 0RF metoclopramide HCl 10 mg tablet 10 mg PO AC Qty: 60 4RF Rx Instructions: Please take 1 tablet p.o. in the morning 30 minutes before coffee or meal and take 1 tablet 15 to 30 minutes prior to lunch (twice daily) Creon 36,000-114,000- 180,000 unit capsule,delayed release(DR/EC) 1 cap PO .With meals Qty: 100 12RF Rx Instructions: Please take 1 capsule p.o. with meals and administer with meals and/or snacks Referrals Follow up/Referrals: Melony Adame APRN [Primary Care Provider, Medical] - See instructions Activity Restrictions/Add. Instructions Additional Instructions/Restrictions: Your workup today shows no evidence of a heart attack and your chest x-ray is normal. You likely have a muscle strain and I prescribed you a muscle relaxer and lidocaine patches. in addition to these, you can take Tylenol and ibuprofen every 6 hours as needed. I do encourage you to follow-up with your primary care physician if symptoms do not improve. If you develop any new or worsening symptoms, or if you become concerned for your health for any reason, return to the emergency department for evaluation Clinical Impressions Clinical Impression: Left-sided chest pain Print Language Print Language: Tuvaluan Discharge ED Provider: Yohan Chino General Chief Complaint: Chest Pain Stated Complaint: chest pain Time Seen by Provider: 05/10/25 19:03 Mode of Arrival: Ambulatory Source of Information: Patient Description of Symptoms (Recalled from ER Triage Doc. by RN): pt to ED with c/o left chest, left rib, and left shoulder blade pain x1hour w/ N/V. knot noted to left rib cage History of Present Illness HPI narrative: Edvin Purdy is a 54-year-old male with past medical history of cardiac pacemaker, not on aspirin or blood thinners, hypertension who presents to the emergency department for complaints of left-sided chest pain. Patient states that 30 minutes prior to arrival, he was cutting wood and developed left-sided chest pain and shortness of breath. He states that he became diaphoretic but tried taking a shower and it did not improve. He states that he is still having the pain. He denies any tobacco use. He denies any history of heart attacks. He denies any trauma to the area. Related Data Home Medications ?Medication ?Instructions ?Recorded ?Confirmed alprazolam 1 mg tablet (Xanax) 1 mg PO QID Anxiety 02/06/19 05/04/25 omeprazole 40 mg capsule,delayed 40 mg PO DAILY 07/27/24 05/04/25 release orphenadrine citrate 100 mg 100 mg PO BID PRN . 03/23/25 05/04/25 tablet,extended release Previous Rx's ?Medication ?Instructions ?Recorded chlorthalidone 25 mg tablet 25 mg PO DAILY #30 tabs 04/27/24 metoprolol succinate 25 mg 25 mg PO BID #180 tabs 08/27/24 tablet,extended release 24 hr (Toprol XL) amlodipine 2.5 mg tablet (Norvasc) 2.5 mg PO DAILY #90 tabs 11/17/24 valsartan 320 mg tablet 320 mg PO DAILY Hypertension 90 11/17/24 days #90 tabs Creon 36,000 unit-114,000 1 cap PO .With meals #100 caps 06/12/25 unit-180,000 unit capsule,delayed release (ocmlmt-hhtqdssi-ijgbrqg (pork)) metoclopramide HCl 10 mg tablet 10 mg PO AC #60 tabs 12/17/24 vortioxetine 20 mg tablet 20 mg PO DAILY #30 tabs 02/03/25 (Trintellix) clotrimazole 1 % topical cream 1 applic topical BID 2 weeks #30 02/28/25 grams chlorzoxazone 500 mg tablet 500 mg PO TID #42 tabs 05/03/25 lidocaine 5 % topical patch 1 patch topical DAILY #15 ea 05/10/25 methocarbamol 750 mg tablet 750 mg PO TID PRN muscle spasm #30 05/10/25 tabs Allergies Allergy/AdvReac Type Severity Reaction Status Date / Time Tricyclic Antidepressants Allergy Unknown Insomnia Verified 05/04/25 11:07 and Tricy (TRICYCLIC COMPOUNDS) hydrocodone Allergy Insomnia Verified 05/04/25 11:07 [facility] Disclaimer: The information contained in this section may have been updated after the patient was seen, as this information can be updated by other users. Medical History Pacemaker Ascending aorta dilation Edema Tricuspid regurgitation Mitral regurgitation Hx of cardiac pacemaker Abnormal electrocardiogram [ECG] [EKG] HARRISON (obstructive sleep apnea) Hypertension Shortness of Breath Chest pain Generalized anxiety disorder Major depressive disorder SVT (supraventricular tachycardia) Palpitations Cardiac pacemaker in situ Surgical History History of permanent cardiac pacemaker placement Hx of appendectomy History of back surgery History of right shoulder replacement Hx of left knee surgery Family History Other Cancer Heart attack Unknown family medical history Social History Smoking Status: Never smoker second hand exposure: No alcohol intake: current alcohol intake frequency: a few times a week substance use type: denies use current occupational status: other Travel in the last 8 weeks?: None household members: spouse and family housing: house marital status: number of children: 2 current occupational exposures/hazards: No caffeine: Yes Have you lived/traveled outside US in past 30 days?: No Contact w/someone who lives/traveled outside US past 30 days?: No Exposure to someone with infectious disease in past 14 days?: No Do you have a fever (greater than 100.4 F or 38 C)?: No Have you tested positive for COVID-19?: No Exposed to someone with COVID-19 in past 14 days?: No Do you have a sore throat?: No Do you have a cough?: No Do you have any weakness?: No Do you have any diarrhea?: No Are you experiencing any unusual bleeding?: No Do you have any muscle aches/pain?: No Do you have any abdominal pain?: No Are you experiencing loss of taste or smell?: No Other Medical History Have you received the Flu Vaccine for this season: No Have you received the Pneumonia Vaccine: No ROS Obtained: Yes Systems reviewed as appropriate & no additional complaints except as documented Physical Exam General General appearance: alert and in no apparent distress Head Head exam: atraumatic Eye Eye exam: Present normal appearance ENT ENT exam: Present normal external ear exam Neck Neck exam: Present full ROM Chest Chest inspection: Present symmetric chest wall rise and tenderness (left chest wall) Respiratory Respiratory exam: Present normal lung sounds bilaterally; Absent respiratory distress Cardiovascular Cardiovascular exam: Present regular rate and normal rhythm Abdominal Exam Abdominal exam: Present soft; Absent tenderness or guarding exam: Present deferred Extremities Exam Extremities exam: Present normal inspection Back Exam Back exam: Present normal inspection Neurological Exam Neurological exam: Present alert and oriented X3 Psychiatric Psychiatric exam: Present normal affect Skin Skin exam: Present warm and dry HEART Score HEART Score HEART Score assessment performed?: Yes History (anamnesis): Slightly suspicious ECG: Normal Age: 45-65 years Risk factors: 1-2 risk factors Troponin: </= normal limit HEART Score: 2 Critical Care Critical Care Time Critical Care Time: No Medical Decision Making Santosh Inquiry Pt receiving controlled substance: No Vital Signs Vital Signs: 05/10/25 19:04 05/10/25 19:06 05/10/25 19:30 Temperature 97.9 F Temperature Source Oral Pulse Rate 92 H 89 Pulse Rate [Apical] 94 H Respiratory Rate 16 18 24 Blood Pressure 145/88 H 130/83 Blood Pressure [Right Arm] 145/88 H Blood Pressure Mean 108 98 Blood Pressure Mean [Right Arm] 107 Blood Pressure Source [Right Arm] Automatic Cuff Blood Pressure Position [Right Arm] Sitting 02 Sat by Pulse Oximetry 98 98 95 Oxygen Delivery Method Room Air 05/10/25 19:39 05/10/25 19:41 05/10/25 20:00 Temperature 98.3 F Temperature Source Pulse Rate 74 71 93 H Pulse Rate [Apical] Respiratory Rate 17 24 Blood Pressure 147/78 H 115/77 Blood Pressure [Right Arm] Blood Pressure Mean 89 Blood Pressure Mean [Right Arm] Blood Pressure Source [Right Arm] Blood Pressure Position [Right Arm] 02 Sat by Pulse Oximetry 98 96 Oxygen Delivery Method Room Air Lab Data Labs: Lab Results 05/10/25 19:04: WBC 6.6, RBC 4.85, Hgb 15.0, Hct 43.2, MCV 89.1, MCH 30.9, MCHC 34.7, RDW 12.5, Plt Count 257, MPV 10.5 H, Neut % (Auto) 69.8, Lymph % (Auto) 18.4, Howell % (Auto) 8.3, Eos % (Auto) 2.4, Baso % (Auto) 0.8, Neut # (Auto) 4.6, Lymph # (Auto) 1.2, Howell # (Auto) 0.6, Eos # (Auto) 0.2, Baso # (Auto) 0.1, D-Dimer 0.85 H, Sodium 138, Potassium 3.9, Chloride 101, Carbon Dioxide 27, Anion Gap 13.9, BUN 11, Creatinine 1.10, Estimated Creat Clear 146, Estimated GFR 70, Est GFR ( Amer) 85, Glucose 89, Calcium 9.7, Total Bilirubin 0.7, AST 78 H, ALT 95 H, Alkaline Phosphatase 131 H, Troponin I < 0.01, Total Protein 8.7 H, Albumin 5.0, Globulin 3.7 H, Albumin/Globulin Ratio 1.4, Lipase 137 05/10/25 22:05: Troponin I < 0.01 05/10/25 19:04 05/10/25 19:04 Response Orders (Tests/Meds): ED MEDICATIONS Generic Name Dose Route Start Last Admin Trade Name Freq PRN Reason Stop Dose Admin Methocarbamol 500 mg 05/10/25 21:00 05/10/25 20:29 Methocarbamol 500mg Tablet PO 06/09/25 20:59 500 mg BID TJ Administration Discontinued Medications Generic Name Dose Route Start Last Admin Trade Name Amari PRN Reason Stop Dose Admin Acetaminophen 1,000 mg 05/10/25 20:24 05/10/25 20:29 Acetaminophen 500mg Tab PO 05/10/25 20:25 1,000 mg ONCE ONE Administration Aspirin 325 mg 05/10/25 19:18 05/10/25 19:43 Aspirin 325mg Tablet PO 05/10/25 19:19 325 mg ONCE ONE Administration Lidocaine 1 each 05/10/25 20:23 05/10/25 20:29 Lidocaine 5% Transdermal Patch TD 05/10/25 20:24 1 each ONCE ONE Administration Nitroglycerin 0.4 mg 05/10/25 19:18 05/10/25 19:43 Nitroglycerin 0.4mg Sl Tablet SL 05/10/25 19:19 0.4 mg ONCE ONE Administration ORDERS Category Date Time Status CXR --portable [XR chest portable] Stat Exams 05/10/25 19:18 Completed CBC w/Auto Diff [Complete Blood Count Auto Diff] Stat Lab 05/10/25 19:04 Completed CMP [Comprehensive Metabolic Panel] Stat Lab 05/10/25 19:04 Completed D-Dimer Stat Lab 05/10/25 19:04 Completed Lipase Stat Lab 05/10/25 19:04 Completed Troponin I Q3H Lab 05/10/25 22:05 Completed Troponin I Q3H Lab 05/11/25 01:30 Ordered Troponin I Stat Lab 05/10/25 19:04 Completed ECG Data Tracing #1: Attestation: I reviewed this ECG and interpreted as documented below: ECG Narrative: normal sinus rhythm. No ST elevation or depression. MDM Narrative Medical Decision Narrative: Edvin Purdy is a 54-year-old male with past medical history of cardiac pacemaker, not on aspirin or blood thinners, hypertension who presents to the emergency department for complaints of left-sided chest pain. Patient states that 30 minutes prior to arrival, he was cutting wood and developed left-sided chest pain and shortness of breath. He states that he became diaphoretic but tried taking a shower and it did not improve. He states that he is still having the pain. He denies any tobacco use. He denies any history of heart attacks. He denies any trauma to the area. On arrival, patient is normotensive, heart rate in the 90s, in no acute respiratory distress, oxygen saturation appropriate on room air. Physical exam, stated above, revealed uncomfortable appearing male in no significant respiratory distress. Cardiopulmonary exam without wheezing, rales or rhonchi. He has breath sounds bilaterally. Abdomen is soft, nontender nondistended. He has some tenderness over the left anterior lateral ribs but no rash. Differential diagnosis includes, but is not limited to: ACS, pneumothorax, pulmonary embolism, muscle strain, acute pancreatitis, pericarditis, among others. The most morbid conditions were considered and workup was based on these. Workup in the emergency department included: CBC with differential, D-dimer, CMP, troponin, EKG. Patient was administered 325 mg of aspirin as well as her 0.4 mg of sublingual nitroglycerin. Patient did not have significant relief with the nitroglycerin. He was given 1 g of acetaminophen, 500 mg oral methocarbamol and lidocaine patch as well. EKG without evidence of ischemia. See interpretation above. Chest x-ray interpreted by me personally. No focal consolidation, no pneumothorax, no widened mediastinum, no enlargement of the cardiac silhouette. Unremarkable chest x-ray. See radiology report for details. Laboratory studies show no leukocytosis, no anemia, platelets within normal limits. D-dimer 0.85 but negative per years criteria. Electrolytes within normal limits. Initial troponin less than 0.01. Lipase normal at 137. Repeat troponin was also negative at less than 0.01. On reassessment, patient remains in stable condition. I have low concern for cardiac etiology with heart score of 2. I do feel the patient symptomatology is most likely related to a muscle strain. Recommending Robaxin and lidocaine patches as well as Tylenol and ibuprofen. He states that he is followed by pain management as well. Return precautions were given. All questions were answered. He demonstrated understanding and was in agreement this plan. He was then discharged from the emergency department in stable condition.
[2025-05-10 19:31] LABS: Hematocrit 43.2 % (42.0-52.0); Hemoglobin 15.0 g/dL (14.1-18.0); Immature Granulocytes % 0.3 %; Mean Corpuscular HGB Conc 34.7 g/dL (31.8-35.4); Mean Corpuscular Hemoglobin 30.9 pg (27.0-31.2); Mean Corpuscular Volume 89.1 fl (80-94); Nucleated Red Blood Cells % 0 %; Platelet Count 257 K/mm3 (142-424); Red Blood Count 4.85 M/mm3 (4.60-6.20); Red Cell Distribution Width-SD 40.8 fL; White Blood Count 6.6 K/mm3 (4.8-10.8)
[2025-05-10 19:32] LABS: Alanine Aminotransferase 95 U/L (12-78); Albumin Level 5.0 g/dl (3.5-5.0); Albumin/Globulin Ratio 1.4 (1.1-1.8); Alkaline Phosphatase 131 U/L (38-126); Anion Gap 13.9 mEq/L (5-15); Aspartate Amino Transferase 78 U/L (17-59); Bilirubin,Total 0.7 mg/dl (0.2-1.3); Blood Urea Nitrogen 11 mg/dl (9-20); Calcium 9.7 mg/dl (8.4-10.2); Carbon Dioxide 27 mmol/L (22.0-30.0); Chloride 101 mmol/L (98-107); Creatinine Clearance Estimated 146 mL/min (50-200); Creatinine,Serum 1.10 mg/dl (0.66-1.25); D-Dimer 0.85 ug/mL (0.0-0.5); Estimated Glomerular Filt Rate 70 ml/min (>60); GFR (African American) 85 ML/MIN (>60); Globulin 3.7 g/dL (1.3-3.2); Glucose 89 mg/dl (74-100); Lipase 137 U/L (23-300); Potassium 3.9 mmoL/L (3.5-5.1); Sodium 138 mmol/L (136-145); Total Protein,Serum 8.7 g/dl (6.3-8.2)
[2025-05-10] MEDS: NITROGLYCERIN 0.4MG SL TABLET 0.4 MG SL (19:43)
[2025-05-10] MEDS: ASPIRIN 325MG TABLET 325 MG PO (19:43)
[2025-05-10 19:52] LABS: Troponin I < 0.01 ng/ml (0.00-0.034)
[2025-05-10] MEDS: METHOCARBAMOL 500MG TABLET 500 MG PO (20:29)
[2025-05-10] MEDS: LIDOCAINE 5% TRANSDERMAL PATCH 1 EACH TD (20:29)
[2025-05-10] MEDS: ACETAMINOPHEN 500MG TAB 1000 MG PO (20:29)
[2025-05-10 22:52] LABS: Troponin I < 0.01 ng/ml (0.00-0.034)
== END 2025-05-10 23:06 | disposition home or self-care (01) ==
PROVIDERS: Emergency Provider Student in an Organized Health Care Education/Training Program; PCP Nurse Practitioner
DX: R07.89 Other chest pain (principal); R06.02 Shortness of breath; I10 Essential (primary) hypertension; Z86.79 Personal history of other diseases of the circulatory system; Z95.0 Presence of cardiac pacemaker
CPT/HCPCS: 71045; 80053; 83690; 84484; 85025; 85378; 93005; 99285

== ENCOUNTER 2025-05-25 11:25 | Outpatient (CLI) | payer OTHER, SELFPAY ==
[2025-05-25 12:07] LABS: Hematocrit 44.5 % (42.0-52.0); Hemoglobin 14.7 g/dL (14.1-18.0); Immature Granulocytes % 0.4 %; Mean Corpuscular HGB Conc 33.0 g/dL (31.8-35.4); Mean Corpuscular Hemoglobin 30.2 pg (27.0-31.2); Mean Corpuscular Volume 91.4 fl (80-94); Nucleated Red Blood Cells % 0 %; Platelet Count 230 K/mm3 (142-424); Red Blood Count 4.87 M/mm3 (4.60-6.20); Red Cell Distribution Width-SD 43.8 fL; White Blood Count 7.1 K/mm3 (4.8-10.8)
[2025-05-25 12:42] LABS: Alanine Aminotransferase 131 U/L (12-78); Albumin Level 4.9 g/dl (3.5-5.0); Alkaline Phosphatase 122 U/L (38-126); Anion Gap 12.5 mEq/L (5-15); Aspartate Amino Transferase 75 U/L (17-59); Bilirubin,Direct 0.2 mg/dl (0.0-0.4); Bilirubin,Indirect 0.4 mg/dL (0.0-0.9); Bilirubin,Total 0.6 mg/dl (0.2-1.3); Bilirubin,Unconjugated 0.3 mg/dL (0.0-1.1); Blood Urea Nitrogen 11 mg/dl (9-20); Calcium 9.6 mg/dl (8.4-10.2); Carbon Dioxide 26 mmol/L (22.0-30.0); Chloride 101 mmol/L (98-107); Cholesterol 259 mg/dl (140-200); Creatinine,Serum 1.00 mg/dl (0.66-1.25); Estimated Glomerular Filt Rate 78 ml/min (>60); GFR (African American) 95 ML/MIN (>60); Glucose 105 mg/dl (74-100); HDL Cholesterol 49 mg/dl (40-60); Magnesium 2.3 mg/dl (1.6-2.3); Potassium 4.5 mmoL/L (3.5-5.1); Sodium 135 mmol/L (136-145); Total Protein,Serum 7.6 g/dl (6.3-8.2); Triglycerides 278 mg/dl (30-150)
[2025-05-25 12:59] LABS: Free T4 (Free Thyroxine) 0.71 ng/dl (0.78-2.19)
[2025-05-25 13:12] LABS: Thyroid Stimulating Hormone 0.90 uIU/mL (0.465-4.68)
== END 2025-05-25 23:59 | disposition home or self-care (01) ==
LOC: LAB 11:26
PROVIDERS: PCP Nurse Practitioner; Visit Provider Nurse Practitioner Family
DX: R74.8 Abnormal levels of other serum enzymes (principal); R06.00 Dyspnea, unspecified; R07.9 Chest pain, unspecified; I10 Essential (primary) hypertension; R40.0 Somnolence
CPT/HCPCS: 36415; 80048; 80061; 80076; 83735; 84439; 84443; 85025

== ENCOUNTER 2025-05-28 09:11 | Outpatient (CLI) | payer OTHER, SELFPAY ==
--- OUTSIDE RECORDS SUMMARY | 2025-05-28 09:15 | XMS_ITS | Encounter Summary ---
Author Organization [place] [address] Care Team Providers Care Data Processing Operator Name Role Phone Juan Luis Kaminski Primary Care Provider [phone] Encounter Details Date Type Department Care Team (Late st Contact Info) Description 05/19/2015 Orders Only [facility] Arrhythmia Ctr Edg [address] [place] [address] Hussain Brown MD [address] [place] [phone] Social History Tobacco Use Types Packs/Day Years [...] CATH ORDERABLES Final Result Performing Organization Address City/State/[facility] Co de Phone Number SE LAB [address] [place] [phone] documented in this encounter Visit Diagnoses Not on filedocumented in this encounter Care Teams Data Processing Operator Relationship Specialty Start Date End Date Juan Luis Kaminski [address] [place] [address] PCP - General Family Medicine 05/16/15 documented as of this encounter
--- OUTSIDE RECORDS SUMMARY | 2025-05-28 09:15 | XMS_ITS | Encounter Summary ---
Author Organization Healthcare Address [address] [place] [address] Care Team Providers Care Tank Storage Supervisor Name Role Phone Melony Adame APRN Primary Care Provider [phone] Eduardo Mera MD Primary Care Provider [phone] Reason for Referral * Consultation (Routine) - Closed Specialty Diagnoses / Procedures Referred By Contac t Referred To Contact Orthopaedic Surgery Diagnoses Osteoarthritis of spine with radiculopathy, cervical region Luke Blandon DO [address] [place] [address] Phone: tel: fax: Medical Office [facility] [address], [address] [place] [address] Phone: tel: fax: Referral ID Status Reason Start Date Expiration Date Visits Re quested Visits Authorized [id number] Closed 04/30/2023 10/29/2024 1 1 Encounter Details Date Type Department Care Team (Latest Contact Info) Description 04/30/2023 Community [facility] [address] [place] [address] Luke Blandon DO [address] [place] [address] [place] [address] Osteoarthritis of spine with radiculopathy, cervical region [...] Primary documented in this encounter Care Teams Tank Storage Supervisor Relationship Specialty Start Date End Date Melony Adame APRN [address] [place] [address] PCP - General 11/18/20 05/02/23 Eduardo Mera MD [address] [place] [address] [address] [place] [address] PCP - General 05/03/23 documented as of this encounter
--- OUTSIDE RECORDS SUMMARY | 2025-05-28 09:15 | XMS_ITS | Clinical Summary ---
Author Organization [facility] Address [address] [place] [address] Care Team Providers Care Tractor Distributor Name Role Phone Eduardo Mera MD Primary Care Provider [phone] Allergies Active Allergy Reactions Criticality Noted Date [...] 2022 UKY-Zoster Vaccines (1 of 2) 2022 [id number] Vaccine (2 - 2024- season) 2025 12/18/2020 [...] Insurance [employer] Care Teams Tractor Distributor Relationship Specialty Start Date End Date Eduardo Mera MD [address] [place] [address] [address] [place] [address] PCP - General 05/03/23
--- OUTSIDE RECORDS SUMMARY | 2025-05-28 09:15 | XMS_ITS | Clinical Summary ---
Author Organization [facility] Arrhythmia [facility] Address [address] [place] [address] Phone Care Team Providers Care Industrial Hygiene Manager Name Role Phone Juan Luis Kaminski Primary [...] Relation Name Status Comments Father (Age 69) [place] Maternal Grandmother Mother (Age 55) Malignant Neoplastic [...] patient's age to complete this topic Insurance [facility] [id number] Care Teams Industrial Hygiene Manager Relationship Specialty Start Date End Date Juan Luis Kaminski [address] [place] [place] [address] PCP - General Family Medicine 05/16/15
--- NOTE | 2025-05-28 09:30 | CA_ITS ---
APPROVED REPORT EXAM: Comprehensive 2D, Doppler, and color-flow Echocardiogram [employer] Development Specialist: Cat Gambino RT(R) Ht: 5 ft 11 in Wt: 193lbs BSA: 2.08 BP: 130/86 mmHg Indications: pacemaker, HARRISON, abn EKG, chest pain, ex smoker 2D Dimensions LVEF (Pires's) 62.60 % M: 52 - 72 LV Volume 108.20 mL M: 62 - 150 LV Volume Index 52.0 mL/m2 M: 34 - 74 EF AP4 63.50 % EF AP2 62.1 % EF BP 62.6 % GL Strain -21.5 % M-Mode Dimensions RVDd 2.70 cm (0.9-2.6) LA Diam 3.74 cm (1.9-4.0) LVDd 4.87 cm (3.5-5.7) LVDs 3.58 cm (3.5-5.7) IVSd 0.76 cm (0.6-1.1) PWd 0.76 cm (0.6-1.1) EF (Teich) 51.70% FS 26.50% EDV (Teich) 111.20 mL ESV (Teich) 53.70 mL LV Diastology E Decel Time 153 (160-240 msec) E/A Ratio 1.1 Mitral Valve MV E Max Jose R. 57.0 (40-130 cm/s) MV A Velocity 52.0 (40-130 cm/s) E/A Ratio 1.10 MV PHT 45.0 ms Tricuspid Valve TR P. Velocity 229.00 cm/s Left Ventricle The left ventricle is normal size. Left ventricular systolic function is normal. The left ventricular ejection fraction is within the normal range. There is increased left ventricular wall thickness. There is normal LV segmental wall motion. The left ventricular diastolic function is normal. LVEF is 55% Right Ventricle The right ventricle is mildly dilated. The right ventricular systolic function is normal. There is a device lead in the right ventricle. Atria The left atrium size is normal. The right atrium size is normal. There is no color Doppler evidence of interatrial shunt. Aortic Valve The aortic valve opens well. There is no hemodynamically significant aortic valvular stenosis. Trace aortic regurgitation is present. Mitral Valve The mitral valve is normal in structure. No evidence of mitral valve stenosis. Trace mitral regurgitation is present. Tricuspid Valve The tricuspid valve leaflets are thin and pliable. Mild tricuspid regurgitation. RVSP is 20-25 mmHg. Pulmonic Valve The pulmonary valve is grossly normal in structure. Trace pulmonic valve regurgitation is present. Great Vessels The aortic root is normal in size. IVC is normal in size and collapses >50% with inspiration. Pericardium There is a trivial pericardial effusion noted along the RV free wall. No echo indications of tamponade. Other Information Study Quality: Fair Conclusion Normal biventricular systolic function. Mild RV dilation. Mild TR. Trivial pericardial effusion noted along the RV free wall. No echo indications of tamponade. Electronically signed by : Usha Ceja MD 06/06/2025 14:09:34
== END 2025-05-28 23:59 | disposition home or self-care (01) ==
LOC: RT 09:12
PROVIDERS: PCP Nurse Practitioner; Visit Provider Nurse Practitioner Family
DX: I11.9 Hypertensive heart disease without heart failure (principal); G47.33 Obstructive sleep apnea (adult) (pediatric); R94.31 Abnormal electrocardiogram [ECG] [EKG]; R40.0 Somnolence; R74.8 Abnormal levels of other serum enzymes; Z95.0 Presence of cardiac pacemaker; Z87.891 Personal history of nicotine dependence
CPT/HCPCS: 93306

== ENCOUNTER 2025-06-02 08:44 | Outpatient (CLI) | payer OTHER, SELFPAY ==
--- OUTSIDE RECORDS SUMMARY | 2025-06-02 08:47 | XMS_ITS | Clinical Summary ---
Author Organization [facility] Address [address] [facility] [place] [address] Care Team Providers Care De Alcholizer Name Role Phone Eduardo Mera MD Primary Care Provider [phone] Allergies Active Allergy Reactions Criticality Noted Date [...] 2022 UKY-Zoster Vaccines (1 of 2) 2022 [id number] Vaccine (2 - 2024- season) 2025 12/18/2020 [...] Insurance [employer] MEDICA[employer] Care Teams De Alcholizer Relationship Specialty Start Date End Date Eduardo Mera MD [address] [place] [address] [address] [place] [address] PCP - General 05/03/23
--- OUTSIDE RECORDS SUMMARY | 2025-06-02 08:47 | XMS_ITS | Encounter Summary ---
Author Organization Healthcare Address [address] [place] [address] Care Team Providers Care Youth Services Specialist Name Role Phone Melony Adame APRN Primary Care Provider [phone] Eduardo Mera MD Primary Care Provider [phone] Reason for Referral * Consultation (Routine) - Closed Specialty Diagnoses / Procedures Referred By Contac t Referred To Contact Orthopaedic Surgery Diagnoses Osteoarthritis of spine with radiculopathy, cervical region Luke Blandon DO [address] [place] [address] Phone: tel: fax: Medical Office [facility] [address], [address] [place] [address] Phone: tel: fax: Referral ID Status Reason Start Date Expiration Date Visits Re quested Visits Authorized [id number] Closed 04/30/2023 10/29/2024 1 1 Encounter Details Date Type Department Care Team (Latest Contact Info) Description 04/30/2023 Community [facility] [address] [place] [address] Luke Blandon DO [address] [place] [address] [place] [address] Osteoarthritis of spine with radiculopathy, cervical region [...] Primary documented in this encounter Care Teams Youth Services Specialist Relationship Specialty Start Date End Date Melony Adame APRN [address] [place] [address] PCP - General 11/18/20 05/02/23 Eduardo Mera MD [address] [place] [address] [address] [place] [address] PCP - General 05/03/23 documented as of this encounter
--- OUTSIDE RECORDS SUMMARY | 2025-06-02 08:47 | XMS_ITS | Encounter Summary ---
Author Organization [place] [address] Care Team Providers Care Trust Vault Clerk Name Role Phone Juan Luis Kaminski Primary Care Provider Encounter Details Date Type Department Care Team (Late st Contact Info) Description 05/19/2015 Orders Only [facility] Arrhythmia Ctr Edg [address] [facility] [address] [place] [address] Hussain Brown MD [address] [place] [phone] Social History Tobacco Use Types Packs/Day Years [...] CATH ORDERABLES Final Result Performing Organization Address City/State/[facility] Co de Phone Number SE LAB [address] [place] [phone] documented in this encounter Visit Diagnoses Not on filedocumented in this encounter Care Teams Trust Vault Clerk Relationship Specialty Start Date End Date Juan Luis Kaminski [address] [place] [address] PCP - General Family Medicine 05/16/15 documented as of this encounter
--- OUTSIDE RECORDS SUMMARY | 2025-06-02 08:47 | XMS_ITS | Clinical Summary ---
Author Organization [facility] Arrhythmia [facility] Address [address] [place] [address] Phone Care Team Providers Care Senior Auditor Name Role Phone Juan Luis Kaminski Primary Care Provider [phone] Allergies Active Allergy Reactions Criticality Noted Date [...] patient's age to complete this topic Insurance [facility] [id number] Care Teams Senior Auditor Relationship Specialty Start Date End Date Juan Luis Kaminski [address] [place] [address] PCP - General Family Medicine 05/16/15
[2025-06-02 09:05] VITALS: BP 143/85; PULSE 60; RESP 18; TEMP 36.2; O2SAT 98; BMI 26.9
[2025-06-02 09:42] VITALS: BP 154/87; PULSE 60; RESP 18; O2SAT 97
[2025-06-02] MEDS: NITROGLYCERIN 0.4MG SL TABLET SL (09:42)
[2025-06-02 09:45] VITALS: BP 121/72; PULSE 61; RESP 18; O2SAT 97
[2025-06-02 09:48] VITALS: BP 113/68; PULSE 69; RESP 18; O2SAT 98
[2025-06-02 09:53] VITALS: BP 141/77; PULSE 60; RESP 18; O2SAT 96
[2025-06-02] MEDS: 0.9 % SODIUM CHLORIDE 50 ML VIAL IV (09:55)
[2025-06-02] MEDS: IOPAMIDOL-370 (76%);100ML BOTTLE 85 ML IV (09:55)
[2025-06-02] MEDS: SODIUM CHLORIDE 0.9% 10ML SYR (RAD ONLY) 10 ML IV (09:55)
--- NOTE | 2025-06-02 10:00 | CT_ITS ---
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 A noncontrast coronary calcium scan was performed. A CT attenuation threshold of 130 Hounsfield units (HU) was used for the detection of calcium in contiguous voxels of 1 sq mm in area to be counted as individual lesions. Bolus tracking in the ascending aorta with a threshold of 180 HU was performed. Immediately afterwards, ECG synchronized cardiac CT was then performed from the cardiac base to apex using retrospective gating with ECG tube current modulation. A total of 85 mL of Isovue 370 mg/mL contrast medium was administered at 5 mL/sec followed by a saline flush using a biphasic injection protocol. A tube voltage of 120 KVp was used. The patient received the following medications prior to the cardiac CT. 0.4 mg of sublingual nitroglycerin The average heart rate at the time of acquisition was 59 bpm and regular. Image Reconstruction Transaxial images were reconstructed at 0.67 mm slide thickness. Data was reviewed interactively on an advanced workstation capable of 2 and 3-dimensional displays in all conventional reconstruction formats, including multiplanar reformations, maximum intensity projections, curved multiplanar reformations, and volume rendered reconstructions. When applicable, selected routine images describing the relevant coronary anatomy and pathology were saved and sent to PACS. Complications None Technical Quality Overall image quality was good. Coronary artery opacification was adequate. Total DLP (Dose-Length Product) is 1301.6 mGy-cm. The reported value represents the total of one or more individual components during the CT acquisition of this date and at this time, and as such, the same value may appear in more than one CT report depending on the interpreting/reporting physicians. COMPARISON None FINDINGS CT Coronary Calcium Scoring LMA (Left Main Artery) = 0 LAD (Left Anterior Descending) = 4 LCX (Left Coronary Circumflex) = 0 RCA (Right Coronary Artery) = 32 Total Calcium Score = 36 using the AJ-130 method. The observed calcium score of 36 is at 74th percentile for subjects of the same age, sex, and race/ethnicity. The interpretation of the calcium heart score is based on the following continuum*: 0 = no calcified plaque detected (risk of coronary artery disease is very low ??? less than 5%) 1-10 = calcium detected in extremely minimal levels (risk of coronary diseases is still low ??? less than 10%) 11-100 = mild levels of plaque detected with certainty (mild or minimal narrowing of heart arteries is likely) 101-400 = definite,at least moderate levels of plaque detected (relatively high risk of a heart attack within 3-5 years) >401-999 = extensive levels of plaque detected (high risk of heart attack, high levels of vascular disease are present, high likelihood of at least one significant coronary narrowing) *The calcium heart score quantifies the burden of coronary calcification/plaque in the coronary arteries. The calcium heart score is not able to evaluate the presence or burden of non-calcified (i.e. soft) plaque. There is no identifiable calcification in the aortic valve, mitral annulus or mitral valve, pericardium, or myocardium. Coronary CT Angiography The coronary arterial system is right dominant. Quantitative Stenosis Grading: Left Main (LM): The left main originates normally from the left sinus of Valsalva. The LM bifurcates into the left anterior descending artery and left circumflex artery. The LM is patent with no evidence of atherosclerosis. Left Anterior Descending (LAD) and Diagonal Branches: The LAD gives off 3 diagonal branch(es). There is calcified plaque in the proximal LAD segment with < 25% luminal stenosis. There is no evidence of LAD-myocardial bridge. Left Circumflex (LCX) and Obtuse Marginals (OM): The LCX gives off 2 Obtuse Marginal (OM) branch(es). The LCX and its branches are patent with no evidence of atherosclerosis. Right Coronary Artery (RCA): The RCA originates normally from the right sinus of Valsalva. The RCA gives off a posterior descending artery (PDA) and posterolateral (PL) branches. There is calcified plaque in the proximal RCA segment with < 25% luminal stenosis. Non-Coronary Cardiac Findings: Analysis of the left ventricular (LV) structure and function was performed after 3-D reconstruction of the LV from axial images, with user-corrected automatic contouring for assessment of LV volumes and user-defined reconstruction from oblique planes for measurement of 3-D cardiac structure and function. -The left ventricle systolic function is normal. -There is no left atrial appendage filling defect. Two right pulmonary veins and two left pulmonary veins drain normally into the left atrium. -No pericardial thickening or calcification. -Central and branch pulmonary arteries in the [id number] are unremarkable. -Thoracic aorta within the visualized thoracic aortic-branches in the [id number] is unremarkable. Extracardiac Structures No significant extra-cardiac findings. Note, however, that this study is focused on the cardiac findings. IMPRESSION -Presence of coronary calcification with an Agatston score = 36 using the AJ-130 method. -The observed calcium score of 36 is at 74th percentile for subjects of the same age, sex, and race/ethnicity. -Mild, non-obstructive atherosclerotic coronary disease, with no evidence of significant flow-limiting atherosclerosis of the coronary arteries. -CAD-RADS 2. Management recommendations per ACC/AHA guidelines*, as clinically appropriate. *Recommendations: CAD RADS 0: Reassurance. Consider non-atherosclerotic causes of chest pain. CAD RADS 1: Consider non-atherosclerotic causes of chest pain. Consider preventive therapy and risk factor modification. CAD RADS 2: Consider non-atherosclerotic causes of chest pain. Consider preventive therapy and risk factor modification, particularly for patients with nonobstructive plaque in multiple segments. CAD RADS 3: Consider further functional testing. Consider symptom-guided anti-ischemic and preventive pharmacotherapy as well as risk factor modification per published guideline statements. CAD RADS 4A: Consider further functional testing or invasive coronary angiography with revascularization per published guideline statements. Consider symptom-guided anti-ischemic and preventive pharmacotherapy as well as risk factor modification per published guideline statements. CAD RADS 4B: Invasive coronary angiography recommended with revascularization per published guideline statements. Consider symptom-guided anti-ischemic and preventive pharmacotherapy as well as risk factor modification per published guideline statements. CAD RADS 5: Consider invasive angiography and/or viability assessment with revascularization per published guideline statements. Consider symptom-guided anti-ischemic and preventive pharmacotherapy as well as risk factor modification per published guideline statements. CRITICAL RESULT None COMMUNICATION Per this written report The coronary and cardiac findings of this CCTA were reviewed, reported, and signed by Jason Ceja MD (Diesel Locomotive Firer/Fireman) Conclusion Electronically signed by : Usha Ceja MD 06/02/2025 16:09:14
[2025-06-02 10:03] VITALS: BP 130/73; PULSE 60; RESP 18; TEMP 36.2; O2SAT 98
== END 2025-06-02 10:03 | disposition home or self-care (01) ==
PROVIDERS: PCP Nurse Practitioner; Visit Provider Nurse Practitioner Family
DX: I25.10 Atherosclerotic heart disease of native coronary artery without angina pectoris (principal); I10 Essential (primary) hypertension; R40.0 Somnolence; R74.8 Abnormal levels of other serum enzymes
CPT/HCPCS: 75574; Q9967

== ENCOUNTER 2025-06-29 10:05 | Day surgery (SDC) | payer OTHER, SELFPAY ==
[2025-06-29 10:14] VITALS: BP 115/74; PULSE 75; O2SAT 99; BMI 26.4
[2025-06-29] MEDS: DEXAMETHASONE 10MG/ML 1ML VIAL 10 MG (10:37)
[2025-06-29] MEDS: LIDOCAINE 1% 5ML PF VIAL 5 ML (10:37)
[2025-06-29] MEDS: BUPIVACAINE 0.25% 10ML INJ 25 MG IJ (10:37)
[2025-06-29 10:38] VITALS: BP 129/82; PULSE 80; RESP 18; O2SAT 97
[2025-06-29 10:42] VITALS: BP 129/82; PULSE 80; RESP 18; O2SAT 97
[2025-06-29 10:47] VITALS: BP 115/74; PULSE 75; O2SAT 99
--- NOTE | 2025-06-29 10:49 | EXP.PAIN.PRO ---
Procedure Date: 06/29/25 Time: 10:40 Anesthesiologist:: Moris Ahuja CRNA Complications:: None Pre-procedure Diagnosis:: DJD right shoulder. Chronic right shoulder pain. Post-procedure Diagnosis:: Same. Indications for Procedure:: Patient is a pleasant 54-year-old male who comes to our clinic today for repeat right suprascapular nerve block. Patient reports moderate to significant improvement with previous nerve blocks on the right shoulder. Patient has 5/5 strength in the right arm. However, limited range of motion due to right shoulder joint pain. Procedure Details:: Details of the procedure explained to the patient. The patient taken procedure and placed in the sitting position. The over the right shoulder and scapula was cleaned using chlorhexidine as a cleansing solution. Using a 25-gauge inch and half needle the right suprascapular notch was identified. After negative aspiration 4 cc of 1% lidocaine +4 cc of 0.25% Marcaine and 10 mg of dexamethasone was injected. Patient tolerated procedure without difficulty. No complications. Plan and Disposition:: Patient was discharged without incident.
== END 2025-06-29 10:47 | disposition home or self-care (01) ==
PROVIDERS: PCP Nurse Practitioner; Visit Provider Nurse Anesthetist, Certified Registered
DX: M19.011 Primary osteoarthritis, right shoulder (principal); I25.10 Atherosclerotic heart disease of native coronary artery without angina pectoris; F41.1 Generalized anxiety disorder; I10 Essential (primary) hypertension; F32.9 Major depressive disorder, single episode, unspecified; G47.33 Obstructive sleep apnea (adult) (pediatric); Z95.0 Presence of cardiac pacemaker; Z96.611 Presence of right artificial shoulder joint; Z88.5 Allergy status to narcotic agent; Z79.899 Other long term (current) drug therapy
CPT/HCPCS: 64418; J0665; J1100; J2003